=== PATIENT | female | born 1985 | race Two or more races ===

== ENCOUNTER 2025-06-26 09:42 | Emergency (ER) | payer MEDICAID, SELFPAY ==
[2025-06-26 09:42] VITALS: BMI 27.3
[2025-06-26 09:53] VITALS: BP 125/73; PULSE 96; RESP 18; TEMP 36.9; O2SAT 97; BMI 25.0
--- NOTE | 2025-06-26 10:07 | PD.EDRME ---
Rapid Medical Screening Exam E Arrival date/time: 06/26/25 09:42 This is a 40-year-old female that comes into the emergency room with complaints of abdominal pain abdominal distention and bilateral lower extremity swelling. Patient states she was sent by her primary doctor. Patient denies fever or chills. Patient denies any nausea vomiting diarrhea. Patient abdomen seems distended. Patient states has been distended for about a week. Patient denies . Patient reports drinking alcohol but states she does not drink every day. I have greeted and performed a focused initial assessment of this patient. Initial appropriate labs ordered at this time. A comprehensive ED assessment and evaluation of the patient and analysis of all test and completion of medical decision making process will be conducted by additional ED provider. Chief Complaint: Abdominal Pain Time Seen by Provider: 06/26/25 09:42 Vital signs: Vital Signs Temperature 98.4 F 06/26/25 09:53 Pulse Rate 96 06/26/25 09:53 Respiratory Rate 18 06/26/25 09:53 Blood Pressure 125/73 06/26/25 09:53 Pulse Oximetry (%) 97 06/26/25 09:53 Oxygen Delivery Method Room Air 06/26/25 09:53
[2025-06-26 10:43] LABS: Basophils # (Auto) 0.1 Thou/mm3 (0.0-0.2); Basophils % (Auto) 1 % (0-2.5); Eosinophils # (Auto) 0.1 Thou/mm3 (0.0-0.5); Eosinophils % (Auto) 1 % (0-10); Immature Granulocytes Auto 0.05 Thou/mm3 (0.00-0.00); Lymphocytes # (Auto) 1.4 Thou/mm3 (1.0-4.8); Lymphocytes % (Auto) 12 % (10-50); Mean Corpuscular HGB Conc 30.6 g/dl (31.0-37.0); Mean Corpuscular Hemoglobin 25.2 pg (25.0-35.0); Mean Corpuscular Volume 82 fL (80-100); Monocytes # (Auto) 1.2 Thou/mm3 (0.0-0.8); Monocytes % (Auto) 10 % (0-12); Neutrophils # (Auto) 8.6 Thou/mm3 (1.8-7.7); Neutrophils % (Auto) 76 % (37-80); Nucleated Red Blood Cell # 0.00 Thou/mm3 (0.00-0.00); Nucleated Red Blood Cell % 0 /100 WBC (0); Platelet Count 100 Thou/mm3 (140-440); RDW Standard Deviation 61.1 fL (36.4-46.3); Red Blood Count 2.26 Miln/mm3 (4.00-5.20); White Blood Count 11.4 Thou/mm3 (3.6-11.0)
[2025-06-26 11:06] LABS: Alanine Aminotransferase 8 U/L (10-49); Albumin, Serum 2.6 gm/dL (3.5-5.0); Albumin/Globulin Ratio 0.7 (1.2-2.2); Alkaline Phosphatase 224 U/L (46-116); Anion Gap 14 (7-16); Aspartate Amino Transferase 65 U/L (0-34); BUN/Creatinine Ratio 6 Ratio (12-20); Bilirubin,Total 4.7 mg/dL (0.3-1.2); Blood Urea Nitrogen 7 mg/dL (9-23); Calcium 7.6 mg/dL (8.3-10.6); Calcium (Corrected) 8.7 mg/dL (8.5-10.1); Carbon Dioxide 20.0 mMol/L (20.0-31.0); Chloride 92 mMol/L (98-107); Creatinine (Component) 1.2 mg/dL (0.6-1.3); Estimated Creatinine Clearance 50.3 mL/min (>60); Globulin 4.0 gm/dL (2.3-3.5); Glucose 88 mg/dL (74-106); Lipase 25 U/L (12-53); Osmolality,Calculated 250 (275-295); Potassium 3.8 mMol/L (3.4-5.1); Sodium 126 mMol/L (136-145); Total Protein 6.6 gm/dL (5.7-8.2); eGFR 59 See Note
[2025-06-26 11:19] LABS: Hematocrit 18.6 % (36.0-46.0); Hemoglobin 5.7 g/dL (12.0-16.0)
[2025-06-26 11:20] LABS: Path Review Blood Smear Sent to Pathologist
--- NOTE | 2025-06-26 14:46 | PC.NURSE ---
CALLED FOR PT FROM LOBBY/OUTSIDE, NO [email or web address]@ [phone]
--- NOTE | 2025-06-26 15:36 | PC.NURSE ---
NO ANSWER IN LOBBY OR OUTSID OF ED ENTRANCE, X 3 AT [phone] AN D@ [phone].
== END 2025-06-26 15:37 | disposition left against medical advice (07) ==
LOC: SERX 10:14
PROVIDERS: Nurse Practitioner Family; Emergency Provider Emergency Medicine; PCP Family Medicine
DX: R10.9 Unspecified abdominal pain (principal); R22.43 Localized swelling, mass and lump, lower limb, bilateral; R14.0 Abdominal distension (gaseous); Z53.29 Procedure and treatment not carried out because of patient's decision for other reasons
CPT/HCPCS: 36415; 36430; 80053; 81001; 81025; 83690; 85025; 86850; 86900; 86901; 99284

== ENCOUNTER 2025-06-30 14:36 | Inpatient (IN) | payer MEDICAID, SELFPAY ==
[2025-06-30 14:43] VITALS: BP 112/53; PULSE 91; RESP 17; TEMP 36.9; O2SAT 99; BMI 23.4
--- NOTE | 2025-06-30 14:53 | XR_ITS ---
EXAMINATION: PA chest single view TECHNIQUE: Upright PA chest single view Date and time: June 30, 2025, 1715 hours INDICATION: Shortness of breath and abdomen swelling today. FINDINGS: Reduced inspiratory effort Early pneumonia left base with small left pleural effusion No pulmonary edema The osseous structures are intact IMPRESSION: Early pneumonia left base with small left pleural effusion
--- NOTE | 2025-06-30 14:54 | EDRME_ITS ---
Rapid Medical Screening Exam E Arrival date/time: 06/30/25 14:36 Chief Complaint: Abdominal Pain Time Seen by Provider: 06/30/25 14:45 Vital signs: Vital Signs Temperature 98.5 F 06/30/25 14:43 Pulse Rate 91 06/30/25 14:43 Respiratory Rate 17 06/30/25 14:43 Blood Pressure 112/53 L 06/30/25 14:43 Pulse Oximetry (%) 99 06/30/25 14:43 Oxygen Delivery Method Room Air 06/30/25 14:43 [facility] Narrative: Abdominal swelling, BLE swelling and jaundice for the past week. Denies known history of cirrhosis
--- NOTE | 2025-06-30 14:54 | EKG_ITS ---
[facility] Test Date: 2025-06-30 Pat Name: JAMAR PEREZ Department: Room: - Gender: Female [employer]: : 1985 Requested By: Diony Scott Order Number: [id number] Reading MD: Diony Scott Measurements Intervals [place] Rate: 87 P: 28 ID: [id number] QRS: 7 QRSD: 90 T: -20 QT: 388 QTc: 468 Interpretive Statements SINUS RHYTHM POSSIBLE ANTERIOR MYOCARDIAL INFARCTION , OF INDETERMINATE AGE [30 ms Q WAVE IN V3/V4, OR R < 0.2 mV IN V4] No previous ECG available for comparison /[id number]/[email or web address]/[id number].pdf
[2025-06-30 15:25] LABS: Basophils # (Auto) 0.0 Thou/mm3 (0.0-0.2); Basophils % (Auto) 0 % (0-2.5); Eosinophils # (Auto) 0.1 Thou/mm3 (0.0-0.5); Eosinophils % (Auto) 1 % (0-10); Immature Granulocytes Auto 0.06 Thou/mm3 (0.00-0.00); Lymphocytes # (Auto) 0.7 Thou/mm3 (1.0-4.8); Lymphocytes % (Auto) 7 % (10-50); Mean Corpuscular HGB Conc 32.3 g/dl (31.0-37.0); Mean Corpuscular Hemoglobin 26.2 pg (25.0-35.0); Mean Corpuscular Volume 81 fL (80-100); Monocytes # (Auto) 1.0 Thou/mm3 (0.0-0.8); Monocytes % (Auto) 10 % (0-12); Neutrophils # (Auto) 8.1 Thou/mm3 (1.8-7.7); Neutrophils % (Auto) 81 % (37-80); Nucleated Red Blood Cell # 0.02 Thou/mm3 (0.00-0.00); Nucleated Red Blood Cell % 0 /100 WBC (0); Platelet Count 102 Thou/mm3 (140-440); RDW Standard Deviation 58.2 fL (36.4-46.3); Red Blood Count 1.95 Miln/mm3 (4.00-5.20); White Blood Count 10.0 Thou/mm3 (3.6-11.0)
[2025-06-30 15:30] LABS: Hematocrit 15.8 % (36.0-46.0); Hemoglobin 5.1 g/dL (12.0-16.0)
[2025-06-30 15:35] LABS: Ammonia 50 uMol/L (11-32); B-Type Natriuretic Peptide 189 pg/mL (0-100)
[2025-06-30 15:39] LABS: Alanine Aminotransferase 12 U/L (10-49); Albumin, Serum 2.7 gm/dL (3.5-5.0); Albumin/Globulin Ratio 0.7 (1.2-2.2); Alkaline Phosphatase 200 U/L (46-116); Anion Gap 14 (7-16); Aspartate Amino Transferase 86 U/L (0-34); BUN/Creatinine Ratio 13 Ratio (12-20); Bilirubin,Total 5.5 mg/dL (0.3-1.2); Blood Urea Nitrogen 10 mg/dL (9-23); Calcium 8.2 mg/dL (8.3-10.6); Calcium (Corrected) 9.2 mg/dL (8.5-10.1); Carbon Dioxide 18.5 mMol/L (20.0-31.0); Chloride 88 mMol/L (98-107); Creatinine (Component) 0.8 mg/dL (0.6-1.3); Estimated Creatinine Clearance 74.7 mL/min (>60); Globulin 4.0 gm/dL (2.3-3.5); Glucose 103 mg/dL (74-106); Lipase 60 U/L (12-53); Osmolality,Calculated 241 (275-295); Potassium 3.4 mMol/L (3.4-5.1); Sodium 120 mMol/L (136-145); Total Protein 6.7 gm/dL (5.7-8.2); Troponin I < 0.002 ng/mL (0.0-0.045); eGFR > 60 See Note
--- NOTE | 2025-06-30 15:51 | XR_ITS ---
Examination: Abdomen sonogram, Limited Date and time of exam: June 30, 2025, 1608 hours INDICATIONS: Abdominal distention beginning 4 days ago, elevated liver function test on laboratory examination today. Technique: Real-time severino scale transabdominal sonographic images of the upper abdomen obtained. Findings: Gallbladder sludge, no gallstones, normal gallbladder wall. Normal common bile duct 0.3 cm. 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
--- NOTE | 2025-06-30 16:35 | XR_ITS ---
Examination: CT abdomen with intravenous contrast CT pelvis with intravenous contrast 2-D coronal reconstructions 2-D sagittal reconstructions Date and time of exam: June 30, 2025, 1941 hours INDICATIONS: Onset generalized abdominal pain beginning 3 days ago. CTDI: vol (mGy) 6.66 DLP: (mGycm) 373 Technique: Multiple axial sections of the abdomen and pelvis have been obtained. 64 slice high-resolution scanner used. 3 mm axial sections have been obtained, post intravenous injection 60 cc Isovue 370 2-D sagittal, coronal reconstructions obtained. Low dose protocols were performed. One or more of the following dose reduction techniques were used; automated exposure control, adjustment of the mA and/or KV according to patient size, use of iterative reconstruction technique. Findings: Cirrhosis, no focal liver lesions Significant ascites Mild splenomegaly Contracted gallbladder No pancreatic or adrenal mass Anasarca No hydronephrosis Aorta normal size Partial visualization normal-appearing appendix No bowel obstruction No pelvic mass Mild thickening of the urinary bladder wall Mild osteopenia IMPRESSION: Cirrhosis Significant ascites Anasarca No bowel obstruction or appendicitis
[2025-06-30 16:40] LABS: Alcohol, Blood Medical < 3.0 mg/dL (0-10.0)
[2025-06-30 16:42] LABS: INR 1.5 (0.9-1.3); Partial Thromboplastin Time 30.2 Seconds (22.0-36.0); Prothrombin Time 15.6 Seconds (9.0-12.2)
--- NOTE | 2025-06-30 17:31 | PD.EDABDPN ---
ED Abdominal Pain RME/HPI General Chief Complaint: Abdominal Pain Stated complaint: KEYUR LEG SWELLING/ABD DISTENDED X4D/COUGH Time seen by provider: 06/30/25 14:45 Arrival date/time: 06/30/25 14:36 RME / HPI RME / HPI narrative: Abdominal swelling, BLE swelling and jaundice for the past week. Denies known history of cirrhosis DR. MCGRAW MAIN ED EVALUATION 40 year old female with no stated medical history presents to the ED for evaluation of abdominal pain and distention beginning 4 days ago. Pain described as aching in sensation located throughout, rating as moderate. Accompanied by yellowing of skin, and bilateral leg swelling. Patient additionally complains of a cough producing yellow phlegm also beginning 4 days ago. Denies any history of similar symptoms. Denies fevers, chills, chest pain, shortness of breath, n/v/d, or urinary symptoms. Denies any bleeding. Denies being on her menses. Patient admits to drinking alcohol once in a while and during those times drinks only 3 beers. Denies daily alcohol use. Related Data Previous Rx's ?Medication ?Instructions ?Recorded furosemide 20 mg tablet (Lasix) 20 mg PO QAM Cirrhosis 3 months 07/06/25 #90 tabs lactulose 10 gram/15 mL oral 20 g (30 mL) PO BID Cirrhosis 1 07/06/25 solution month #1,800 mL multivitamin with folic acid 400 1 tab PO QDAY 1 month #30 tabs 07/06/25 mcg tablet (Tab-A-Carol) spironolactone 50 mg tablet 50 mg PO QAM Cirrhosis 3 months 07/06/25 #90 tabs sucralfate 100 mg/mL oral 1 g (10 mL) PO QID Ulcers 3 months 07/06/25 suspension #3,600 mL thiamine mononitrate (vit B1) 100 100 mg PO QDAY Alcohol Use 07/06/25 mg tablet Disorder 2 weeks #14 tabs midodrine 5 mg tablet 5 mg PO TID PRN hypotension 2 07/07/25 months #180 tabs Allergies Allergy/AdvReac Type Severity Reaction Status Date / Time No Known Drug Allergies Allergy Verified 06/26/25 09:45 Review of Systems Review of Systems Systems Reviewed: All systems reviewed, normal except as documented Past Medical History Past Medical History NEUROLOGIC: Negative Neurological Disorders CARDIAC: Negative Cardiac Disorders GASTROINTESTINAL: Negative Gastrointestinal Disorders or Hepatitis GENITOURINARY: Negative Genitourinary Disorders or Renal Disease MUSCULOSKELETAL: Negative Musculoskeletal Disorders ENDOCRINE: Negative Endocrine Disorders HEMATOLOGIC: Negative Blood Disorders OTHER HISTORY: Negative Hospitalization Surgical History SURGICAL: Positive Section Social History SMOKING STATUS: Never smoker SUBSTANCE USE: does not use ED Exam Narrative Physical exam: GENERAL APPEARANCE: alert and oriented x 4, jaundice, pallor, mildly tachypneic HEENT: Normocephalic, atraumatic; pupils equal, round, reactive to light; EOMI; scleral icterus; mucous membranes pink, moist; oropharynx clear NECK: Supple LUNGS: CTABL; no wheezes, no rales, no rhonchi HEART: Regular rate, regular rhythm; normal S1, S2; no murmurs ABDOMEN: distended; normal BS; soft, no tenderness, no guarding, no rebound; no masses, no organomegaly, no hernia BACK: no CVA tenderness EXTREMITIES: atraumatic; no edema NEUROLOGIC: awake; alert and oriented x4; cranial nerves II-XII grossly intact; no focal sensory or motor deficits PSYCHIATRIC: appropriate mood and affect SKIN: warm, dry, jaundice and pale; no rashes Course Course Course Narrative: 1800p: Patient signed out to Dr. Waters pending CT and final disposition. Quality Measures none Orders Category Date Time Status Bedside COVID-19 Antigen Test NOW Care 06/30/25 18:07 Completed COVID-19 Screening Questionnaire NOW Care 06/30/25 20:[address] Screening NOW Care 06/30/25 16:35 Completed Decision to Admit X1 Care 06/30/25 20:58 Completed EKG (ED ONLY) *Do not use* NOW Care 06/30/25 14:54 Completed Endoscopy Consents .On arrival Care 06/30/25 21:53 Completed Miscellaneous Nursing Order NOW Care 06/30/25 21:53 Completed Saline [Insert IV] NOW Care 06/30/25 18:07 Completed Straight [In and Out Catheter] X1 Care 06/30/25 18:07 Completed Transfuse,blood/blood products NOW Care 06/30/25 15:35 Completed Consult to Gastroenterology Stat Cons 06/30/25 20:[address] abdomen pelvis w con Stat Exams 06/30/25 16:35 Completed CXR [XR chest 1V] Stat Exams 06/30/25 14:53 Completed EKG (ED Only) Stat Exams 06/30/25 14:54 Draft US abdomen limited Stat Exams 06/30/25 15:51 Completed Alcohol, Blood Medical Stat Lab 06/30/25 15:47 Completed Ammonia Stat Lab 06/30/25 15:07 Completed Amylase Stat Lab 06/30/25 18:31 Completed Antibody Identification Stat Lab 06/30/25 15:47 Completed BNP [B-Type Natriuretic Peptide] Stat Lab 06/30/25 15:07 Completed Bilirubin,Direct Stat Lab 06/30/25 18:31 Completed CBC Stat Lab 06/30/25 15:07 Completed CMP [Comprehensive Metabolic Panel] Stat Lab 06/30/25 15:07 Completed Drug Screen,Urine Stat Lab 06/30/25 17:15 Completed HCG Qualitative,Urine Stat Lab 06/30/25 17:15 Completed Hepatitis Acute Panel Stat Lab 06/30/25 15:07 Completed Influenza A & B Rapid Panel Stat Lab 07/01/25 23:00 Completed LDH (Lactate Dehydrogenase) Stat Lab 06/30/25 18:31 Completed Lipase Stat Lab 06/30/25 15:07 Completed Magnesium Stat Lab 06/30/25 18:31 Completed Misc Send Out* Stat Lab 06/30/25 18:31 Completed PT [Prothrombin Time with INR] Stat Lab 06/30/25 15:07 Completed PTT [Partial Thromboplastin Time] Stat Lab 06/30/25 15:07 Completed Red Blood Cells Stat Lab 06/30/25 15:47 Completed TSH [Thyroid Stimulating Hormone] Stat Lab 06/30/25 18:31 Completed Troponin I Stat Lab 06/30/25 15:07 Completed Type and Screen Stat Lab 06/30/25 15:47 Completed UA [Urinalysis] Stat Lab 06/30/25 17:15 Completed VBG [Venous Blood Gas] Stat Lab 06/30/25 18:31 Completed Furosemide Inj [Lasix Inj] Med 06/30/25 18:07 Discontinued 40 mg IVP X1 ONE Ondansetron Inj [Zofran Inj] Med 06/30/25 18:07 Discontinued 4 mg IVP X1 ONE POTASSIUM CHL 10% Liq 15 ML Med 06/30/25 18:04 Discontinued 40 meq PO X1 ONE cefTRIAXone/D5w 1gm IV premix [Rocephin/D5w 1gm IV Med 06/30/25 19:02 Discontinued premix] 1 gm in 50 ml IV X1 Vital Signs Vital signs: Vital Signs Temperature 98.5 F 06/30/25 14:43 Pulse Rate 91 06/30/25 14:43 Respiratory Rate 17 06/30/25 14:43 Blood Pressure 112/53 L 06/30/25 14:43 Pulse Oximetry (%) 99 06/30/25 14:43 Oxygen Delivery Method Room Air 06/30/25 14:43 Pulse ox is 99% on room air which is adequate. Abdominal Pain MDM MDM Narrative MDM Narrative:: Evelyn Lund am scribing for and in the presence of Dr. Mcgraw. Patient data External records reviewed:: [facility] previous records Clinical information provided by:: patient Social determinants that could affect healthcare access:: alcohol use Patient has the following chronic illnesses:: None reported How is presenting disease/condition affected by chronic disease/condition?: no chronic disease Evaluation data The following diagnostics were reviewed and interpreted by me:: lab results, radiology exam(s) and EKG tracing(s) (EKG @ 14:57p. NSR, rate 87, no STEMI. ) Lab and/or radiology exams considered but not ordered:: None Interpretation Summary: Ordering Physician: Diony Scott PA-C Date of Service: 06/30/25 Procedure(s): XR chest 1V Accession Number(s): [id number] cc: Valerio Powell MD; Nadeem Tellez MD; Diony Scott PA-C~ EXAMINATION: PA chest single view TECHNIQUE: Upright PA chest single view Date and time: June 30, 2025, 1715 hours INDICATION: Shortness of breath and abdomen swelling today. FINDINGS: Reduced inspiratory effort Early pneumonia left base with small left pleural effusion No pulmonary edema The osseous structures are intact IMPRESSION: Early pneumonia left base with small left pleural effusion Dictated By: Nadeem Tellez MD Signed By: <Electronically signed by Nadeem Tellez MD in OV> 06/30/25 165 Ordering Physician: Pily Mcgraw MD Date of Service: 06/30/25 Procedure(s): US abdomen limited Accession Number(s): [id number] cc: Valerio Powell MD; Nadeem Tellez MD; Pily Mcgraw MD~ Examination: Abdomen sonogram, Limited Date and time of exam: June 30, 2025, 1608 hours INDICATIONS: Abdominal distention beginning 4 days ago, elevated liver function test on laboratory examination today. Technique: Real-time severino scale transabdominal sonographic images of the upper abdomen obtained. Findings: Gallbladder sludge, no gallstones, normal gallbladder wall. Normal common bile duct 0.3 cm. 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 Dictated By: Nadeem Tellez MD Signed By: <Electronically signed by Nadeem Tellez MD in OV> 06/30/25 1727 Medications / Prescriptions Medications or Prescriptions considered but not ordered:: None Medication administrations:: Medication Administration History Discontinued Medications Acetaminophen (Acetaminophen 325 Mg Tablet) 650 mg PO Q8H PRN PRN Reason: Fever >100.3 or pain 1-3 Stop: 07/30/25 23:14 Last Admin: 07/06/25 20:41 Dose: 650 mg Documented By: Admin: 07/02/25 22:31 Dose: 650 mg Documented By: CMC Al Hydrox/Mg Hydrox/Simethicone (Mg Hyd/Al Hyd/Will (Maalox Reg) Susp 30 Ml Udc) 30 ml PO Q4HR CRISTOPHER Stop: 07/31/25 21:59 Last Admin: 07/07/25 10:48 Dose: 30 ml Documented By: [email or web address] Admin: 07/07/25 05:20 Dose: 30 ml Documented By: Admin: 07/07/25 01:53 Dose: 30 ml Documented By: Admin: 07/06/25 21:24 Dose: 30 ml Documented By: Admin: 07/06/25 18:14 Dose: Not Given Documented By: KA Non-Admin Reason: Patient Refused Admin: 10/14/25 13:48 Dose: 30 ml Documented By: Admin: 07/06/25 09:02 Dose: 30 ml Documented By: Admin: 07/06/25 05:31 Dose: 30 ml Documented By: Admin: 07/06/25 01:02 Dose: 30 ml Documented By: Admin: 07/05/25 22:02 Dose: 30 ml Documented By: Admin: 07/05/25 17:20 Dose: 30 ml Documented By: Admin: 07/05/25 14:31 Dose: 30 ml Documented By: Admin: 07/05/25 09:51 Dose: 30 ml Documented By: Admin: 07/05/25 05:29 Dose: 30 ml Documented By: Admin: 07/05/25 01:21 Dose: 30 ml Documented By: Admin: 07/04/25 21:11 Dose: 30 ml Documented By: Admin: 07/04/25 18:10 Dose: 30 ml Documented By: Admin: 07/04/25 14:00 Dose: Not Given Documented By: VL Non-Admin Reason: Patient Refused Admin: 07/04/25 10:50 Dose: 30 ml Documented By: Admin: 07/04/25 05:11 Dose: 30 ml Documented By: Admin: 07/04/25 01:20 Dose: 30 ml Documented By: Admin: 07/03/25 21:07 Dose: 30 ml Documented By: Admin: 07/03/25 17:29 Dose: 30 ml Documented By: SC Admin: 07/03/25 14:05 Dose: 30 ml Documented By: SC Admin: 07/03/25 12:30 Dose: 30 ml Documented By: SC Admin: 07/03/25 05:23 Dose: 30 ml Documented By: Admin: 07/03/25 01:22 Dose: 30 ml Documented By: Admin: 07/02/25 21:12 Dose: 30 ml Documented By: Admin: 07/02/25 17:38 Dose: 30 ml Documented By: Admin: 07/02/25 14:11 Dose: 30 ml Documented By: Admin: 07/02/25 09:53 Dose: 30 ml Documented By: Admin: 07/02/25 04:54 Dose: 30 ml Documented By: Admin: 07/02/25 03:00 Dose: 30 ml Documented By: Admin: 07/01/25 20:47 Dose: 30 ml Documented By: TREE Benzocaine (Benzocaine 20% (Hurricaine) Mondamin 1 Dose) 1 dose TOP X1 ONE Stop: 07/01/25 18:15 Benzocaine (Benzocaine 20% (Hurricaine) Mondamin 1 Dose) Confirm Administered Dose 1 dose TOP .STK-MED ONE Stop: 07/01/25 18:32 Bumetanide (Bumetanide Inj 0.25 Mg/Ml Vial 4 Ml) 1 mg IVP BID [facility] Stop: 08/02/25 20:59 Last Admin: 07/04/25 08:53 Dose: 1 mg Documented By: Admin: 07/03/25 21:08 Dose: 1 mg Documented By: CHRISTINE Bumetanide (Bumetanide Inj 0.25 Mg/Ml Vial 4 Ml) 1 mg IVP QDAY [facility] Stop: 08/04/25 08:59 Last Admin: 07/05/25 09:50 Dose: 1 mg Documented By: LIBERTAD Diphenhydramine HCl (Diphenhydramine Inj 50 Mg/Ml Vial) 25 mg IVP [id number] PRN PRN Reason: MODERATE SEDATION Stop: 07/01/25 20:08 Diphenhydramine HCl (Diphenhydramine Inj 50 Mg/Ml Vial) Confirm Administered Dose 50 mg .ROUTE .STK-MED ONE Stop: 07/01/25 18:33 Fentanyl Citrate (Fentanyl Cit Inj 50 Mcg/Ml Amp 2ml) 50 mcg IVP Q2M PRN PRN Reason: MODERATE SEDATION Stop: 07/01/25 20:08 Fentanyl Citrate (Fentanyl Cit Inj 50 Mcg/Ml Amp 2ml) Confirm Administered Dose 100 mcg .ROUTE .STK-MED ONE Stop: 07/01/25 18:32 Folic Acid (Folic Acid 1 Mg Tablet) 1 mg PO QDAY [facility] Stop: 08/05/25 08:59 Last Admin: 07/07/25 09:24 Dose: 1 mg Documented By: Admin: 07/06/25 08:23 Dose: 1 mg Documented By: PREMA Furosemide (Furosemide Inj 10 Mg/Ml 4ml Vial) 40 mg IVP X1 ONE Stop: 06/30/25 18:08 Last Admin: 06/30/25 19:06 Dose: 40 mg Documented By: TOMMY Furosemide (Furosemide 40 Mg Tablet) 40 mg PO QDAY CRISTOPHER Stop: 07/31/25 08:59 Furosemide (Furosemide Inj 10 Mg/Ml 4ml Vial) 40 mg IVP QDAY CRISTOPHER Stop: 07/31/25 08:59 Furosemide (Furosemide Inj 10 Mg/Ml 4ml Vial) 20 mg IVP QDAY CRISTOPHER Stop: 07/31/25 08:59 Last Admin: 07/03/25 08:42 Dose: 20 mg Documented By: SC Admin: 07/02/25 09:53 Dose: 20 mg Documented By: Admin: 07/01/25 09:59 Dose: 20 mg Documented By: LIBERTAD Furosemide (Furosemide Inj 10 Mg/Ml Vial 2 Ml) 20 mg IVP X1 ONE Stop: 07/01/25 13:57 Last Admin: 07/01/25 16:17 Dose: 20 mg Documented By: LIBERTAD Furosemide (Furosemide 20 Mg Tablet) 20 mg PO QAM CRISTOPHER Stop: 08/06/25 08:59 Last Admin: 07/07/25 09:24 Dose: 20 mg Documented By: LOU Heparin Sodium (Porcine) (Heparin Sod Inj 5000 Unit/Ml Vial) 5,000 unit SC Q8HR CRISTOPHER Stop: 07/14/25 22:14 Last Admin: 07/07/25 05:19 Dose: 5,000 unit Documented By: DUARTE Co-signed By: OK Admin: 07/06/25 21:24 Dose: 5,000 unit Documented By: DUARTE Co-signed By: OK Admin: 07/06/25 13:50 Dose: Not Given Documented By: PREMA Non-Admin Reason: Patient Refused Admin: 07/06/25 06:11 Dose: 5,000 unit Documented By: DUARTE Co-signed By: MANDO Admin: 07/05/25 21:59 Dose: Not Given Documented By: EMERALD Non-Admin Reason: low platelets hold per Admin: 07/05/25 14:31 Dose: 5,000 unit Documented By: LIBERTAD Co-signed By: SANTI Admin: 07/05/25 05:30 Dose: 5,000 unit Documented By: CHRISTINE Co-signed By: IDA Admin: 07/04/25 21:11 Dose: 5,000 unit Documented By: CHRISTINE Co-signed By: JACOB Admin: 07/04/25 14:09 Dose: 5,000 unit Documented By: VL Co-signed By: AC Admin: 07/04/25 05:12 Dose: 5,000 unit Documented By: CHRISTINE Co-signed By: WO Admin: 07/03/25 21:07 Dose: 5,000 unit Documented By: CMC Co-signed By: KISHA Admin: 07/03/25 14:06 Dose: 5,000 unit Documented By: SC Co-signed By: JT Admin: 07/03/25 05:24 Dose: 5,000 unit Documented By: CMC Co-signed By: IG Admin: 07/02/25 21:13 Dose: 5,000 unit Documented By: CMC Co-signed By: VR Admin: 07/02/25 14:11 Dose: 5,000 unit Documented By: MAMADOU Co-signed By: LIBERTAD Admin: 07/02/25 04:54 Dose: 5,000 unit Documented By: JACOB Co-signed By: KUSHAL Admin: 07/01/25 20:47 Dose: 5,000 unit Documented By: TREE Co-signed By: IDA Admin: 07/01/25 16:16 Dose: 5,000 unit Documented By: LIBERTAD Co-signed By: ALANA Admin: 07/01/25 06:10 Dose: 5,000 unit Documented By: TREE Co-signed By: IDA Admin: 06/30/25 22:33 Dose: 5,000 unit Documented By: MICHAEL Co-signed By: TOY Ceftriaxone Sodium/Dextrose (Rocephin/D5w 1gm Iv Premix) 1 gm in 50 mls @ 100 mls/hr IV X1 ONE Stop: 06/30/25 19:31 Last Infusion: 06/30/25 20:18 Dose: Infused Documented By: Admin: 06/30/25 19:31 Dose: 100 mls/hr Documented By: EE Ceftriaxone Sodium/Dextrose (Rocephin/D5w 1gm Iv Premix) 1 gm in 50 mls @ 100 mls/hr IV QDAY CRISTOPHER Stop: 07/08/25 08:59 Last Infusion: 07/05/25 19:25 Dose: Infused Documented By: Admin: 07/05/25 09:51 Dose: 100 mls/hr Documented By: Infusion: 07/04/25 09:40 Dose: Infused Documented By: Admin: 07/04/25 09:10 Dose: 100 mls/hr Documented By: Infusion: 07/03/25 09:20 Dose: Infused Documented By: Admin: 07/03/25 08:50 Dose: 100 mls/hr Documented By: SC Infusion: 07/02/25 10:23 Dose: Infused Documented By: Admin: 07/02/25 09:53 Dose: 100 mls/hr Documented By: Infusion: 07/01/25 10:29 Dose: Infused Documented By: Admin: 07/01/25 09:59 Dose: 100 mls/hr Documented By: ASHLYEB Octreotide Acetate 1,000 mcg/ (Sodium Chloride) 102 mls @ 5.1 mls/hr IV .Q20H CRISTOPHER; Protocol Stop: 07/05/25 18:24 Octreotide Acetate 1,000 mcg/ (Sodium Chloride) 102 mls @ 5.1 mls/hr IV .Q20H ONE; Protocol Stop: 07/01/25 18:25 Last Infusion: 07/01/25 20:23 Dose: 0 mcg/hr, 0 mls/hr Documented By: Admin: 07/01/25 00:32 Dose: 50 mcg/hr, 5.1 mls/hr Documented By: HV Albumin Human (Albuminex 25% Ivpb) 25 gm in 100 mls @ 100 mls/hr IV QDAY CRISTOPHER Stop: 07/31/25 08:11 Last Admin: 07/03/25 08:41 Dose: 100 mls/hr Documented By: SC Infusion: 07/02/25 10:53 Dose: Infused Documented By: Admin: 07/02/25 09:53 Dose: 100 mls/hr Documented By: Infusion: 07/01/25 10:58 Dose: Infused Documented By: Admin: 07/01/25 10:19 Dose: Not Given Documented By: LEDEB Non-Admin Reason: dup med, pt received daily dose Admin: 07/01/25 09:58 Dose: 100 mls/hr Documented By: LIBERTAD Octreotide Acetate 1,000 mcg/ (Sodium Chloride) 102 mls @ 5.1 mls/hr IV .Q20H CRISTOPHER; Protocol Stop: 07/06/25 19:31 Last Admin: 07/06/25 21:41 Dose: Not Given Documented By: DUARTE Non-Admin Reason: Cancelled by Provider Admin: 07/06/25 07:55 Dose: 50 mcg/hr, 5.1 mls/hr Documented By: Infusion: 07/06/25 07:55 Dose: Infused Documented By: Admin: 07/05/25 12:37 Dose: 50 mcg/hr, 5.1 mls/hr Documented By: Infusion: 07/05/25 08:07 Dose: Infused Documented By: Admin: 07/04/25 12:07 Dose: 50 mcg/hr, 5.1 mls/hr Documented By: Infusion: 07/04/25 10:05 Dose: Infused Documented By: Admin: 07/03/25 14:05 Dose: 50 mcg/hr, 5.1 mls/hr Documented By: SC Infusion: 07/03/25 10:27 Dose: Infused Documented By: SC Admin: 07/02/25 14:27 Dose: 50 mcg/hr, 5.1 mls/hr Documented By: Infusion: 07/02/25 14:27 Dose: Infused Documented By: Admin: 07/01/25 20:44 Dose: 50 mcg/hr, 5.1 mls/hr Documented By: HV Potassium Chloride (Kcl Ivpb) 10 meq in 100 mls @ 100 mls/hr IV Q1H CRISTOPHER Stop: 07/02/25 12:05 Last Admin: 07/02/25 18:18 Dose: Not Given Documented By: LIBERTAD Non-Admin Reason: retimed 4th bag Admin: 07/02/25 15:43 Dose: 50 mls/hr Documented By: Infusion: 07/02/25 14:59 Dose: Infused Documented By: Admin: 07/02/25 12:59 Dose: 50 mls/hr Documented By: Infusion: 07/02/25 11:53 Dose: Infused Documented By: Admin: 07/02/25 09:53 Dose: 50 mls/hr Documented By: TC Magnesium Sulfate (Magnesium Sulfate Ivpb) 4 gm in 50 mls @ 12.5 mls/hr IV X1 ONE Stop: 07/02/25 12:06 Last Infusion: 07/02/25 14:15 Dose: Infused Documented By: Admin: 07/02/25 10:15 Dose: 12.5 mls/hr Documented By: TC Potassium Chloride (Kcl Ivpb) 10 meq in 100 mls @ 100 mls/hr IV Q1H CRISTOPHER Stop: 07/02/25 19:14 Last Admin: 07/02/25 18:18 Dose: 50 mls/hr Documented By: LIBERTAD Albumin Human (Albuminex 25% Ivpb) 25 gm in 100 mls @ 100 mls/hr IV X1 ONE Stop: 07/03/25 10:59 Last Admin: 07/03/25 10:57 Dose: Not Given Documented By: SC Non-Admin Reason: per md montes pt already received this am Potassium Phosphate (Pot Phos 15 Mmol In Ns 250 Ml) 15 mmol in 250 mls @ 62.5 mls/hr IV Q4H CRISTOPHER Stop: 07/04/25 15:37 Last Admin: 07/04/25 14:13 Dose: 62.5 mls/hr Documented By: Infusion: 07/04/25 13:10 Dose: Infused Documented By: Admin: 07/04/25 09:10 Dose: 62.5 mls/hr Documented By: VL Potassium Phosphate (Pot Phos 15 Mmol In Ns 250 Ml) 15 mmol in 250 mls @ 62.5 mls/hr IV X1 ONE Stop: 07/04/25 19:37 Last Infusion: 07/05/25 19:26 Dose: Infused Documented By: Admin: 07/04/25 18:10 Dose: 62.5 mls/hr Documented By: VL Magnesium Sulfate (Magnesium Sulfate Ivpb) 4 gm in 50 mls @ 12.5 mls/hr IV X1 ONE Stop: 07/04/25 11:38 Last Admin: 07/04/25 10:47 Dose: 12.5 mls/hr Documented By: VL Magnesium Sulfate (Magnesium Sulfate Ivpb) 4 gm in 50 mls @ 12.5 mls/hr IV X1 ONE Stop: 07/05/25 11:50 Last Infusion: 07/05/25 19:25 Dose: Infused Documented By: Admin: 07/05/25 09:50 Dose: 12.5 mls/hr Documented By: ASHLYEB Albumin Human (Albuminex 25% Ivpb) 25 gm in 100 mls @ 100 mls/hr IV QDAY CRISTOPHER Stop: 08/05/25 08:21 Last Admin: 07/07/25 09:06 Dose: 100 mls/hr Documented By: Infusion: 07/06/25 10:05 Dose: Infused Documented By: Admin: 07/06/25 09:05 Dose: 100 mls/hr Documented By: Infusion: 07/06/25 09:05 Dose: Infused Documented By: Admin: 07/06/25 09:03 Dose: 100 mls/hr Documented By: PREMA Ibuprofen (Ibuprofen Tab 400 Mg Tablet) 400 mg PO Q6HR PRN PRN Reason: Fever > 100.3 Stop: 07/30/25 21:58 Ibuprofen (Ibuprofen Tab 600 Mg Tablet) 600 mg PO Q6H PRN PRN Reason: PAIN SCALE 1-3 (mild Stop: 07/30/25 21:58 Ketorolac Tromethamine (Ketorolac Inj 30 Mg/Ml Vial) 15 mg IVP Q6HR PRN PRN Reason: Pain 4-7 Stop: 07/05/25 23:14 Lactulose (Lactulose Syrup 20 Gm/30 Ml Udc) 20 gm PO TID CRISTOPHER; Protocol Stop: 07/30/25 22:14 Last Admin: 07/04/25 05:11 Dose: 20 gm Documented By: Admin: 07/03/25 21:07 Dose: 20 gm Documented By: Admin: 07/03/25 14:05 Dose: 20 gm Documented By: SC Admin: 07/03/25 05:24 Dose: Not Given Documented By: [facility] Non-Admin Reason: Patient Refused Admin: 07/02/25 21:12 Dose: 20 gm Documented By: Admin: 07/02/25 14:11 Dose: 20 gm Documented By: Admin: 07/02/25 04:54 Dose: 20 gm Documented By: Admin: 07/01/25 20:47 Dose: 20 gm Documented By: Admin: 07/01/25 16:16 Dose: 20 gm Documented By: LIBERTAD Comments: pt in [place] for para Admin: 07/01/25 06:10 Dose: 20 gm Documented By: Admin: 06/30/25 22:33 Dose: 20 gm Documented By: MICHAEL Lactulose (Lactulose Syrup 20 Gm/30 Ml Udc) 20 gm PO TID CRISTOPHER; Protocol Stop: 07/30/25 22:14 Last Admin: 07/05/25 05:29 Dose: 20 gm Documented By: Admin: 07/04/25 21:12 Dose: Not Given Documented By: CHRISTINE Non-Admin Reason: pt has had 4 bM today Admin: 07/04/25 14:09 Dose: 20 gm Documented By: RIAN Lactulose (Lactulose Syrup 20 Gm/30 Ml Udc) 20 gm PO BID CRISTOPHER; Protocol Stop: 08/04/25 08:59 Last Admin: 07/07/25 09:26 Dose: 20 gm Documented By: Admin: 07/06/25 20:40 Dose: 20 gm Documented By: Admin: 07/06/25 08:19 Dose: 20 gm Documented By: Admin: 07/05/25 20:01 Dose: Not Given Documented By: EMERALD Non-Admin Reason: Per Protocol Admin: 07/05/25 09:52 Dose: Not Given Documented By: LIBERTAD Non-Admin Reason: >3 BM Lidocaine HCl (Lidocaine Inj Pf 1% 30 Ml Vial) Confirm Administered Dose 30 ml .ROUTE .STK-MED ONE Stop: 07/01/25 14:02 Midazolam HCl (Midazolam Inj 1 Mg/Ml Vial 2 Ml) 2 mg IVP Q2M PRN PRN Reason: Moderate Sedation Stop: 07/01/25 20:08 Midazolam HCl (Midazolam Inj 1 Mg/Ml Vial 2 Ml) Confirm Administered Dose 4 mg .ROUTE .STK-MED ONE Stop: 07/01/25 18:32 Midodrine (Midodrine 5 Mg Tablet) 10 mg PO TID [facility] Stop: 08/05/25 08:29 Last Admin: 07/06/25 09:02 Dose: 10 mg Documented By: PREMA Midodrine (Midodrine 5 Mg Tablet) 10 mg PO TID [facility] Stop: 08/05/25 13:59 Last Admin: 07/07/25 05:23 Dose: 10 mg Documented By: Admin: 07/06/25 21:22 Dose: 10 mg Documented By: Admin: 07/06/25 13:50 Dose: Not Given Documented By: PREMA Non-Admin Reason: Per Protocol Multivitamins (Multivitamins Tablet) 1 tab PO QDAY [facility] Stop: 08/05/25 08:59 Last Admin: 07/07/25 09:24 Dose: 1 tab Documented By: Admin: 07/06/25 08:22 Dose: 1 tab Documented By: PREMA Ondansetron HCl (Ondansetron Inj 2 Mg/Ml Inj 2 Ml) 4 mg IVP X1 ONE; Protocol Stop: 06/30/25 18:08 Last Admin: 06/30/25 19:06 Dose: 4 mg Documented By: TOMMY Ondansetron HCl (Ondansetron Inj 2 Mg/Ml Inj 2 Ml) 4 mg IVP Q6H PRN; Protocol PRN Reason: NAUSEA OR VOMITING Stop: 07/30/25 21:58 Pantoprazole Sodium (Pantoprazole Inj 40 Mg Vial) 40 mg IVP BID CRISTOPHER Stop: 07/30/25 22:29 Last Admin: 07/01/25 09:59 Dose: 40 mg Documented By: Admin: 06/30/25 23:52 Dose: 40 mg Documented By: MICHAEL Pantoprazole Sodium (Pantoprazole 40 Mg Tablet) 40 mg PO BID CRISTOPHER Stop: 07/30/25 22:29 Pantoprazole Sodium (Pantoprazole 40 Mg Tablet) 40 mg PO BID CRISTOPHER; Protocol Stop: 07/31/25 20:59 Last Admin: 07/07/25 09:25 Dose: 40 mg Documented By: Admin: 07/06/25 20:00 Dose: 40 mg Documented By: Admin: 07/06/25 08:22 Dose: 40 mg Documented By: Admin: 07/05/25 20:01 Dose: 40 mg Documented By: Admin: 07/05/25 09:51 Dose: 40 mg Documented By: Admin: 07/04/25 21:11 Dose: 40 mg Documented By: Admin: 07/04/25 09:08 Dose: 40 mg Documented By: Admin: 07/03/25 21:08 Dose: 40 mg Documented By: Admin: 07/03/25 08:48 Dose: 40 mg Documented By: SC Admin: 07/02/25 21:12 Dose: 40 mg Documented By: Admin: 07/02/25 09:53 Dose: 40 mg Documented By: Admin: 07/01/25 20:45 Dose: 40 mg Documented By: TREE Potassium Chloride (Potassium Chloride 10% 20 Meq/15 Ml Udc) 40 meq PO X1 ONE Stop: 06/30/25 18:05 Last Admin: 06/30/25 19:07 Dose: 40 meq Documented By: TOMMY Potassium Chloride (Potassium Chloride 10% 20 Meq/15 Ml Udc) 40 meq PO X1 ONE Stop: 07/01/25 13:58 Last Admin: 07/01/25 16:16 Dose: 40 meq Documented By: LIBERTAD Comments: pt in [place] for para Potassium Chloride (Potassium Chloride 10% 20 Meq/15 Ml Udc) 40 meq PO X1 ONE Stop: 07/02/25 08:07 Last Admin: 07/02/25 11:27 Dose: 40 meq Documented By: MAMADOU Potassium Phos/Sodium Phos (Naph,[facility] Mbdb 1 Packet (1.5 Gm)) 1 packet PO X1 ONE Stop: 07/03/25 08:08 Last Admin: 07/03/25 08:48 Dose: 1 packet Documented By: EMY Potassium Phos/Sodium Phos (Naph,[facility] Mbdb 1 Packet (1.5 Gm)) 1 packet PO X1 ONE Stop: 07/06/25 08:20 Last Admin: 07/06/25 09:03 Dose: 1 packet Documented By: PREMA Promethazine HCl/Dextromethorphan (Promethazine/Dm Syrup 5 Ml Dose) 10 ml PO Q4HR PRN; Protocol PRN Reason: COUGH Stop: 08/03/25 05:29 Last Admin: 07/04/25 06:08 Dose: 10 ml Documented By: CHRISTINE Rifaximin (Rifaximin 550 Mg Tablet) 550 mg PO BID [facility] Stop: 07/07/25 22:14 Last Admin: 07/01/25 09:59 Dose: 550 mg Documented By: Admin: 07/01/25 00:32 Dose: 550 mg Documented By: TREE Rifaximin (Rifaximin 550 Mg Tablet) 550 mg PO BID [facility] Stop: 07/09/25 09:59 Last Admin: 07/04/25 21:11 Dose: 550 mg Documented By: Admin: 07/04/25 09:08 Dose: 550 mg Documented By: Admin: 07/03/25 21:07 Dose: 550 mg Documented By: Admin: 07/03/25 08:49 Dose: 550 mg Documented By: SC Admin: 07/02/25 21:12 Dose: 550 mg Documented By: Admin: 07/02/25 10:29 Dose: 550 mg Documented By: MAMADOU Spironolactone (Spironolactone 25 Mg Tablet) 100 mg PO DAILY CRISTOPHER Stop: 07/31/25 08:59 Last Admin: 07/06/25 08:22 Dose: Not Given Documented By: PREMA Non-Admin Reason: Held for BP per MD Admin: 07/05/25 09:51 Dose: 100 mg Documented By: Admin: 07/04/25 09:11 Dose: 100 mg Documented By: Admin: 07/03/25 08:49 Dose: 100 mg Documented By: Admin: 07/02/25 09:53 Dose: 100 mg Documented By: Admin: 07/01/25 09:59 Dose: 100 mg Documented By: LIBERTAD Spironolactone (Spironolactone 25 Mg Tablet) 50 mg PO DAILY CRISTOPHER Stop: 08/06/25 08:59 Last Admin: 07/07/25 09:26 Dose: 50 mg Documented By: [email or web address] Sucralfate (Sucralfate Susp 1 Gm/10 Ml Udc) 1 gm PO QID CRISTOPHER Stop: 07/31/25 20:59 Last Admin: 07/07/25 05:20 Dose: 1 gm Documented By: Admin: 07/06/25 20:00 Dose: 1 gm Documented By: Admin: 07/06/25 17:21 Dose: 1 gm Documented By: Admin: 07/06/25 12:07 Dose: 1 gm Documented By: Admin: 07/06/25 05:31 Dose: 1 gm Documented By: Admin: 07/05/25 20:01 Dose: 1 gm Documented By: Admin: 07/05/25 17:20 Dose: 1 gm Documented By: Admin: 07/05/25 12:09 Dose: 1 gm Documented By: Admin: 07/05/25 05:30 Dose: 1 gm Documented By: Admin: 07/04/25 21:11 Dose: 1 gm Documented By: Admin: 07/04/25 17:05 Dose: 1 gm Documented By: Admin: 07/04/25 12:11 Dose: 1 gm Documented By: Admin: 07/04/25 05:11 Dose: 1 gm Documented By: Admin: 07/03/25 21:07 Dose: 1 gm Documented By: Admin: 07/03/25 17:29 Dose: 1 gm Documented By: SC Admin: 07/03/25 12:30 Dose: 1 gm Documented By: SC Admin: 07/03/25 05:23 Dose: 1 gm Documented By: Admin: 07/02/25 21:12 Dose: 1 gm Documented By: Admin: 07/02/25 17:38 Dose: 1 gm Documented By: Admin: 07/02/25 12:58 Dose: 1 gm Documented By: Admin: 07/02/25 04:54 Dose: 1 gm Documented By: Admin: 07/01/25 20:45 Dose: 1 gm Documented By: TREE Thiamine HCl (Thiamine 100 Mg Tablet) 100 mg PO QDAY CRISTOPHER Stop: 08/05/25 08:59 Last Admin: 07/07/25 09:24 Dose: 100 mg Documented By: [email or web address] Admin: 07/06/25 08:22 Dose: 100 mg Documented By: PREMA None Consultations Consultation(s) initiated? (list below): No Diagnosis Differential diagnosis abdominal pain: abdominal pain and other (jaundice, cirrhosis) Most likely diagnosis given after review of the tests above:: Jaundice Admission Indicated Admission indicated?: not indicated Explain why admission is indicated or not indicated:: Signed out pending final disposition. Admission Request Was there a request for admission?: No Disposition Plan Disposition Plan: other (specify) (Patient signed out to Dr. Waters. ) Discharge Plan Plan Patient Disposition: Admit Acute Care w/in Hospital Patient condition on transfer: Stable Problem List Clinical Impression: Liver cirrhosis, Severe anemia
[2025-06-30 18:01] LABS: Collection Type, Urine Clean Catch
[2025-06-30 18:07] LABS: HCG Qualitative,Urine Negative
[2025-06-30 18:26] VITALS: BP 120/73; PULSE 80; RESP 17; TEMP 36.4; O2SAT 99
[2025-06-30 18:37] LABS: Bacteria,Urine Rare; Bilirubin,Urine Negative (Negative); Blood,Urine 3+ (Negative); Clarity,Urine Turbid (Clear/Hazy); Color,Urine Yellow (Lt Yel-Yel); Glucose, Urine Negative (Negative); Ketones,Urine Trace (Negative); Leukocyte Esterase,Urine Positive (Negative); Nitrite,Urine Negative (Negative); PH,Urine 6.0 (5.0-7.0); Protein,Urine Negative (Neg - Trace); RBC,Urine 70 /hpf (0-3); Specific Gravity,Urine 1.007 (1.001-1.035); Squamous Epithelial Cell,Urine < 1 /hpf (0-5); Urobilinogen,Urine Negative mg/dL (0.0-1.0); WBC,Urine 22 /hpf (0-5)
[2025-06-30 18:38] LABS: Base Excess, Venous -3 (-3-3); O2 Saturation, Venous 85 % (96-97); PCO2, Venous 26 mmHg (36-56); PO2, Venous 47 mmHg (15-58); pH, Venous 7.50 (7.33-7.66)
[2025-06-30 19:06] VITALS: BP 120/73; PULSE 83
[2025-06-30] MEDS: FUROSEMIDE INJ 10 MG/ML 4ML VIAL 40 MG IVP (19:06)
[2025-06-30] MEDS: ONDANSETRON INJ 2 MG/ML INJ 2 ML 4 MG IVP (19:06)
[2025-06-30] MEDS: POTASSIUM CHLORIDE 10% 20 MEQ/15 ML UDC 40 MEQ PO (19:07)
[2025-06-30 19:23] LABS: Amylase 55 U/L (30-118); Bilirubin,Direct 3.5 mg/dL (0.0-0.3); Magnesium 1.6 mg/dL (1.6-2.6); Thyroid Stimulating Hormone 1.73 uIU/mL (0.55-4.78)
[2025-06-30] MEDS: cefTRIAXone/D5w 1gm IV premix 1 GM/50 ML BAG IV (19:31)
[2025-06-30 19:34] LABS: Amphetamine/Methamp Scrn,U Negative (Negative); Barbiturate Screen,Urine Negative (Negative); Benzodiazepines Screen,Urine Negative (Negative); Benzoylecgonine Screen, Ur Negative (Negative); Fentanyl Screen,Urine Negative (Negative); Opiate Screen,Urine Negative (Negative); THC Screen,Urine Negative (Negative)
[2025-06-30 20:13] VITALS: BP 125/72; PULSE 80; RESP 20; TEMP 36.6; O2SAT 100
--- NOTE | 2025-06-30 20:16 | EDNOTE_ITS ---
Emergency Room Addendum <Sidra Powell - Last Filed: 06/30/25 22:03> Addendum Narrative: I took over the care from Dr. Mcgraw at 6 PM on 06/30/2025, see notes for complete H&P and ED course. I reviewed all diagnostic test results. My review of the CT abdomen pelvis report is: - Cirrhosis - Significant ascites - Anasarca At this point, diagnoses include: Liver cirrhosis Severe anemia Treatment here from me included: Lasix 40mg IV Zofran 4mg IV Oral KCL 40meq Rocephin 1g IV I discussed the case with our venetian blind machine operator, Dr. Goncalves, and our hospitalist. About the presentation and exam and diagnostics and treatments here. And need of further care in the hospital. Will accept the patient. Ramiro Waters MD <Ramiro Waters MD - Last Filed: 07/01/25 02:25> Addendum Narrative: I took over the care from Dr. Mcgraw at 6 PM on 06/30/2025, see notes for complete H&P and ED course. I reviewed all diagnostic test results. At this point, diagnoses include: Liver cirrhosis Severe anemia I discussed the case with our venetian blind machine operator, Dr. Goncalves, and our hospitalist. About the presentation and exam and diagnostics and treatments here. And need of further care in the hospital. Will accept the patient. Ramiro Waters MD
[2025-06-30 20:22] LABS: Hepatitis A Antibody IgM Non Reactive (Non React); Hepatitis B Core Antibody IgM Non Reactive (Non React); Hepatitis B Surface Antigen Non Reactive (Non React); Hepatitis C Antibody Non Reactive (Non React)
--- NOTE | 2025-06-30 21:52 | ESCONSULT_ITS ---
HPI Data of Consult Primary Care Provider: Valerio Powell MD Consult Narrative Reason for consult: H/H 5.1/15.8 History of present illness: 40 years old female presented the hospital with abdominal pain bloating discomfort as well as feeling weak she was found to have anasarca Ascites as well as a hemoglobin of 5.1 and hematocrit of 15.8 with a platelet count 202,000 pro time INR of 1.5 Total bilirubin 6.0 AST ALT 125 and 14 and alk phos of 189 CT scan of the abdomen pelvis with contrast showed total Cirrhosis ascites and anasarca Abdominal ultrasound shows sludge in the gallbladder cc:: cc: Review of Systems Review of Systems Systems Reviewed: All systems reviewed, normal except as documented Meds Home Medications and Allergies Allergies Allergy/AdvReac Type Severity Reaction Status Date / Time No Known Drug Allergies Allergy Verified 06/26/25 09:45 Exam Vital Signs Temp Pulse Resp BP Pulse Ox O2 Del Method 97.8 F 80 20 125/72 100 Room Air 06/30/25 20:13 06/30/25 20:13 06/30/25 20:13 06/30/25 20:13 06/30/25 20:13 06/30/25 20:13 Constitutional Comments: Chronically ill-appearing Routine HEENT Exam Comments: Icteric sclera Routine Abdominal Exam Comments: Distended with ascites Results Labs 07/01/25 10:47 07/01/25 16:30 Labs: Short CBC 06/30/25 Range/Units 15:07 WBC 10.0 (3.6-11.0) Thou/mm3 Hgb 5.1 L* (12.0-16.0) g/dL Hct 15.8 L* (36.0-46.0) % Plt Count 102 L (140-440) Thou/mm3 BMP 06/30/25 15:07 Sodium 120 L Potassium 3.4 Chloride 88 L Carbon Dioxide 18.5 L BUN 10 Creatinine 0.8 Glucose 103 Calcium 8.2 L Cardiac Enzymes 06/30/25 Range/Units 15:07 Troponin I < 0.002 (0.0-0.045) ng/mL Liver Function 06/30/25 06/30/25 Range/Units 15:07 18:31 Total Bilirubin 5.5 H (0.3-1.2) mg/dL Direct Bilirubin 3.5 H (0.0-0.3) mg/dL AST 86 H (0-34) U/L ALT 12 (10-49) U/L Alkaline Phosphatase 200 H (46-116) U/L Albumin 2.7 L (3.5-5.0) gm/dL Urine 06/30/25 Range/Units 17:15 Urine Color Yellow (Lt Yel-Yel) Urine Clarity Turbid A (Clear/Hazy) Urine pH 6.0 (5.0-7.0) Ur Specific [place] 1.007 (1.001-1.035) Urine Protein Negative (Neg - Trace) Urine Glucose (UA) Negative (Negative) ABG Interpretation ABG results: 06/30/25 18:31 VBG pH 7.50 VBG pCO2 26 L VBG pO2 47 VBG Base Excess -3 Assessment and Plan Additional Assessment & Plan Additional Plan: # End-stage liver disease in the setting of excessive alcohol abuse with advanced portal hypertension and intractable ascites anasarca and a GI bleed Plan Agree with the blood transfusion Would recommend IV Protonix and octreotide infusion Consent obtained for fiberoptic esophagogastroduodenoscopy with possible biopsy possible therapeutic intervention under intravenous moderate sedation Recommend therapeutic ultrasound-guided paracentesis and send the fluid for complete analysis Will follow the patient Advised complete abstinence from alcohol Thank you very much for the opportunity to participate in the care of this patient
--- NOTE | 2025-06-30 22:05 | ESHP_ITS ---
<Statement entered by Shaheen Briseno MD - 07/02/25 06:01> I have discussed and was present for the essential components of the history, physical examination, diagnosis, and treatment plan with the resident. I agree with the patient's care as documented by the resident and amended herein by me. Shaheen Briseno MD FACP. Documentation for date of: 06/30/25 HPI History of Present Illness History of present illness: Ms. Hand is a 40 y/o [place]ian-speaking female with no PMHx who presents with abdominal pain and distension x4 days. Associated with b/l LE swelling. Interview was limited due to patient's distress 2/2 abdominal pain. She reports drinking 3 beers per day for the past two weeks and noted that she was recently drunk for about 1 week after the of her baby one month ago. When asked how her baby , she stated that she fell but did not provide any further information. Denies nausea, vomiting, changes in bowel movements, pruritus. Denies similar episodes in the past. Patient did not comment when asked time/date of last alcoholic beverage. Patient uses Tylenol PRN when drinking. Of note, patient was previously seen in the ED 06/26 for similar sx (abdominal pain/distension). ED course: Afebrile, VSS. Labs significant for hgb 5.1, HCT 15.8, plt 102. Na 120, Cl 88, Ca 8.2, Albumin 2.7, AST 86, alk phos 200, ALT WNL, total bili 3.5. Ammonia 50. BNP 189. Lipase 60, amylase WNL. TSH WNL. UDs negative, EtOH <3. Hepatitis panel non-reactive. UA 3+ blood, +LE, RBC 70, WBC 22. CXR showed early PNA left base, small L pleural effusion. EKG NSR HR 87, QTc 468. Abd US showed gallbladder sludge, no cholelithiasis or cholecystitis. Primary hepatocellular disease vs cirrhosis. Moderate ascites. CT a/p w/ showed cirrhosis, ascites, anasarca. No bowel obstruction or appendicitis. PMHx: none reported Allergies: NKDA Home meds: none SgHx: C section x3 SHx: Denies smoking, recreational drug use. Reports 3 beers/day x 2 weeks. Did not comment on previous EtOH use hx FHx: none reported Review of Systems Constitutional Comments: 14 point ROS negative other than HPI Exam Vital Signs Temp Pulse Resp BP Pulse Ox O2 Del Method 97.8 F 80 20 125/72 100 Room Air 06/30/25 20:13 06/30/25 20:13 06/30/25 20:13 06/30/25 20:13 06/30/25 20:13 06/30/25 20:13 Narrative Exam General: Lying in bed in acute distress Eye: PERRL, EOMI, sleral icterus HENT: Normocephalic, atraumatic, normal hearing, moist oral mucosa Neck: Supple, non-tender, no JVD, no lymphadenopathy Lungs: Clear to auscultation bilaterally, non-labored respirations, symmetric chest rise, no use of accessory muscles Heart: Normal S1 and S2, no S3 or S4 appreciated. Normal rate and regular rhythm, no murmurs, rubs gallops. 2+ b/l LE edema Abdomen: Distended, diffusely TTP in all quadrants Musculoskeletal: Normal range of motion and strength Skin: Telangiectasia present on right collarbone, spider angiomata, jaundice, caput medusae Neurologic: Alert, awake and oriented x3. CN II-XII grossly intact. No focal neuro deficits. No asterixis Psychiatric: Cooperative, appropriate mood and affect Results: Labs 06/30/25 15:07 06/30/25 15:07 Labs: Short CBC 06/30/25 Range/Units 15:07 WBC 10.0 (3.6-11.0) Thou/mm3 Hgb 5.1 L* (12.0-16.0) g/dL Hct 15.8 L* (36.0-46.0) % Plt Count 102 L (140-440) Thou/mm3 BMP 06/30/25 15:07 Sodium 120 L Potassium 3.4 Chloride 88 L Carbon Dioxide 18.5 L BUN 10 Creatinine 0.8 Glucose 103 Calcium 8.2 L Cardiac Enzymes 06/30/25 Range/Units 15:07 Troponin I < 0.002 (0.0-0.045) ng/mL Liver Function 06/30/25 06/30/25 Range/Units 15:07 18:31 Total Bilirubin 5.5 H (0.3-1.2) mg/dL Direct Bilirubin 3.5 H (0.0-0.3) mg/dL AST 86 H (0-34) U/L ALT 12 (10-49) U/L Alkaline Phosphatase 200 H (46-116) U/L Albumin 2.7 L (3.5-5.0) gm/dL Urine 06/30/25 Range/Units 17:15 Urine Color Yellow (Lt Yel-Yel) Urine Clarity Turbid A (Clear/Hazy) Urine pH 6.0 (5.0-7.0) Ur Specific [place] 1.007 (1.001-1.035) Urine Protein Negative (Neg - Trace) Urine Glucose (UA) Negative (Negative) ABG Interpretation ABG results: 06/30/25 18:31 VBG pH 7.50 VBG pCO2 26 L VBG pO2 47 VBG Base Excess -3 Quality Measures Quality Measures none Medications Home Medications and Allergies Allergies Allergy/AdvReac Type Severity Reaction Status Date / Time No Known Drug Allergies Allergy Verified 06/26/25 09:45 Visit Medications Discontinued Medications Furosemide (Furosemide Inj 10 Mg/Ml 4ml Vial) 40 mg IVP X1 ONE Stop: 06/30/25 18:08 Last Admin: 06/30/25 19:06 Dose: 40 mg Ceftriaxone Sodium/Dextrose (Rocephin/D5w 1gm Iv Premix) 1 gm in 50 mls @ 100 mls/hr IV X1 ONE Stop: 06/30/25 19:31 Last Infusion: 06/30/25 20:18 Dose: Infused Ondansetron HCl (Ondansetron Inj 2 Mg/Ml Inj 2 Ml) 4 mg IVP X1 ONE; Protocol Stop: 06/30/25 18:08 Last Admin: 06/30/25 19:06 Dose: 4 mg Potassium Chloride (Potassium Chloride 10% 20 Meq/15 Ml Udc) 40 meq PO X1 ONE Stop: 06/30/25 18:05 Last Admin: 06/30/25 19:07 Dose: 40 meq Assessment & Plan Plan Ms. Hand is a 40 y/o [place]ian-speaking female with no PMHx who presents with abdominal pain, LE edema b/l and distension x4 days. Admitted for acutely decompensated ESLD, c/f GI bleed. #Acutely decompensated End-stage liver disease #Thrombocytopenia #Hyperbilirubinemia #Moderate ascites #Anasarca #c/f GI bleed Initial presentation: Diffuse abdominal pain, abd distension x4 days, spider angiomata, telangiectasia, jaundice, scleral icterus, caput medusae, b/l LE edema 2+, ascites. AOx3, no asterixis. Chronic EtOH and Tylenol use Ammonia: 50 Albumin: 2.7 Hepatitis panel: non-reactive Kidney function: eGFR >60 Elevated AST, alk phos. ALT WNL Synthetic liver dysfunction present (PT 15.6, INR 1.5) Abd US: Primary hepatocellular disease vs cirrhosis. CT a/p w/: cirrhosis, ascites, anasarca Meds given in ED: Lasix 40 mg IV, Zofran 4 mg IV, KCl 40 mEq IV, Ceftriaxone 1g IV. Ordered 2U pRBC, pending transfusion MELD-Na: 26 --> 19.6% est 3 month mortality Child-[place]: 11 --> class C, life expectancy 1-3 years DDX cause: GI bleed, EtOH, supratherapeutic dosing of Tylenol Plan: - Lactulose 20 mg PO TID - Lasix 40 mg IV daily - Spironolactone 100 mg PO daily - Rifaximin 550 mg PO BID - Ceftriaxone 1 g IV daily for SBP prophylaxis - Pantoprazole 40 mg IV BID for GI bleed - Octreotide 50 mcg load + 50 mcg/hr gtt IV for suspected GI bleed given hgb 5.1 - Consulted GI for suspected GI bleed, appreciate recs. Plan for EGD 07/01. NPO - CTM for s/sx GI bleed, daily CBC - Pending lipid panel, A1C - Large volume paracentesis w/ analysis (cell count, culture, albumin, total protein, LDH) --> give albulmin 6-8 g/L removed - Daily weights - Transfuse pRBC if hgb <7 - Transfuse plt if plt <10 to prevent spontaneous hemorrhage - Limit Acetaminophen use <=2-3 g/day for mild 1-3 pain (650 mg PO q8h). Toradol 15 mg IV q6h PRN pain 4-7. Can do dilaudid 0.5 mg q6h if pain 8-10. Avoid NSAIDs 2/2 risk of hepatorenal syndrome. #Normocytic normochromic anemia i/s/o acute decompensated ESLD, c/f GI bleed Pt denies melena, hematochezia, hematemesis Hgb 5.1, HCT 15.8 ED ordered 2U pRBC Plan: - Pending pRBC transfusion, post-transfusion H&H - CTM for s/sx GI bleed, daily CBC #Small left pleural effusion i/s/o ESLD Seen on CXR 06/30 spO2 appropriate on RA, no respiratory distress Plan: - Diuretics management as above #Gallbladder sludge Seen on abd US No cholelithiasis, no cholecystitis Plan: - CTM for worsening abd pain #Hyponatremia i/s/o ESLD Na 120 Plan: - Diuretics management as above #EtOH use disorder Drinks 3 beers per day, EtOH use exacerbated by recent of her baby Plan: - Will need social insurance administrator referral - Counseled patient on EtOH cessation Checklist Dispo: Admit to tele, pending EGD 07/01 Diet: Clears Bowel Reg: lactulose 20 g PO TID VTE ppx: heparin subQ (plt 102) GI ppx: Pantoprazole 40 mg IV Pain mgmt: Limit Acetaminophen use <=2-3 g/day for mild 1-3 pain (650 mg PO q8h). Toradol 15 mg IV q6h PRN pain 4-7. Can do dilaudid 0.5 mg q6h if pain 8- 10. Code status: Full Plan discussed with Dr. Mojica and Dr. Suzanna Esquivel MD PGY1
[2025-06-30] MEDS: HEPARIN SOD INJ 5000 UNIT/ML VIAL SC (22:33)
[2025-06-30] MEDS: LACTULOSE SYRUP 20 GM/30 ML UDC PO (22:33)
[2025-06-30 22:37] VITALS: BP 108/64; PULSE 80; RESP 19; TEMP 36.5; O2SAT 100
[2025-06-30 23:55] LABS: LDH (Lactate Dehydrogenase) 178 U/L (120-246)
[2025-07-01] VITALS (28 sets, daily range): BP systolic 99–146; BP diastolic 56–82; PULSE 56–82; RESP 12–23; TEMP 35.9–37; O2SAT 91–100; BMI 23.2
[2025-07-01] MEDS: OCTREOTIDE ACET INJ 1,000 MCG in SODIUM CHLORIDE 0.9% 100 ML 5.1 MCG IV ×2 (00:32→20:44)
[2025-07-01] MEDS: LACTULOSE SYRUP 20 GM/30 ML UDC PO ×3 (06:10→20:47)
[2025-07-01] MEDS: HEPARIN SOD INJ 5000 UNIT/ML VIAL SC ×3 (06:10→20:47)
[2025-07-01 09:13] LABS: OBS Performed By VERAH; OBS QC OK? Yes; Occult Blood, Stool Positive (Negative)
[2025-07-01] MEDS: ALBUMIN HUMAN-KJDA 25% IVPB 25 GM/100 ML BTL IV (09:58)
[2025-07-01] MEDS: SPIRONOLACTONE 25 MG TABLET 100 MG PO (09:59)
[2025-07-01] MEDS: cefTRIAXone/D5w 1gm IV premix 1 GM/50 ML BAG IV (09:59)
[2025-07-01] MEDS: FUROSEMIDE INJ 10 MG/ML 4ML VIAL 20 MG IVP (09:59)
[2025-07-01 10:20] LABS: Misc Send Out* See Sep Rpt
[2025-07-01 11:14] LABS: Basophils # (Auto) 0.0 Thou/mm3 (0.0-0.2); Basophils % (Auto) 0 % (0-2.5); Eosinophils # (Auto) 0.1 Thou/mm3 (0.0-0.5); Eosinophils % (Auto) 1 % (0-10); Hematocrit 27.6 % (36.0-46.0); Hemoglobin 9.2 g/dL (12.0-16.0); Immature Granulocytes Auto 0.05 Thou/mm3 (0.00-0.00); Lymphocytes # (Auto) 0.7 Thou/mm3 (1.0-4.8); Lymphocytes % (Auto) 8 % (10-50); Mean Corpuscular HGB Conc 33.3 g/dl (31.0-37.0); Mean Corpuscular Hemoglobin 27.7 pg (25.0-35.0); Mean Corpuscular Volume 83 fL (80-100); Monocytes # (Auto) 1.0 Thou/mm3 (0.0-0.8); Monocytes % (Auto) 11 % (0-12); Neutrophils # (Auto) 6.8 Thou/mm3 (1.8-7.7); Neutrophils % (Auto) 79 % (37-80); Nucleated Red Blood Cell # 0.00 Thou/mm3 (0.00-0.00); Nucleated Red Blood Cell % 0 /100 WBC (0); Platelet Count 88 Thou/mm3 (140-440); RDW Standard Deviation 51.9 fL (36.4-46.3); Red Blood Count 3.32 Miln/mm3 (4.00-5.20); White Blood Count 8.6 Thou/mm3 (3.6-11.0)
--- NOTE | 2025-07-01 12:00 | XR_ITS ---
Examination: Ultrasound-guided paracentesis Abdominal sonogram limited Date and time of exam: July 01, 2025, 1419 hours INDICATIONS: Cirrhosis, increasing ascites abdominal distention this week Informed consent provided. A timeout was completed verifying correct patient, procedure, site, positioning, and special adequate movement if applicable. Technique: Multiple sonographic images of the abdomen have been obtained. Appropriate area for paracentesis was marked. Local anesthesia is obtained with 1% lidocaine. Yueh catheter is successfully introduced. Findings: Abdominal sonographic images demonstrate sufficient ascitic fluid for paracentesis. After placing the Yueh catheter, 3600 cc of fluid were successfully removed. During and after completion of the procedure the patient appear in satisfactory and stable condition with no complications observed. Estimated blood loss 0 cc Impression: Abdominal ascites Successful ultrasound-guided paracentesis as described above
--- NOTE | 2025-07-01 12:20 | PC.SS ---
Patient Pattie Casrto is a 40 year old female admitted for Acutely Decompensated ESLD. SS met with patient at bedside to discuss discharge plan. Patient reports she lives with her daughter, Beartiz Castro who she reports is her surrogate decision maker [phone] Patient reports she is independent with ADL's and does not utilize any source of DME to assist with ambulation. Choice of pharmacy is [facility]. PCP is Valerio Powell. At time of discharge patient will return back home, Family will provide transportation. Discharge plan: Home Next of kin: DaughterBeatriz
[2025-07-01 12:50] LABS: Sodium 130 mMol/L (136-145)
--- NOTE | 2025-07-01 13:31 | ESPR_ITS ---
<Statement entered by Phil Plascencia MD - 07/04/25 12:14> I reviewed above note and agree with findings and plans. I have also personally examined the patient with medicine team and went over assessment and plan with medical team including internet specialist and resident physician. <Statement entered by Adrián Bond MD - 07/02/25 15:52> I saw and examined patient personally and supervised PGY 1 resident, Dr. Murry with formulating a management plan. I agree with the documentation with the exceptions as listed below. Patient scheduled for EGD and paracentesis today. Currently on octreotide infusion, pantoprazole 40 mg IV twice daily and scheduled on albumin 25 g IV daily. Plan of care discussed with Attending Dr. Temo Bond MD PGY 2 Disclaimer: This note was dictated by speech recognition. Minor errors in electronic publications specialist may be present due to voice recognition software. Documentation for date of: 07/01/25 Subjective Subjective Interval history: Today paracentesis removed 3.6 L. Tele showed sinus rhythm. Patient examined bedside, labs reviewed. AOx2 thought the date was May 2023. States she was initially in abdominal pain but it has resolved because of the medicine we gave her. cured her. She denies all other symptoms. Is unclear about narrative about recent passing of child, states it feels that way. Exam Vital Signs Temp Pulse Resp BP Pulse Ox O2 Del Method 97.4 F 70 19 130/80 94 L Room Air 07/01/25 12:00 07/01/25 12:00 07/01/25 12:00 07/01/25 12:00 07/01/25 12:00 07/01/25 08:00 Narrative Exam General: Lying in bed comfortable NAD Eye: PERRL, EOMI, sleral icterus HENT: Normocephalic, atraumatic, normal hearing, moist oral mucosa Neck: Supple, non-tender, no JVD, no lymphadenopathy Lungs: Clear to auscultation bilaterally, non-labored respirations, symmetric chest rise, no use of accessory muscles Heart: Normal S1 and S2, no S3 or S4 appreciated. Normal rate and regular rhythm, no murmurs, rubs gallops. 2+ b/l LE edema Abdomen: Distended, diffusely TTP in all quadrants Musculoskeletal: Normal range of motion and strength Skin: Telangiectasia present on right collarbone, spider angiomata, caput medusae Neurologic: Alert, awake and oriented x3. CN II-XII grossly intact. No focal neuro deficits. No asterixis Psychiatric: Cooperative, appropriate mood and affect Objective Labs 07/01/25 10:47 07/01/25 16:30 Labs: Laboratory Results - last 24 hr 06/30/25 06/30/25 06/30/25 15:07 15:47 17:15 WBC 10.0 RBC 1.95 L* Hgb 5.1 L* Hct 15.8 L* MCV 81 MCH 26.2 MCHC 32.3 RDW Std Deviation 58.2 H Plt Count 102 L Neut % (Auto) 81 H Lymph % (Auto) 7 L [place] % (Auto) 10 Eos % (Auto) 1 Baso % (Auto) 0 Neut # (Auto) 8.1 H Lymph # (Auto) 0.7 L [place] # (Auto) 1.0 H Eos # (Auto) 0.1 Baso # (Auto) 0.0 Immature Gran # (Auto) 0.06 H Absolute Nucleated RBC 0.02 H Immature Gran % 1 H Nucleated RBC % 0 PT 15.6 H INR 1.5 H APTT 30.2 VBG pH VBG pCO2 VBG pO2 VBG O2 Sat (Rohan) VBG Base Excess Sodium 120 L Potassium 3.4 Chloride 88 L Carbon Dioxide 18.5 L Anion Gap 14 BUN 10 Creatinine 0.8 Estim Creat Clear Calc 74.7 eGFR > 60 BUN/Creatinine Ratio [address] Glu mg/dL Cancelled Hemoglobin A1c Cancelled Calculated Osmolality 241 L Calcium 8.2 L Corrected Calcium 9.2 Magnesium Total Bilirubin 5.5 H Direct Bilirubin AST 86 H ALT 12 Alkaline Phosphatase 200 H Ammonia 50 H Lactate Dehydrogenase Troponin I < 0.002 B-Natriuretic Peptide 189 H Total Protein 6.7 Albumin 2.7 L Globulin 4.0 H Albumin/Globulin Ratio 0.7 L Amylase Lipase 60 H TSH Ur Collection Type Clean Catch Urine Color Yellow Urine Clarity Turbid A Urine pH 6.0 Ur Specific Hayes 1.007 Urine Protein Negative Urine Glucose (UA) Negative Urine Ketones Trace Urine Blood 3+ A Urine Nitrite Negative Urine Bilirubin Negative Urine Urobilinogen (Auto) Negative Ur Leukocyte Esterase Positive Urine RBC 70 H Urine WBC 22 H Ur Squamous Epith Cells < 1 Urine Bacteria Rare Urine HCG, Qual Negative Stool Occult Blood Urine Opiates Screen Negative Urine Fentanyl Screen Negative Ur Barbiturates Screen Negative U Amphetamin/Meth Scrn Negative U Benzodiazepines Scrn Negative U Cocaine Metab Screen Negative U Marijuana (THC) Screen Negative Ethyl Alcohol < 3.0 Hepatitis A IgM Ab Non Reactive Hep Bs Antigen Non Reactive Hep B Core IgM Ab Non Reactive Hepatitis C Antibody Non Reactive Blood Type O Positive Antibody Screen POSITIVE Antibody Identification Anti-S Crossmatch See Detail Blood Bank Wristband ID Yes 06/30/25 07/01/25 07/01/25 18:31 06:49 10:47 WBC 8.6 RBC Hgb Hct MCV MCH MCHC RDW Std Deviation Plt Count Neut % (Auto) Lymph % (Auto) [place] % (Auto) Eos % (Auto) Baso % (Auto) Neut # (Auto) Lymph # (Auto) [place] # (Auto) Eos # (Auto) Baso # (Auto) Immature Gran # (Auto) Absolute Nucleated RBC Immature Gran % Nucleated RBC % PT INR APTT VBG pH 7.50 VBG pCO2 26 L VBG pO2 47 VBG O2 Sat (Rohan) 85 L VBG Base Excess -3 Sodium Potassium Chloride Carbon Dioxide Anion Gap BUN Creatinine Estim Creat Clear Calc eGFR BUN/Creatinine Ratio Glucose Estimated Ave Glu mg/dL Hemoglobin A1c Calculated Osmolality Calcium Corrected Calcium Magnesium 1.6 Total Bilirubin Direct Bilirubin 3.5 H AST ALT Alkaline Phosphatase Ammonia Lactate Dehydrogenase 178 Troponin I B-Natriuretic Peptide Total Protein Albumin Globulin Albumin/Globulin Ratio Amylase 55 Lipase TSH 1.73 Ur Collection Type Urine Color Urine Clarity Urine pH Ur Specific [place] Urine Protein Urine Glucose (UA) Urine Ketones Urine Blood Urine Nitrite Urine Bilirubin Urine Urobilinogen (Auto) Ur Leukocyte Esterase Urine RBC Urine WBC Ur Squamous Epith Cells Urine Bacteria Urine HCG, Qual Stool Occult Blood Positive A Urine Opiates Screen Urine Fentanyl Screen Ur Barbiturates Screen U Amphetamin/Meth Scrn U Benzodiazepines Scrn U Cocaine Metab Screen U Marijuana (THC) Screen Ethyl Alcohol Hepatitis A IgM Ab Hep Bs Antigen Hep B Core IgM Ab Hepatitis C Antibody Blood Type Antibody Screen Antibody Identification Crossmatch Blood Bank Wristband ID 07/01/25 07/01/25 07/01/25 10:47 10:47 10:47 WBC Cancelled RBC 3.32 L Cancelled Hgb 9.2 L D Cancelled Hct 27.6 L D MCV MCH MCHC RDW Std Deviation Plt Count Neut % (Auto) Lymph % (Auto) [place] % (Auto) Eos % (Auto) Baso % (Auto) Neut # (Auto) Lymph # (Auto) [place] # (Auto) Eos # (Auto) Baso # (Auto) Immature Gran # (Auto) Absolute Nucleated RBC Immature Gran % Nucleated RBC % PT INR APTT VBG pH VBG pCO2 VBG pO2 VBG O2 Sat (Rohan) VBG Base Excess Sodium Potassium Chloride Carbon Dioxide Anion Gap BUN Creatinine Estim Creat Clear Calc eGFR BUN/Creatinine Ratio Glucose Estimated Ave Glu mg/dL Hemoglobin A1c Calculated Osmolality Calcium Corrected Calcium Magnesium Total Bilirubin Direct Bilirubin AST ALT Alkaline Phosphatase Ammonia Lactate Dehydrogenase Troponin I B-Natriuretic Peptide Total Protein Albumin Globulin Albumin/Globulin Ratio Amylase Lipase TSH Ur Collection Type Urine Color Urine Clarity Urine pH Ur Specific [place] Urine Protein Urine Glucose (UA) Urine Ketones Urine Blood Urine Nitrite Urine Bilirubin Urine Urobilinogen (Auto) Ur Leukocyte Esterase Urine RBC Urine WBC Ur Squamous Epith Cells Urine Bacteria Urine HCG, Qual Stool Occult Blood Urine Opiates Screen Urine Fentanyl Screen Ur Barbiturates Screen U Amphetamin/Meth Scrn U Benzodiazepines Scrn U Cocaine Metab Screen U Marijuana (THC) Screen Ethyl Alcohol Hepatitis A IgM Ab Hep Bs Antigen Hep B Core IgM Ab Hepatitis C Antibody Blood Type Antibody Screen Antibody Identification Crossmatch Blood Bank Wristband ID 07/01/25 07/01/25 07/01/25 10:47 10:47 10:47 WBC RBC Hgb Hct Cancelled MCV 83 Cancelled MCH 27.7 Cancelled MCHC 33.3 RDW Std Deviation Plt Count Neut % (Auto) Lymph % (Auto) [place] % (Auto) Eos % (Auto) Baso % (Auto) Neut # (Auto) Lymph # (Auto) [place] # (Auto) Eos # (Auto) Baso # (Auto) Immature Gran # (Auto) Absolute Nucleated RBC Immature Gran % Nucleated RBC % PT INR APTT VBG pH VBG pCO2 VBG pO2 VBG O2 Sat (Rohan) VBG Base Excess Sodium Potassium Chloride Carbon Dioxide Anion Gap BUN Creatinine Estim Creat Clear Calc eGFR BUN/Creatinine Ratio Glucose Estimated Ave Glu mg/dL Hemoglobin A1c Calculated Osmolality Calcium Corrected Calcium Magnesium Total Bilirubin Direct Bilirubin AST ALT Alkaline Phosphatase Ammonia Lactate Dehydrogenase Troponin I B-Natriuretic Peptide Total Protein Albumin Globulin Albumin/Globulin Ratio Amylase Lipase TSH Ur Collection Type Urine Color Urine Clarity Urine pH Ur Specific [place] Urine Protein Urine Glucose (UA) Urine Ketones Urine Blood Urine Nitrite Urine Bilirubin Urine Urobilinogen (Auto) Ur Leukocyte Esterase Urine RBC Urine WBC Ur Squamous Epith Cells Urine Bacteria Urine HCG, Qual Stool Occult Blood Urine Opiates Screen Urine Fentanyl Screen Ur Barbiturates Screen U Amphetamin/Meth Scrn U Benzodiazepines Scrn U Cocaine Metab Screen U Marijuana (THC) Screen Ethyl Alcohol Hepatitis A IgM Ab Hep Bs Antigen Hep B Core IgM Ab Hepatitis C Antibody Blood Type Antibody Screen Antibody Identification Crossmatch Blood Bank Wristband ID 07/01/25 07/01/25 07/01/25 10:47 10:47 10:47 WBC RBC Hgb Hct MCV MCH MCHC Cancelled RDW Std Deviation 51.9 H Cancelled Plt Count 88 L Cancelled Neut % (Auto) 79 Lymph % (Auto) [place] % (Auto) Eos % (Auto) Baso % (Auto) Neut # (Auto) Lymph # (Auto) [place] # (Auto) Eos # (Auto) Baso # (Auto) Immature Gran # (Auto) Absolute Nucleated RBC Immature Gran % Nucleated RBC % PT INR APTT VBG pH VBG pCO2 VBG pO2 VBG O2 Sat (Rohan) VBG Base Excess Sodium Potassium Chloride Carbon Dioxide Anion Gap BUN Creatinine Estim Creat Clear Calc eGFR BUN/Creatinine Ratio Glucose Estimated Ave Glu mg/dL Hemoglobin A1c Calculated Osmolality Calcium Corrected Calcium Magnesium Total Bilirubin Direct Bilirubin AST ALT Alkaline Phosphatase Ammonia Lactate Dehydrogenase Troponin I B-Natriuretic Peptide Total Protein Albumin Globulin Albumin/Globulin Ratio Amylase Lipase TSH Ur Collection Type Urine Color Urine Clarity Urine pH Ur Specific [place] Urine Protein Urine Glucose (UA) Urine Ketones Urine Blood Urine Nitrite Urine Bilirubin Urine Urobilinogen (Auto) Ur Leukocyte Esterase Urine RBC Urine WBC Ur Squamous Epith Cells Urine Bacteria Urine HCG, Qual Stool Occult Blood Urine Opiates Screen Urine Fentanyl Screen Ur Barbiturates Screen U Amphetamin/Meth Scrn U Benzodiazepines Scrn U Cocaine Metab Screen U Marijuana (THC) Screen Ethyl Alcohol Hepatitis A IgM Ab Hep Bs Antigen Hep B Core IgM Ab Hepatitis C Antibody Blood Type Antibody Screen Antibody Identification Crossmatch Blood Bank Wristband ID 07/01/25 07/01/25 07/01/25 10:47 10:47 10:47 WBC RBC Hgb Hct MCV MCH MCHC RDW Std Deviation Plt Count Neut % (Auto) Cancelled Lymph % (Auto) 8 L Cancelled [place] % (Auto) 11 Cancelled Eos % (Auto) 1 Baso % (Auto) Neut # (Auto) Lymph # (Auto) [place] # (Auto) Eos # (Auto) Baso # (Auto) Immature Gran # (Auto) Absolute Nucleated RBC Immature Gran % Nucleated RBC % PT INR APTT VBG pH VBG pCO2 VBG pO2 VBG O2 Sat (Rohan) VBG Base Excess Sodium Potassium Chloride Carbon Dioxide Anion Gap BUN Creatinine Estim Creat Clear Calc eGFR BUN/Creatinine Ratio Glucose Estimated Ave Glu mg/dL Hemoglobin A1c Calculated Osmolality Calcium Corrected Calcium Magnesium Total Bilirubin Direct Bilirubin AST ALT Alkaline Phosphatase Ammonia Lactate Dehydrogenase Troponin I B-Natriuretic Peptide Total Protein Albumin Globulin Albumin/Globulin Ratio Amylase Lipase TSH Ur Collection Type Urine Color Urine Clarity Urine pH Ur Specific [place] Urine Protein Urine Glucose (UA) Urine Ketones Urine Blood Urine Nitrite Urine Bilirubin Urine Urobilinogen (Auto) Ur Leukocyte Esterase Urine RBC Urine WBC Ur Squamous Epith Cells Urine Bacteria Urine HCG, Qual Stool Occult Blood Urine Opiates Screen Urine Fentanyl Screen Ur Barbiturates Screen U Amphetamin/Meth Scrn U Benzodiazepines Scrn U Cocaine Metab Screen U Marijuana (THC) Screen Ethyl Alcohol Hepatitis A IgM Ab Hep Bs Antigen Hep B Core IgM Ab Hepatitis C Antibody Blood Type Antibody Screen Antibody Identification Crossmatch Blood Bank Wristband ID 07/01/25 07/01/25 07/01/25 10:47 10:47 10:47 WBC RBC Hgb Hct MCV MCH MCHC RDW Std Deviation Plt Count Neut % (Auto) Lymph % (Auto) [place] % (Auto) Eos % (Auto) Cancelled Baso % (Auto) 0 Cancelled Neut # (Auto) 6.8 Cancelled Lymph # (Auto) 0.7 L [place] # (Auto) Eos # (Auto) Baso # (Auto) Immature Gran # (Auto) Absolute Nucleated RBC Immature Gran % Nucleated RBC % PT INR APTT VBG pH VBG pCO2 VBG pO2 VBG O2 Sat (Rohan) VBG Base Excess Sodium Potassium Chloride Carbon Dioxide Anion Gap BUN Creatinine Estim Creat Clear Calc eGFR BUN/Creatinine Ratio Glucose Estimated Ave Glu mg/dL Hemoglobin A1c Calculated Osmolality Calcium Corrected Calcium Magnesium Total Bilirubin Direct Bilirubin AST ALT Alkaline Phosphatase Ammonia Lactate Dehydrogenase Troponin I B-Natriuretic Peptide Total Protein Albumin Globulin Albumin/Globulin Ratio Amylase Lipase TSH Ur Collection Type Urine Color Urine Clarity Urine pH Ur Specific [place] Urine Protein Urine Glucose (UA) Urine Ketones Urine Blood Urine Nitrite Urine Bilirubin Urine Urobilinogen (Auto) Ur Leukocyte Esterase Urine RBC Urine WBC Ur Squamous Epith Cells Urine Bacteria Urine HCG, Qual Stool Occult Blood Urine Opiates Screen Urine Fentanyl Screen Ur Barbiturates Screen U Amphetamin/Meth Scrn U Benzodiazepines Scrn U Cocaine Metab Screen U Marijuana (THC) Screen Ethyl Alcohol Hepatitis A IgM Ab Hep Bs Antigen Hep B Core IgM Ab Hepatitis C Antibody Blood Type Antibody Screen Antibody Identification Crossmatch Blood Bank Wristband ID 07/01/25 07/01/25 07/01/25 10:47 10:47 10:47 WBC RBC Hgb Hct MCV MCH MCHC RDW Std Deviation Plt Count Neut % (Auto) Lymph % (Auto) [place] % (Auto) Eos % (Auto) Baso % (Auto) Neut # (Auto) Lymph # (Auto) Cancelled [place] # (Auto) 1.0 H Cancelled Eos # (Auto) 0.1 Cancelled Baso # (Auto) 0.0 Immature Gran # (Auto) Absolute Nucleated RBC Immature Gran % Nucleated RBC % PT INR APTT VBG pH VBG pCO2 VBG pO2 VBG O2 Sat (Rohan) VBG Base Excess Sodium Potassium Chloride Carbon Dioxide Anion Gap BUN Creatinine Estim Creat Clear Calc eGFR BUN/Creatinine Ratio Glucose Estimated Ave Glu mg/dL Hemoglobin A1c Calculated Osmolality Calcium Corrected Calcium Magnesium Total Bilirubin Direct Bilirubin AST ALT Alkaline Phosphatase Ammonia Lactate Dehydrogenase Troponin I B-Natriuretic Peptide Total Protein Albumin Globulin Albumin/Globulin Ratio Amylase Lipase TSH Ur Collection Type Urine Color Urine Clarity Urine pH Ur Specific [place] Urine Protein Urine Glucose (UA) Urine Ketones Urine Blood Urine Nitrite Urine Bilirubin Urine Urobilinogen (Auto) Ur Leukocyte Esterase Urine RBC Urine WBC Ur Squamous Epith Cells Urine Bacteria Urine HCG, Qual Stool Occult Blood Urine Opiates Screen Urine Fentanyl Screen Ur Barbiturates Screen U Amphetamin/Meth Scrn U Benzodiazepines Scrn U Cocaine Metab Screen U Marijuana (THC) Screen Ethyl Alcohol Hepatitis A IgM Ab Hep Bs Antigen Hep B Core IgM Ab Hepatitis C Antibody Blood Type Antibody Screen Antibody Identification Crossmatch Blood Bank Wristband ID 07/01/25 07/01/25 07/01/25 10:47 10:47 10:47 WBC RBC Hgb Hct MCV MCH MCHC RDW Std Deviation Plt Count Neut % (Auto) Lymph % (Auto) [place] % (Auto) Eos % (Auto) Baso % (Auto) Neut # (Auto) Lymph # (Auto) [place] # (Auto) Eos # (Auto) Baso # (Auto) Cancelled Immature Gran # (Auto) 0.05 H Cancelled Absolute Nucleated RBC 0.00 Cancelled Immature Gran % 1 H Nucleated RBC % PT INR APTT VBG pH VBG pCO2 VBG pO2 VBG O2 Sat (Rohan) VBG Base Excess Sodium Potassium Chloride Carbon Dioxide Anion Gap BUN Creatinine Estim Creat Clear Calc eGFR BUN/Creatinine Ratio Glucose Estimated Ave Glu mg/dL Hemoglobin A1c Calculated Osmolality Calcium Corrected Calcium Magnesium Total Bilirubin Direct Bilirubin AST ALT Alkaline Phosphatase Ammonia Lactate Dehydrogenase Troponin I B-Natriuretic Peptide Total Protein Albumin Globulin Albumin/Globulin Ratio Amylase Lipase TSH Ur Collection Type Urine Color Urine Clarity Urine pH Ur Specific [place] Urine Protein Urine Glucose (UA) Urine Ketones Urine Blood Urine Nitrite Urine Bilirubin Urine Urobilinogen (Auto) Ur Leukocyte Esterase Urine RBC Urine WBC Ur Squamous Epith Cells Urine Bacteria Urine HCG, Qual Stool Occult Blood Urine Opiates Screen Urine Fentanyl Screen Ur Barbiturates Screen U Amphetamin/Meth Scrn U Benzodiazepines Scrn U Cocaine Metab Screen U Marijuana (THC) Screen Ethyl Alcohol Hepatitis A IgM Ab Hep Bs Antigen Hep B Core IgM Ab Hepatitis C Antibody Blood Type Antibody Screen Antibody Identification Crossmatch Blood Bank Wristband ID 07/01/25 07/01/25 07/01/25 10:47 10:47 12:20 WBC RBC Hgb Hct MCV MCH MCHC RDW Std Deviation Plt Count Neut % (Auto) Lymph % (Auto) [place] % (Auto) Eos % (Auto) Baso % (Auto) Neut # (Auto) Lymph # (Auto) [place] # (Auto) Eos # (Auto) Baso # (Auto) Immature Gran # (Auto) Absolute Nucleated RBC Immature Gran % Cancelled Nucleated RBC % 0 Cancelled PT INR APTT VBG pH VBG pCO2 VBG pO2 VBG O2 Sat (Rohan) VBG Base Excess Sodium 130 L D Potassium Chloride Carbon Dioxide Anion Gap BUN Creatinine Estim Creat Clear Calc eGFR BUN/Creatinine Ratio Glucose Estimated Ave Glu mg/dL Hemoglobin A1c Calculated Osmolality Calcium Corrected Calcium Magnesium Total Bilirubin Direct Bilirubin AST ALT Alkaline Phosphatase Ammonia Lactate Dehydrogenase Troponin I B-Natriuretic Peptide Total Protein Albumin Globulin Albumin/Globulin Ratio Amylase Lipase TSH Ur Collection Type Urine Color Urine Clarity Urine pH Ur Specific [place] Urine Protein Urine Glucose (UA) Urine Ketones Urine Blood Urine Nitrite Urine Bilirubin Urine Urobilinogen (Auto) Ur Leukocyte Esterase Urine RBC Urine WBC Ur Squamous Epith Cells Urine Bacteria Urine HCG, Qual Stool Occult Blood Urine Opiates Screen Urine Fentanyl Screen Ur Barbiturates Screen U Amphetamin/Meth Scrn U Benzodiazepines Scrn U Cocaine Metab Screen U Marijuana (THC) Screen Ethyl Alcohol Hepatitis A IgM Ab Hep Bs Antigen Hep B Core IgM Ab Hepatitis C Antibody Blood Type Antibody Screen Antibody Identification Crossmatch Blood Bank Wristband ID ABG Interpretation ABG results: 06/30/25 18:31 VBG pH 7.50 VBG pCO2 26 L VBG pO2 47 VBG Base Excess -3 Quality Measures Quality Measures none Assessment & Plan Assessment Current Active Medications: Generic Name Dose Route Start Last Admin Trade Name Freq PRN Reason Stop Dose Admin Acetaminophen 650 mg 06/30/25 23:15 Acetaminophen 325 Mg Tablet PO 07/30/25 23:14 Q8H PRN Fever >100.3 or pain 1-3 Furosemide 20 mg 07/01/25 09:00 07/01/25 09:59 Furosemide Inj 10 Mg/Ml 4ml Vial IVP 07/31/25 08:59 20 mg QDAY CRISTOPHER Administration Heparin Sodium (Porcine) 5,000 unit 06/30/25 22:15 07/01/25 06:10 Heparin Sod Inj 5000 Unit/Ml Vial SC 07/14/25 22:14 5,000 unit Q8HR CRISTOPHER Administration Ceftriaxone Sodium/Dextrose 1 gm in 50 mls @ 100 mls/hr 07/01/25 09:00 07/01/25 09:59 Rocephin/D5w 1gm Iv Premix IV 07/08/25 08:59 100 mls/hr QDAY CRISTOPHER Administration Octreotide Acetate 1,000 mcg/ 102 mls @ 5.1 mls/hr 06/30/25 22:26 07/01/25 00:32 Sodium Chloride IV 07/01/25 18:25 50 mcg/hr .Q20H ONE 5.1 mls/hr Protocol Administration 50 MCG/HR Albumin Human 25 gm in 100 mls @ 100 mls/hr 07/01/25 08:12 07/01/25 10:19 Albuminex 25% Ivpb IV 07/31/25 08:11 Not Given QDAY CRISTOPHER Lactulose 20 gm 06/30/25 22:15 07/01/25 06:10 Lactulose Syrup 20 Gm/30 Ml Udc PO 07/30/25 22:14 20 gm TID CRISTOPHER Administration Protocol Ondansetron HCl 4 mg 06/30/25 21:59 Ondansetron Inj 2 Mg/Ml Inj 2 Ml IVP 07/30/25 21:58 Q6H PRN NAUSEA OR VOMITING Protocol Pantoprazole Sodium 40 mg 07/01/25 21:00 Pantoprazole 40 Mg Tablet PO 07/31/25 20:59 BID CRISTOPHER Protocol Rifaximin 550 mg 06/30/25 22:15 07/01/25 09:59 Rifaximin 550 Mg Tablet PO 07/07/25 22:14 550 mg BID CRISTOPHER Administration Spironolactone 100 mg 07/01/25 09:00 07/01/25 09:59 Spironolactone 25 Mg Tablet PO 07/31/25 08:59 100 mg DAILY CRISTOPHER Administration Plan Ms. Hand is a 40 y/o Romansh-speaking female with no PMHx who presents with abdominal pain, LE edema b/l and distension x4 days. Admitted for acutely decompensated ESLD, c/f GI bleed. Plan for EGD tonight. #Acute anemia 2/2 #Upper GI bleed Hemoglobin of 5.1 on admission 9.2 after 2 units of RBCs transfused. FOBT+. - Ceftriaxone 1 g IV daily for SBP prophylaxis - Pantoprazole 40 mg IV BID for GI bleed - Octreotide 50 mcg load + 50 mcg/hr gtt IV for suspected GI bleed given hgb 5.1 - Consulted GI for suspected GI bleed, appreciate recs. Plan for EGD 07/01. NPO - CTM for s/sx GI bleed, daily CBC #Acutely decompensated End-stage liver disease #Thrombocytopenia #Hyperbilirubinemia #Moderate ascites #Anasarca Initial presentation: Diffuse abdominal pain, abd distension x4 days, spider angiomata, telangiectasia, jaundice, scleral icterus, caput medusae, b/l LE edema 2+, ascites. AOx3, no asterixis. Chronic EtOH and Tylenol use. Ammonia: 50. Albumin: 2.7. Hepatitis panel: non-reactive. Kidney function: eGFR >60. Elevated AST, alk phos. ALT WNL. Synthetic liver dysfunction present (PT 15.6, INR 1.5). Abd US: Primary hepatocellular disease vs cirrhosis. CT a/p w/: cirrhosis, ascites, anasarca. Meds given in ED: Lasix 40 mg IV, Zofran 4 mg IV, KCl 40 mEq IV, Ceftriaxone 1g IV. Ordered 2U pRBC, pending transfusion. MELD-Na: 26 --> 19.6% est 3 month mortality. Child-[place]: 11 --> class C, life expectancy 1-3 years. S/p paracentesis 3.6L of fluid removed. DDX cause: GI bleed, EtOH, supratherapeutic dosing of Tylenol Plan: - Lactulose 20 mg PO TID - Lasix 40 mg IV daily - Spironolactone 100 mg PO daily - Rifaximin 550 mg PO BID - Pending lipid panel, A1C - Large volume paracentesis w/ analysis (cell count, culture, albumin, total protein, LDH) --> give albulmin 6-8 g/L removed - Paracentesis fluid analysis: - Daily weights - Transfuse pRBC if hgb <7 - Transfuse plt if plt <10 to prevent spontaneous hemorrhage - Limit Acetaminophen use <=2-3 g/day for mild 1-3 pain (650 mg PO q8h). Toradol 15 mg IV q6h PRN pain 4-7. Can do dilaudid 0.5 mg q6h if pain 8-10. Avoid NSAIDs 2/2 risk of hepatorenal syndrome. #Hypercholesterolemia #Hypertriglyceridemia T, cholesterol: 245 LDL: 196. Statin not used due to liver issues. Plan: -Consider fibrate #Normocytic normochromic anemia i/s/o acute decompensated ESLD, c/f GI bleed Pt denies melena, hematochezia, hematemesis Hgb 5.1, HCT 15.8 ED ordered 2U pRBC Plan: - Pending pRBC transfusion, post-transfusion H&H - CTM for s/sx GI bleed, daily CBC #Small left pleural effusion i/s/o ESLD Seen on CXR 06/30 spO2 appropriate on RA, no respiratory distress Plan: - Diuretics management as above #Gallbladder sludge Seen on abd US No cholelithiasis, no cholecystitis Plan: - CTM for worsening abd pain #Hyponatremia i/s/o ESLD Na 120 Plan: - Diuretics management as above #EtOH use disorder Drinks 3 beers [place]ster Light (normal sized cans) per day, EtOH use exacerbated by recent of her baby Plan: - Will need nephrology social worker referral - Counseled patient on EtOH cessation Checklist Dispo: Admit to tele, pending EGD 07/01 Diet: Clears Bowel Reg: lactulose 20 g PO TID VTE ppx: heparin subQ (plt 102) GI ppx: Pantoprazole 40 mg IV Pain mgmt: Limit Acetaminophen use <=2-3 g/day for mild 1-3 pain (650 mg PO q8h). Toradol 15 mg IV q6h PRN pain 4-7. Can do dilaudid 0.5 mg q6h if pain 8- 10. Code status: Full Plan discussed with Dr. Bond and Dr. Temo Murry MD PGY1
[2025-07-01 13:41] LABS: Alanine Aminotransferase 14 U/L (10-49); Albumin, Serum 2.8 gm/dL (3.5-5.0); Albumin/Globulin Ratio 0.7 (1.2-2.2); Alkaline Phosphatase 189 U/L (46-116); Anion Gap 14 (7-16); Aspartate Amino Transferase 125 U/L (0-34); BUN/Creatinine Ratio 10 Ratio (12-20); Bilirubin,Total 6.0 mg/dL (0.3-1.2); Blood Urea Nitrogen 8 mg/dL (9-23); Calcium 7.9 mg/dL (8.3-10.6); Calcium (Corrected) 8.9 mg/dL (8.5-10.1); Carbon Dioxide 22.4 mMol/L (20.0-31.0); Cardiac Risk Estimate 24.5 RATIO (3.7-5.6); Chloride 91 mMol/L (98-107); Cholesterol 245 mg/dL (132-200); Creatinine (Component) 0.8 mg/dL (0.6-1.3); Estimated Creatinine Clearance 74.7 mL/min (>60); Globulin 3.8 gm/dL (2.3-3.5); Glucose 199 mg/dL (74-106); HDL Cholesterol 10 mg/dL (40-60); LDL Cholesterol,Calculated 196 mg/dL (0-130); Magnesium 1.7 mg/dL (1.6-2.6); Osmolality,Calculated 259 (275-295); Phosphorous 3.1 mg/dL (2.4-5.1); Potassium 3.0 mMol/L (3.4-5.1); Sodium 127 mMol/L (136-145); Total Protein 6.6 gm/dL (5.7-8.2); Triglycerides 195 mg/dL (30-150); eGFR > 60 See Note
--- NOTE | 2025-07-01 14:16 | PC.PT ---
PT eval only. Patient is I with transfers and ambulation without AD.
[2025-07-01] MEDS: POTASSIUM CHLORIDE 10% 20 MEQ/15 ML UDC 40 MEQ PO (16:16)
[2025-07-01] MEDS: FUROSEMIDE INJ 10 MG/ML VIAL 2 ML 20 MG IVP (16:17)
[2025-07-01 16:54] LABS: Sodium 130 mMol/L (136-145)
--- NOTE | 2025-07-01 19:37 | SUR.PHASEI ---
pt received from OR in recovery bay 1. pt asleep but responds to voice, breathing unlabored on room air. v/s stable. report received from Rachel Martinez.
--- NOTE | 2025-07-01 20:12 | SUR.PHASEI ---
pt asleep but responds to voice, breathing unlabored on nc 1l. v/s stable. report called to Bev ZAMORA. pt will be transferred to room at this time.
[2025-07-01] MEDS: PANTOPRAZOLE 40 MG TABLET PO (20:45)
[2025-07-01] MEDS: SUCRALFATE SUSP 1 GM/10 ML UDC PO (20:45)
[2025-07-01] MEDS: MG HYD/AL HYD/SIME (Maalox Reg) SUSP 30 ML UDC PO (20:47)
--- NOTE | 2025-07-01 22:58 | PC.NURSE ---
Notified Dr Landry regarding patient acute disorientation to reality, multiple attempts to get out of bed despite fall risk precautions, Patient is orientated to name and , however thinks that she needs to go to another floor. VS are WNL, BS 140, MD aware of situation, AVASURE Monitoring is started for this patient, care is continued.
[2025-07-01 23:56] LABS: Influenza A Ag Negative; Influenza B Ag Negative
[2025-07-02] VITALS (8 sets, daily range): BP systolic 101–123; BP diastolic 55–77; PULSE 53–100; RESP 15–18; TEMP 36.1–36.6; O2SAT 95–100; BMI 23.2
[2025-07-02] MEDS: MG HYD/AL HYD/SIME (Maalox Reg) SUSP 30 ML UDC PO ×6 (03:00→21:12)
[2025-07-02] MEDS: LACTULOSE SYRUP 20 GM/30 ML UDC PO ×3 (04:54→21:12)
[2025-07-02] MEDS: HEPARIN SOD INJ 5000 UNIT/ML VIAL SC ×3 (04:54→21:13)
[2025-07-02] MEDS: SUCRALFATE SUSP 1 GM/10 ML UDC PO ×4 (04:54→21:12)
[2025-07-02 06:31] LABS: Basophils # (Auto) 0.1 Thou/mm3 (0.0-0.2); Basophils % (Auto) 1 % (0-2.5); Eosinophils # (Auto) 0.3 Thou/mm3 (0.0-0.5); Eosinophils % (Auto) 3 % (0-10); Hematocrit 28.3 % (36.0-46.0); Hemoglobin 9.5 g/dL (12.0-16.0); Immature Granulocytes Auto 0.04 Thou/mm3 (0.00-0.00); Lymphocytes # (Auto) 1.4 Thou/mm3 (1.0-4.8); Lymphocytes % (Auto) 15 % (10-50); Mean Corpuscular HGB Conc 33.6 g/dl (31.0-37.0); Mean Corpuscular Hemoglobin 27.9 pg (25.0-35.0); Mean Corpuscular Volume 83 fL (80-100); Monocytes # (Auto) 1.4 Thou/mm3 (0.0-0.8); Monocytes % (Auto) 15 % (0-12); Neutrophils # (Auto) 6.1 Thou/mm3 (1.8-7.7); Neutrophils % (Auto) 66 % (37-80); Nucleated Red Blood Cell # 0.00 Thou/mm3 (0.00-0.00); Nucleated Red Blood Cell % 0 /100 WBC (0); Platelet Count 105 Thou/mm3 (140-440); RDW Standard Deviation 51.0 fL (36.4-46.3); Red Blood Count 3.41 Miln/mm3 (4.00-5.20); White Blood Count 9.2 Thou/mm3 (3.6-11.0)
[2025-07-02 06:49] LABS: Alanine Aminotransferase 16 U/L (10-49); Albumin, Serum 2.6 gm/dL (3.5-5.0); Albumin/Globulin Ratio 0.7 (1.2-2.2); Alkaline Phosphatase 153 U/L (46-116); Anion Gap 9 (7-16); Aspartate Amino Transferase 128 U/L (0-34); BUN/Creatinine Ratio 8 Ratio (12-20); Bilirubin,Total 6.1 mg/dL (0.3-1.2); Blood Urea Nitrogen 6 mg/dL (9-23); Calcium 8.4 mg/dL (8.3-10.6); Calcium (Corrected) 9.5 mg/dL (8.5-10.1); Carbon Dioxide 27.6 mMol/L (20.0-31.0); Chloride 97 mMol/L (98-107); Creatinine (Component) 0.8 mg/dL (0.6-1.3); Estimated Creatinine Clearance 74.7 mL/min (>60); Globulin 3.7 gm/dL (2.3-3.5); Glucose 106 mg/dL (74-106); Glucose Estimated Average 80 mg/dL (80-131); Hemoglobin A1C 4.4 % Hgb (4.8-6.0); Magnesium 1.4 mg/dL (1.6-2.6); Osmolality,Calculated 265 (275-295); Phosphorous 2.6 mg/dL (2.4-5.1); Sodium 134 mMol/L (136-145); Total Protein 6.3 gm/dL (5.7-8.2); eGFR > 60 See Note
[2025-07-02 06:53] LABS: Potassium 2.7 mMol/L (3.4-5.1)
[2025-07-02 07:07] LABS: Chloride,Urine Random 48.7 mMol/L (55.0-125.0); Creatinine,Random Urine 50 mg/dL (30-125); Potassium,Urine Random 18 mMol/L (12-62); Sodium,Urine Random 30.0 mMol/L (20.0-110.0)
--- NOTE | 2025-07-02 08:22 | ESPR_ITS ---
<Statement entered by Phil Plascencia MD - 07/16/25 17:16> I reviewed above note and agree with findings and plans. I have also personally examined the patient with medicine team and went over assessment and plan with medical team including production intern and resident physician. <Statement entered by Adrián Bond MD - 07/03/25 07:14> I saw and examined patient personally and supervised PGY 1 resident, Dr. Adair with formulating a management plan. I agree with the documentation with the exceptions as listed below. Patient underwent EGD on 07/01 with revealed grade 1 esophageal varices, not large enough for banding and extensive gastric ulcer antrum. Patient was started on Carafate by gastroenterology. Will continue on octreotide infusion to complete a total of 5 days. This a.m. patient appeared confused alert and oriented to person and place. She had 3 bowel movements in past 24 hours, will continue same dose of lactulose 20 mg p.o. 3 times daily and start rifaximin 550 mg p.o. twice daily. Plan of care discussed with Attending Dr. Temo Bond MD PGY 2 Disclaimer: This note was dictated by speech recognition. Minor errors in buy boat operator may be present due to voice recognition software. Documentation for date of: 07/02/25 Subjective Subjective Interval history: NAEON labs reviewed notable for Hbg 9.5 up from 9.2, K 2.7 given 80 mEq of potassium split 40mEq oral liquid and 40 mEq IV KCl, T Bili 6.1 up from 6.0, AST 128, ALT 16, and ALP 153. EGD shows Grade I esophageal varices and nonbleeding cratered gastric ulcer (Class III). I was not able to interview on bedside this morning due to hospital staff changing linens. During IM Team Rounds, patient appeared socially withdrawn, says few words, and daughter at bedside. Alcohol cessation was extensively talked with patient. Exam Vital Signs Temp Pulse Resp BP Pulse Ox O2 Del Method O2 Flow Rate 97.4 F 71 18 119/66 100 Room Air 1 07/02/25 04:00 07/02/25 04:00 07/02/25 04:00 07/02/25 04:00 07/02/25 04:00 07/02/25 04:00 07/01/25 20:10 Narrative Exam General: Lying in bed comfortable NAD Eye: PERRL, EOMI, sleral icterus HENT: Normocephalic, atraumatic, normal hearing, moist oral mucosa Neck: Supple, non-tender, no JVD, no lymphadenopathy Lungs: Clear to auscultation bilaterally, non-labored respirations, symmetric chest rise, no use of accessory muscles Heart: Normal S1 and S2, no S3 or S4 appreciated. Normal rate and regular rhythm, no murmurs, rubs gallops. 2+ b/l LE edema Abdomen: Distended, diffusely TTP in all quadrants Musculoskeletal: Normal range of motion and strength Skin: Telangiectasia present on right collarbone, spider angiomata, caput medusae Neurologic: Alert, awake and oriented x3. CN II-XII grossly intact. No focal neuro deficits. No asterixis Psychiatric: Cooperative mood is ok , affect seems restricted Objective Labs 07/02/25 05:24 07/02/25 13:49 Labs: Laboratory Results - last 24 hr 06/30/25 07/01/25 07/01/25 15:47 06:49 10:47 WBC 8.6 RBC Hgb Hct MCV MCH MCHC RDW Std Deviation Plt Count Neut % (Auto) Lymph % (Auto) George % (Auto) Eos % (Auto) Baso % (Auto) Neut # (Auto) Lymph # (Auto) George # (Auto) Eos # (Auto) Baso # (Auto) Immature Gran # (Auto) Absolute Nucleated RBC Immature Gran % Nucleated RBC % Sodium Potassium Chloride Carbon Dioxide Anion Gap BUN Creatinine Estim Creat Clear Calc eGFR BUN/Creatinine Ratio Glucose Estimated Ave Glu mg/dL Hemoglobin A1c Calculated Osmolality Calcium Corrected Calcium Phosphorus Magnesium Total Bilirubin AST ALT Alkaline Phosphatase Total Protein Albumin Globulin Albumin/Globulin Ratio Triglycerides Cholesterol LDL Cholesterol, Calc HDL Cholesterol Cholesterol/HDL Ratio Ur Random Creatinine Ur Random Sodium Ur Random Potassium Ur Random Chloride Stool Occult Blood Positive A Influenza A (Rapid) Influenza B (Rapid) Crossmatch See Detail 07/01/25 07/01/25 07/01/25 10:47 10:47 10:47 WBC Cancelled RBC 3.32 L Cancelled Hgb 9.2 L D Cancelled Hct 27.6 L D MCV MCH MCHC RDW Std Deviation Plt Count Neut % (Auto) Lymph % (Auto) George % (Auto) Eos % (Auto) Baso % (Auto) Neut # (Auto) Lymph # (Auto) George # (Auto) Eos # (Auto) Baso # (Auto) Immature Gran # (Auto) Absolute Nucleated RBC Immature Gran % Nucleated RBC % Sodium Potassium Chloride Carbon Dioxide Anion Gap BUN Creatinine Estim Creat Clear Calc eGFR BUN/Creatinine Ratio Glucose Estimated Ave Glu mg/dL Hemoglobin A1c Calculated Osmolality Calcium Corrected Calcium Phosphorus Magnesium Total Bilirubin AST ALT Alkaline Phosphatase Total Protein Albumin Globulin Albumin/Globulin Ratio Triglycerides Cholesterol LDL Cholesterol, Calc HDL Cholesterol Cholesterol/HDL Ratio Ur Random Creatinine Ur Random Sodium Ur Random Potassium Ur Random Chloride Stool Occult Blood Influenza A (Rapid) Influenza B (Rapid) Crossmatch 07/01/25 07/01/25 07/01/25 10:47 10:47 10:47 WBC RBC Hgb Hct Cancelled MCV 83 Cancelled MCH 27.7 Cancelled MCHC 33.3 RDW Std Deviation Plt Count Neut % (Auto) Lymph % (Auto) George % (Auto) Eos % (Auto) Baso % (Auto) Neut # (Auto) Lymph # (Auto) George # (Auto) Eos # (Auto) Baso # (Auto) Immature Gran # (Auto) Absolute Nucleated RBC Immature Gran % Nucleated RBC % Sodium Potassium Chloride Carbon Dioxide Anion Gap BUN Creatinine Estim Creat Clear Calc eGFR BUN/Creatinine Ratio Glucose Estimated Ave Glu mg/dL Hemoglobin A1c Calculated Osmolality Calcium Corrected Calcium Phosphorus Magnesium Total Bilirubin AST ALT Alkaline Phosphatase Total Protein Albumin Globulin Albumin/Globulin Ratio Triglycerides Cholesterol LDL Cholesterol, Calc HDL Cholesterol Cholesterol/HDL Ratio Ur Random Creatinine Ur Random Sodium Ur Random Potassium Ur Random Chloride Stool Occult Blood Influenza A (Rapid) Influenza B (Rapid) Crossmatch 07/01/25 07/01/25 07/01/25 10:47 10:47 10:47 WBC RBC Hgb Hct MCV MCH MCHC Cancelled RDW Std Deviation 51.9 H Cancelled Plt Count 88 L Cancelled Neut % (Auto) 79 Lymph % (Auto) George % (Auto) Eos % (Auto) Baso % (Auto) Neut # (Auto) Lymph # (Auto) George # (Auto) Eos # (Auto) Baso # (Auto) Immature Gran # (Auto) Absolute Nucleated RBC Immature Gran % Nucleated RBC % Sodium Potassium Chloride Carbon Dioxide Anion Gap BUN Creatinine Estim Creat Clear Calc eGFR BUN/Creatinine Ratio Glucose Estimated Ave Glu mg/dL Hemoglobin A1c Calculated Osmolality Calcium Corrected Calcium Phosphorus Magnesium Total Bilirubin AST ALT Alkaline Phosphatase Total Protein Albumin Globulin Albumin/Globulin Ratio Triglycerides Cholesterol LDL Cholesterol, Calc HDL Cholesterol Cholesterol/HDL Ratio Ur Random Creatinine Ur Random Sodium Ur Random Potassium Ur Random Chloride Stool Occult Blood Influenza A (Rapid) Influenza B (Rapid) Crossmatch 07/01/25 07/01/25 07/01/25 10:47 10:47 10:47 WBC RBC Hgb Hct MCV MCH MCHC RDW Std Deviation Plt Count Neut % (Auto) Cancelled Lymph % (Auto) 8 L Cancelled George % (Auto) 11 Cancelled Eos % (Auto) 1 Baso % (Auto) Neut # (Auto) Lymph # (Auto) George # (Auto) Eos # (Auto) Baso # (Auto) Immature Gran # (Auto) Absolute Nucleated RBC Immature Gran % Nucleated RBC % Sodium Potassium Chloride Carbon Dioxide Anion Gap BUN Creatinine Estim Creat Clear Calc eGFR BUN/Creatinine Ratio Glucose Estimated Ave Glu mg/dL Hemoglobin A1c Calculated Osmolality Calcium Corrected Calcium Phosphorus Magnesium Total Bilirubin AST ALT Alkaline Phosphatase Total Protein Albumin Globulin Albumin/Globulin Ratio Triglycerides Cholesterol LDL Cholesterol, Calc HDL Cholesterol Cholesterol/HDL Ratio Ur Random Creatinine Ur Random Sodium Ur Random Potassium Ur Random Chloride Stool Occult Blood Influenza A (Rapid) Influenza B (Rapid) Crossmatch 07/01/25 07/01/25 07/01/25 10:47 10:47 10:47 WBC RBC Hgb Hct MCV MCH MCHC RDW Std Deviation Plt Count Neut % (Auto) Lymph % (Auto) George % (Auto) Eos % (Auto) Cancelled Baso % (Auto) 0 Cancelled Neut # (Auto) 6.8 Cancelled Lymph # (Auto) 0.7 L George # (Auto) Eos # (Auto) Baso # (Auto) Immature Gran # (Auto) Absolute Nucleated RBC Immature Gran % Nucleated RBC % Sodium Potassium Chloride Carbon Dioxide Anion Gap BUN Creatinine Estim Creat Clear Calc eGFR BUN/Creatinine Ratio Glucose Estimated Ave Glu mg/dL Hemoglobin A1c Calculated Osmolality Calcium Corrected Calcium Phosphorus Magnesium Total Bilirubin AST ALT Alkaline Phosphatase Total Protein Albumin Globulin Albumin/Globulin Ratio Triglycerides Cholesterol LDL Cholesterol, Calc HDL Cholesterol Cholesterol/HDL Ratio Ur Random Creatinine Ur Random Sodium Ur Random Potassium Ur Random Chloride Stool Occult Blood Influenza A (Rapid) Influenza B (Rapid) Crossmatch 07/01/25 07/01/25 07/01/25 10:47 10:47 10:47 WBC RBC Hgb Hct MCV MCH MCHC RDW Std Deviation Plt Count Neut % (Auto) Lymph % (Auto) George % (Auto) Eos % (Auto) Baso % (Auto) Neut # (Auto) Lymph # (Auto) Cancelled George # (Auto) 1.0 H Cancelled Eos # (Auto) 0.1 Cancelled Baso # (Auto) 0.0 Immature Gran # (Auto) Absolute Nucleated RBC Immature Gran % Nucleated RBC % Sodium Potassium Chloride Carbon Dioxide Anion Gap BUN Creatinine Estim Creat Clear Calc eGFR BUN/Creatinine Ratio Glucose Estimated Ave Glu mg/dL Hemoglobin A1c Calculated Osmolality Calcium Corrected Calcium Phosphorus Magnesium Total Bilirubin AST ALT Alkaline Phosphatase Total Protein Albumin Globulin Albumin/Globulin Ratio Triglycerides Cholesterol LDL Cholesterol, Calc HDL Cholesterol Cholesterol/HDL Ratio Ur Random Creatinine Ur Random Sodium Ur Random Potassium Ur Random Chloride Stool Occult Blood Influenza A (Rapid) Influenza B (Rapid) Crossmatch 07/01/25 07/01/25 07/01/25 10:47 10:47 10:47 WBC RBC Hgb Hct MCV MCH MCHC RDW Std Deviation Plt Count Neut % (Auto) Lymph % (Auto) George % (Auto) Eos % (Auto) Baso % (Auto) Neut # (Auto) Lymph # (Auto) George # (Auto) Eos # (Auto) Baso # (Auto) Cancelled Immature Gran # (Auto) 0.05 H Cancelled Absolute Nucleated RBC 0.00 Cancelled Immature Gran % 1 H Nucleated RBC % Sodium Potassium Chloride Carbon Dioxide Anion Gap BUN Creatinine Estim Creat Clear Calc eGFR BUN/Creatinine Ratio Glucose Estimated Ave Glu mg/dL Hemoglobin A1c Calculated Osmolality Calcium Corrected Calcium Phosphorus Magnesium Total Bilirubin AST ALT Alkaline Phosphatase Total Protein Albumin Globulin Albumin/Globulin Ratio Triglycerides Cholesterol LDL Cholesterol, Calc HDL Cholesterol Cholesterol/HDL Ratio Ur Random Creatinine Ur Random Sodium Ur Random Potassium Ur Random Chloride Stool Occult Blood Influenza A (Rapid) Influenza B (Rapid) Crossmatch 07/01/25 07/01/25 07/01/25 10:47 10:47 12:20 WBC RBC Hgb Hct MCV MCH MCHC RDW Std Deviation Plt Count Neut % (Auto) Lymph % (Auto) George % (Auto) Eos % (Auto) Baso % (Auto) Neut # (Auto) Lymph # (Auto) George # (Auto) Eos # (Auto) Baso # (Auto) Immature Gran # (Auto) Absolute Nucleated RBC Immature Gran % Cancelled Nucleated RBC % 0 Cancelled Sodium 127 L 130 L Potassium 3.0 L Chloride 91 L Carbon Dioxide 22.4 Anion Gap 14 BUN 8 L Creatinine 0.8 Estim Creat Clear Calc 74.7 eGFR > 60 BUN/Creatinine Ratio 10 L Glucose [address] Glu mg/dL Hemoglobin A1c Calculated Osmolality 259 L Calcium 7.9 L Corrected Calcium 8.9 Phosphorus 3.1 Magnesium 1.7 Total Bilirubin 6.0 H D AST 125 H ALT 14 Alkaline Phosphatase 189 H Total Protein 6.6 Albumin 2.8 L Globulin 3.8 H Albumin/Globulin Ratio 0.7 L Triglycerides 195 H Cholesterol 245 H LDL Cholesterol, Calc 196 H HDL Cholesterol 10 L Cholesterol/HDL Ratio 24.5 H Ur Random Creatinine Ur Random Sodium Ur Random Potassium Ur Random Chloride Stool Occult Blood Influenza A (Rapid) Influenza B (Rapid) Crossmatch 07/01/25 07/01/25 07/02/25 16:30 23:00 03:30 WBC RBC Hgb Hct MCV MCH MCHC RDW Std Deviation Plt Count Neut % (Auto) Lymph % (Auto) George % (Auto) Eos % (Auto) Baso % (Auto) Neut # (Auto) Lymph # (Auto) George # (Auto) Eos # (Auto) Baso # (Auto) Immature Gran # (Auto) Absolute Nucleated RBC Immature Gran % Nucleated RBC % Sodium 130 L Potassium Chloride Carbon Dioxide Anion Gap BUN Creatinine Estim Creat Clear Calc eGFR BUN/Creatinine Ratio Glucose Estimated Ave Glu mg/dL Hemoglobin A1c Calculated Osmolality Calcium Corrected Calcium Phosphorus Magnesium Total Bilirubin AST ALT Alkaline Phosphatase Total Protein Albumin Globulin Albumin/Globulin Ratio Triglycerides Cholesterol LDL Cholesterol, Calc HDL Cholesterol Cholesterol/HDL Ratio Ur Random Creatinine 50 Ur Random Sodium 30.0 Ur Random Potassium 18 Ur Random Chloride 48.7 L Stool Occult Blood Influenza A (Rapid) Negative Influenza B (Rapid) Negative Crossmatch 07/02/25 05:24 WBC 9.2 RBC 3.41 L Hgb 9.5 L Hct 28.3 L MCV 83 MCH 27.9 MCHC 33.6 RDW Std Deviation 51.0 H Plt Count 105 L Neut % (Auto) 66 Lymph % (Auto) 15 George % (Auto) 15 H Eos % (Auto) 3 Baso % (Auto) 1 Neut # (Auto) 6.1 Lymph # (Auto) 1.4 George # (Auto) 1.4 H Eos # (Auto) 0.3 Baso # (Auto) 0.1 Immature Gran # (Auto) 0.04 H Absolute Nucleated RBC 0.00 Immature Gran % 0 Nucleated RBC % 0 Sodium 134 L Potassium 2.7 L* Chloride 97 L Carbon Dioxide 27.6 Anion Gap 9 BUN 6 L Creatinine 0.8 Estim Creat Clear Calc 74.7 eGFR > 60 BUN/Creatinine Ratio 8 L Glucose [address] Glu mg/dL 80 Hemoglobin A1c 4.4 L Calculated Osmolality 265 L Calcium 8.4 Corrected Calcium 9.5 Phosphorus 2.6 Magnesium 1.4 L Total Bilirubin 6.1 H AST 128 H ALT 16 Alkaline Phosphatase 153 H D Total Protein 6.3 Albumin 2.6 L Globulin 3.7 H Albumin/Globulin Ratio 0.7 L Triglycerides Cholesterol LDL Cholesterol, Calc HDL Cholesterol Cholesterol/HDL Ratio Ur Random Creatinine Ur Random Sodium Ur Random Potassium Ur Random Chloride Stool Occult Blood Influenza A (Rapid) Influenza B (Rapid) Crossmatch ABG Interpretation ABG results: 06/30/25 18:31 VBG pH 7.50 VBG pCO2 26 L VBG pO2 47 VBG Base Excess -3 Quality Measures Quality Measures none Assessment & Plan Assessment Current Active Medications: Generic Name Dose Route Start Last Admin Trade Name Freq PRN Reason Stop Dose Admin Acetaminophen 650 mg 06/30/25 23:15 Acetaminophen 325 Mg Tablet PO 07/30/25 23:14 Q8H PRN Fever >100.3 or pain 1-3 Al Hydrox/Mg Hydrox/Simethicone 30 ml 07/01/25 22:00 07/02/25 04:54 Mg Hyd/Al Hyd/Will (Maalox Reg) Susp 30 Ml Udc PO 07/31/25 21:59 30 ml Q4HR CRISTOPHER Administration Furosemide 20 mg 07/01/25 09:00 07/01/25 09:59 Furosemide Inj 10 Mg/Ml 4ml Vial IVP 07/31/25 08:59 20 mg QDAY CRISTOPHER Administration Heparin Sodium (Porcine) 5,000 unit 06/30/25 22:15 07/02/25 04:54 Heparin Sod Inj 5000 Unit/Ml Vial SC 07/14/25 22:14 5,000 unit Q8HR CRISTOPHER Administration Ceftriaxone Sodium/Dextrose 1 gm in 50 mls @ 100 mls/hr 07/01/25 09:00 07/01/25 10:29 Rocephin/D5w 1gm Iv Premix IV 07/08/25 08:59 Infused QDAY CRISTOPHER Infusion Albumin Human 25 gm in 100 mls @ 100 mls/hr 07/01/25 08:12 07/01/25 10:58 Albuminex 25% Ivpb IV 07/31/25 08:11 Infused QDAY CRISTOPHER Infusion Octreotide Acetate 1,000 mcg/ 102 mls @ 5.1 mls/hr 07/01/25 19:31 07/01/25 20:44 Sodium Chloride IV 07/06/25 19:31 50 mcg/hr .Q20H CRISTOPHER 5.1 mls/hr Protocol Administration 50 MCG/HR Potassium Chloride 10 meq in 100 mls @ 100 mls/hr 07/02/25 08:06 Kcl Ivpb IV 07/02/25 12:05 Q1H CRISTOPHER Magnesium Sulfate 4 gm in 50 mls @ 12.5 mls/hr 07/02/25 08:07 Magnesium Sulfate Ivpb IV 07/02/25 12:06 X1 ONE Lactulose 20 gm 06/30/25 22:15 07/02/25 04:54 Lactulose Syrup 20 Gm/30 Ml Udc PO 07/30/25 22:14 20 gm TID CRISTOPHER Administration Protocol Ondansetron HCl 4 mg 06/30/25 21:59 Ondansetron Inj 2 Mg/Ml Inj 2 Ml IVP 07/30/25 21:58 Q6H PRN NAUSEA OR VOMITING Protocol Pantoprazole Sodium 40 mg 07/01/25 21:00 07/01/25 20:45 Pantoprazole 40 Mg Tablet PO 07/31/25 20:59 40 mg BID CRISTOPHER Administration Protocol Spironolactone 100 mg 07/01/25 09:00 07/01/25 09:59 Spironolactone 25 Mg Tablet PO 07/31/25 08:59 100 mg DAILY CRISTOPHER Administration Sucralfate 1 gm 07/01/25 21:00 07/02/25 04:54 Sucralfate Susp 1 Gm/10 Ml Udc PO 07/31/25 20:59 1 gm QID CRISTOPHER Administration Plan Ms. Hand is a 40 y/o Mohawk-speaking female with no PMHx who presents with abdominal pain, LE edema b/l and distension x4 days. Admitted for acutely decompensated ESLD, c/f GI bleed. #Acute anemia 2/2 #Upper GI bleed #Esophageal varices Grade I #Gastric ulcer, nonbleeding Ricardo Class III Hemoglobin of 5.1 on admission 9.2 after 2 units of RBCs transfused. FOBT+. EGD shows Grade I esophageal varices and nonbleeding cratered gastric ulcer (Class III). - Ceftriaxone 1 g IV daily for SBP prophylaxis - Pantoprazole 40 mg IV BID for GI bleed - Octreotide 50 mcg load + 50 mcg/hr gtt IV for suspected GI bleed given Hgb 5.1 - GI consulted completed EGD 07/01 - CTM for s/sx GI bleed, daily CBC #Acutely decompensated End-stage liver disease #Thrombocytopenia #Hyperbilirubinemia #Moderate ascites #Anasarca Initial presentation: Diffuse abdominal pain, abd distension x4 days, spider angiomata, telangiectasia, jaundice, scleral icterus, caput medusae, b/l LE edema 2+, ascites. AOx3, no asterixis. Chronic EtOH and Tylenol use. Ammonia: 50. Albumin: 2.7. Hepatitis panel: non-reactive. Kidney function: eGFR >60. Elevated AST, alk phos. ALT WNL. Synthetic liver dysfunction present (PT 15.6, INR 1.5). Abd US: Primary hepatocellular disease vs cirrhosis. CT a/p w/: cirrhosis, ascites, anasarca. Meds given in ED: Lasix 40 mg IV, Zofran 4 mg IV, KCl 40 mEq IV, Ceftriaxone 1g IV. Ordered 2U pRBC, pending transfusion. MELD-Na: 26 --> 19.6% est 3 month mortality. Child-Marshall: 11 --> class C, life expectancy 1-3 years. S/p paracentesis 3.6L of fluid removed. DDX cause: GI bleed, EtOH, supratherapeutic dosing of Tylenol Plan: - Lactulose 20 mg PO TID - Lasix 40 mg IV daily - Spironolactone 100 mg PO daily - Rifaximin 550 mg PO BID - Hbg A1c: 4.4; pending lipid panel - Large volume paracentesis yielded 3.6 L - Paracentesis fluid analysis: not viable for analysis - Daily weights - Transfuse pRBC if hgb <7 - Transfuse plt if plt <10 to prevent spontaneous hemorrhage - Limit Acetaminophen use <=2-3 g/day for mild 1-3 pain (650 mg PO q8h). Toradol 15 mg IV q6h PRN pain 4-7. Can do dilaudid 0.5 mg q6h if pain 8-10. Avoid NSAIDs 2/2 risk of hepatorenal syndrome. #Hypercholesterolemia #Hypertriglyceridemia T, cholesterol: 245 LDL: 196. Statin not used due to liver issues. Plan: -Consider fibrate #Normocytic normochromic anemia i/s/o acute decompensated ESLD, c/f GI bleed Pt denies melena, hematochezia, hematemesis In ED, pRBC transfusion, post-transfusion H&H Current: Hgb 9.5, HCT 28.3 Plan: - CTM for s/sx GI bleed, daily CBC #Small left pleural effusion i/s/o ESLD Seen on CXR 06/30 spO2 appropriate on RA, no respiratory distress Plan: - Diuretics management as above #Gallbladder sludge Seen on abd US No cholelithiasis, no cholecystitis Plan: - CTM for worsening abd pain #Hyponatremia, improved i/s/o ESLD Na 120 --> 134 Plan: - Diuretics management as above #EtOH use disorder Drinks 3 beers [place] Light (normal sized cans) per day, EtOH use exacerbated by recent of her baby Plan: - Will need social services director referral - Counseled patient on EtOH cessation extensively Checklist Dispo: Tele, pending discharge Diet: Clears Bowel Reg: lactulose 20 g PO TID VTE ppx: heparin subQ (plt 102) GI ppx: Pantoprazole 40 mg IV Pain mgmt: Limit Acetaminophen use <=2-3 g/day for mild 1-3 pain (650 mg PO q8h). Toradol 15 mg IV q6h PRN pain 4-7. Can do dilaudid 0.5 mg q6h if pain 8- 10. Code status: Full Case was discussed with Attending Dr. Plascencia, and Senior Resident Dr. Ronda Adair, DO PGY-1
[2025-07-02] MEDS: SPIRONOLACTONE 25 MG TABLET 100 MG PO (09:53)
[2025-07-02] MEDS: PANTOPRAZOLE 40 MG TABLET PO ×2 (09:53→21:12)
[2025-07-02] MEDS: FUROSEMIDE INJ 10 MG/ML 4ML VIAL 20 MG IVP (09:53)
[2025-07-02] MEDS: cefTRIAXone/D5w 1gm IV premix 1 GM/50 ML BAG IV (09:53)
[2025-07-02] MEDS: ALBUMIN HUMAN-KJDA 25% IVPB 25 GM/100 ML BTL IV (09:53)
[2025-07-02] MEDS: POTASSIUM CHL 10 mEq IVPB 10 MEQ/100 ML BAG 50 MEQ IV ×4 (09:53→18:18)
[2025-07-02] MEDS: Magnesium Sulfate 4 GM Ivpb 4 GM/50 ML BAG IV (10:15)
--- NOTE | 2025-07-02 10:44 | PC.SS ---
Update; Electrolytes being monitored. Patient will discharge back home when medically cleared.
[2025-07-02] MEDS: POTASSIUM CHLORIDE 10% 20 MEQ/15 ML UDC 40 MEQ PO (11:27)
[2025-07-02] MEDS: OCTREOTIDE ACET INJ 1,000 MCG in SODIUM CHLORIDE 0.9% 100 ML 5.1 MCG IV (14:27)
[2025-07-02 14:34] LABS: Albumin, Serum 3.1 gm/dL (3.5-5.0); Anion Gap 12 (7-16); BUN/Creatinine Ratio 8 Ratio (12-20); Blood Urea Nitrogen 6 mg/dL (9-23); Calcium 8.5 mg/dL (8.3-10.6); Calcium (Corrected) 9.2 mg/dL (8.5-10.1); Carbon Dioxide 24.4 mMol/L (20.0-31.0); Chloride 99 mMol/L (98-107); Creatinine (Component) 0.8 mg/dL (0.6-1.3); Estimated Creatinine Clearance 74.7 mL/min (>60); Glucose 130 mg/dL (74-106); Osmolality,Calculated 269 (275-295); Phosphorous 2.1 mg/dL (2.4-5.1); Potassium 3.5 mMol/L (3.4-5.1); Sodium 135 mMol/L (136-145); eGFR > 60 See Note
--- NOTE | 2025-07-02 18:12 | ESPR_ITS ---
Documentation for date of: 07/02/25 Subjective Subjective Interval history: Hemoglobin hematocrit 9.5 and 28.3 Upper endoscopy showed large gastric ulcer in the region of the antrum and pylorus circumferential No biopsies were taken for fear of bleeding Exam Vital Signs Temp Pulse Resp BP Pulse Ox O2 Del Method O2 Flow Rate 97.8 F 57 L 17 118/77 100 Room Air 1 07/02/25 11:54 07/02/25 16:00 07/02/25 11:54 07/02/25 11:54 07/02/25 11:54 07/02/25 11:54 07/01/25 20:10 Constitutional Comments: Alert oriented Routine Respiratory Exam Comments: Normal to auscultation Routine Abdominal Exam Comments: Soft positive ascites positive bowel sounds Objective Labs 07/02/25 05:24 07/02/25 13:49 Labs: Laboratory Results - last 24 hr 07/01/25 07/02/25 07/02/25 23:00 03:30 05:24 WBC 9.2 RBC 3.41 L Hgb 9.5 L Hct 28.3 L MCV 83 MCH 27.9 MCHC 33.6 RDW Std Deviation 51.0 H Plt Count 105 L Neut % (Auto) 66 Lymph % (Auto) 15 Stephenson % (Auto) 15 H Eos % (Auto) 3 Baso % (Auto) 1 Neut # (Auto) 6.1 Lymph # (Auto) 1.4 Stephenson # (Auto) 1.4 H Eos # (Auto) 0.3 Baso # (Auto) 0.1 Immature Gran # (Auto) 0.04 H Absolute Nucleated RBC 0.00 Immature Gran % 0 Nucleated RBC % 0 Sodium 134 L Potassium 2.7 L* Chloride 97 L Carbon Dioxide 27.6 Anion Gap 9 BUN 6 L Creatinine 0.8 Estim Creat Clear Calc 74.7 eGFR > 60 BUN/Creatinine Ratio 8 L Glucose [address] Glu mg/dL 80 Hemoglobin A1c 4.4 L Calculated Osmolality 265 L Calcium 8.4 Corrected Calcium 9.5 Phosphorus 2.6 Magnesium 1.4 L Total Bilirubin 6.1 H AST 128 H ALT 16 Alkaline Phosphatase 153 H D Total Protein 6.3 Albumin 2.6 L Globulin 3.7 H Albumin/Globulin Ratio 0.7 L Ur Random Creatinine 50 Ur Random Sodium 30.0 Ur Random Potassium 18 Ur Random Chloride 48.7 L Influenza A (Rapid) Negative Influenza B (Rapid) Negative 07/02/25 13:49 WBC RBC Hgb Hct MCV MCH MCHC RDW Std Deviation Plt Count Neut % (Auto) Lymph % (Auto) Stephenson % (Auto) Eos % (Auto) Baso % (Auto) Neut # (Auto) Lymph # (Auto) Stephenson # (Auto) Eos # (Auto) Baso # (Auto) Immature Gran # (Auto) Absolute Nucleated RBC Immature Gran % Nucleated RBC % Sodium 135 L Potassium 3.5 D Chloride 99 Carbon Dioxide 24.4 Anion Gap 12 BUN 6 L Creatinine 0.8 Estim Creat Clear Calc 74.7 eGFR > 60 BUN/Creatinine Ratio 8 L Glucose [address] Glu mg/dL Hemoglobin A1c Calculated Osmolality 269 L Calcium 8.5 Corrected Calcium 9.2 Phosphorus 2.1 L Magnesium Total Bilirubin AST ALT Alkaline Phosphatase Total Protein Albumin 3.1 L D Globulin Albumin/Globulin Ratio Ur Random Creatinine Ur Random Sodium Ur Random Potassium Ur Random Chloride Influenza A (Rapid) Influenza B (Rapid) Impressions Impression: Large gastric ulcer in the region of antrum and pylorus Diffuse gastritis with mucosal oozing of blood 1+ esophageal varices Plan Peptic ulcer disease diet Continue Protonix Follow CBC Continue Carafate/sucralfate suspension and Maalox ABG Interpretation ABG results: 06/30/25 18:31 VBG pH 7.50 VBG pCO2 26 L VBG pO2 47 VBG Base Excess -3 Assessment & Plan A&P Narrative # End-stage liver disease in the setting of excessive alcohol abuse with advanced portal hypertension and intractable ascites anasarca and a GI bleed Plan Agree with the blood transfusion Would recommend IV Protonix and octreotide infusion Consent obtained for fiberoptic esophagogastroduodenoscopy with possible biopsy possible therapeutic intervention under intravenous moderate sedation Recommend therapeutic ultrasound-guided paracentesis and send the fluid for complete analysis Will follow the patient Advised complete abstinence from alcohol Thank you very much for the opportunity to participate in the care of this patient Time Spent With Patient Time: Total time spent is greater than 50% in coordination of care (as documented) at patient's floor/unit and/or counseling patient:
[2025-07-02] MEDS: ACETAMINOPHEN 325 MG TABLET 650 MG PO (22:31)
[2025-07-03] VITALS (9 sets, daily range): BP systolic 98–135; BP diastolic 62–89; PULSE 60–95; RESP 13–18; TEMP 36.1–36.6; O2SAT 95–96; BMI 21.5
[2025-07-03] MEDS: MG HYD/AL HYD/SIME (Maalox Reg) SUSP 30 ML UDC PO ×6 (01:22→21:07)
[2025-07-03] MEDS: SUCRALFATE SUSP 1 GM/10 ML UDC PO ×4 (05:23→21:07)
[2025-07-03] MEDS: HEPARIN SOD INJ 5000 UNIT/ML VIAL SC ×3 (05:24→21:07)
[2025-07-03 06:02] LABS: Basophils # (Auto) 0.1 Thou/mm3 (0.0-0.2); Basophils % (Auto) 1 % (0-2.5); Eosinophils # (Auto) 0.3 Thou/mm3 (0.0-0.5); Eosinophils % (Auto) 3 % (0-10); Hematocrit 26.6 % (36.0-46.0); Immature Granulocytes Auto 0.05 Thou/mm3 (0.00-0.00); Lymphocytes # (Auto) 1.9 Thou/mm3 (1.0-4.8); Lymphocytes % (Auto) 19 % (10-50); Mean Corpuscular HGB Conc 33.1 g/dl (31.0-37.0); Mean Corpuscular Hemoglobin 27.8 pg (25.0-35.0); Mean Corpuscular Volume 84 fL (80-100); Monocytes # (Auto) 1.5 Thou/mm3 (0.0-0.8); Monocytes % (Auto) 15 % (0-12); Neutrophils # (Auto) 6.2 Thou/mm3 (1.8-7.7); Neutrophils % (Auto) 62 % (37-80); Nucleated Red Blood Cell # 0.00 Thou/mm3 (0.00-0.00); Nucleated Red Blood Cell % 0 /100 WBC (0); Platelet Count 98 Thou/mm3 (140-440); RDW Standard Deviation 51.8 fL (36.4-46.3); Red Blood Count 3.16 Miln/mm3 (4.00-5.20); White Blood Count 9.9 Thou/mm3 (3.6-11.0)
[2025-07-03 06:13] LABS: Hemoglobin 8.8 g/dL (12.0-16.0)
[2025-07-03 06:26] LABS: Alanine Aminotransferase 16 U/L (10-49); Albumin, Serum 2.4 gm/dL (3.5-5.0); Albumin/Globulin Ratio 0.8 (1.2-2.2); Alkaline Phosphatase 135 U/L (46-116); Anion Gap 8 (7-16); Aspartate Amino Transferase 105 U/L (0-34); BUN/Creatinine Ratio 6 Ratio (12-20); Bilirubin,Total 5.1 mg/dL (0.3-1.2); Blood Urea Nitrogen < 5 mg/dL (9-23); Calcium 8.1 mg/dL (8.3-10.6); Calcium (Corrected) 9.4 mg/dL (8.5-10.1); Carbon Dioxide 27.8 mMol/L (20.0-31.0); Chloride 103 mMol/L (98-107); Creatinine (Component) 0.8 mg/dL (0.6-1.3); Estimated Creatinine Clearance 74.7 mL/min (>60); Globulin 2.9 gm/dL (2.3-3.5); Glucose 113 mg/dL (74-106); Magnesium 1.9 mg/dL (1.6-2.6); Osmolality,Calculated 275 (275-295); Phosphorous 1.7 mg/dL (2.4-5.1); Potassium 4.0 mMol/L (3.4-5.1); Sodium 139 mMol/L (136-145); Total Protein 5.3 gm/dL (5.7-8.2); eGFR > 60 See Note
[2025-07-03] MEDS: ALBUMIN HUMAN-KJDA 25% IVPB 25 GM/100 ML BTL IV (08:41)
[2025-07-03] MEDS: FUROSEMIDE INJ 10 MG/ML 4ML VIAL 20 MG IVP (08:42)
[2025-07-03] MEDS: NAPH,KPH MBDB 1 PACKET (1.5 GM) PO (08:48)
[2025-07-03] MEDS: PANTOPRAZOLE 40 MG TABLET PO ×2 (08:48→21:08)
[2025-07-03] MEDS: SPIRONOLACTONE 25 MG TABLET 100 MG PO (08:49)
[2025-07-03] MEDS: cefTRIAXone/D5w 1gm IV premix 1 GM/50 ML BAG IV (08:50)
--- NOTE | 2025-07-03 11:39 | PC.NURSE ---
mcgee discontinued per
--- NOTE | 2025-07-03 12:52 | ESPR_ITS ---
<Statement entered by Phil Plascencia MD - 07/16/25 17:17> I reviewed above note and agree with findings and plans. I have also personally examined the patient with medicine team and went over assessment and plan with medical team including creative intern and resident physician. Documentation for date of: 07/03/25 No overnight events. Patient examined at bedside. Discontinue Stock catheter. Continue octerotride drip, initially started overnight on 07/01/2025-07/06/2025. - The patient's plan was discussed with attending Dr. Temo Carmona MD PGY2 Internal Medicine Subjective Subjective Interval history: Patient examined bedside, labs reviewed. Will remain until 07/06 for octreotide. Tele showed sinus rhythm overnight. Today patient is AOx4, no complaints. Reports no new symptoms or complaints. Exam Vital Signs Temp Pulse Resp BP Pulse Ox O2 Del Method O2 Flow Rate 97.8 F 80 16 103/72 96 Room Air 1 07/03/25 08:00 07/03/25 08:49 07/03/25 08:00 07/03/25 08:49 07/03/25 08:00 07/03/25 08:00 07/01/25 20:10 Narrative Exam General: Lying in bed comfortable NAD Eye: PERRL, EOMI, sleral icterus HENT: Normocephalic, atraumatic, normal hearing, moist oral mucosa Neck: Supple, non-tender, no JVD, no lymphadenopathy Lungs: Clear to auscultation bilaterally, non-labored respirations, symmetric chest rise, no use of accessory muscles Heart: Normal S1 and S2, no S3 or S4 appreciated. Normal rate and regular rhythm, no murmurs, rubs gallops. Trace pedal edema Abdomen: NBS, NTTP, soft, distended Musculoskeletal: Normal range of motion and strength Skin: Telangiectasia present on right collarbone, spider angiomata, caput medusae Neurologic: Alert, awake and oriented x3. CN II-XII grossly intact. No focal neuro deficits. No asterixis Psychiatric: Cooperative mood is ok , affect seems restricted Objective Labs 07/04/25 04:50 07/04/25 04:50 Labs: Laboratory Results - last 24 hr 07/02/25 07/03/25 13:49 04:48 WBC 9.9 RBC 3.16 L Hgb 8.8 L Hct 26.6 L MCV 84 MCH 27.8 MCHC 33.1 RDW Std Deviation 51.8 H Plt Count 98 L Neut % (Auto) 62 Lymph % (Auto) 19 [place] % (Auto) 15 H Eos % (Auto) 3 Baso % (Auto) 1 Neut # (Auto) 6.2 Lymph # (Auto) 1.9 [place] # (Auto) 1.5 H Eos # (Auto) 0.3 Baso # (Auto) 0.1 Immature Gran # (Auto) 0.05 H Absolute Nucleated RBC 0.00 Immature Gran % 1 H Nucleated RBC % 0 Sodium 135 L 139 Potassium 3.5 D 4.0 D Chloride 99 103 Carbon Dioxide 24.4 27.8 Anion Gap 12 8 BUN 6 L < 5 L Creatinine 0.8 0.8 Estim Creat Clear Calc 74.7 74.7 eGFR > 60 > 60 BUN/Creatinine Ratio 8 L 6 L Glucose 130 H 113 H Calculated Osmolality 269 L 275 Calcium 8.5 8.1 L Corrected Calcium 9.2 9.4 Phosphorus 2.1 L 1.7 L Magnesium 1.9 Total Bilirubin 5.1 H D AST 105 H ALT 16 Alkaline Phosphatase 135 H Total Protein 5.3 L Albumin 3.1 L D 2.4 L D Globulin 2.9 Albumin/Globulin Ratio 0.8 L ABG Interpretation ABG results: 06/30/25 18:31 VBG pH 7.50 VBG pCO2 26 L VBG pO2 47 VBG Base Excess -3 Quality Measures Quality Measures none Assessment & Plan Assessment Current Active Medications: Generic Name Dose Route Start Last Admin Trade Name Freq PRN Reason Stop Dose Admin Acetaminophen 650 mg 06/30/25 23:15 07/02/25 22:31 Acetaminophen 325 Mg Tablet PO 07/30/25 23:14 650 mg Q8H PRN Administration Fever >100.3 or pain 1-3 Al Hydrox/Mg Hydrox/Simethicone 30 ml 07/01/25 22:00 07/03/25 12:30 Mg Hyd/Al Hyd/Will (Maalox Reg) Susp 30 Ml Udc PO 07/31/25 21:59 30 ml Q4HR CRISTOPHER Administration Furosemide 20 mg 07/01/25 09:00 07/03/25 08:42 Furosemide Inj 10 Mg/Ml 4ml Vial IVP 07/31/25 08:59 20 mg QDAY CRISTOPHER Administration Heparin Sodium (Porcine) 5,000 unit 06/30/25 22:15 07/03/25 05:24 Heparin Sod Inj 5000 Unit/Ml Vial SC 07/14/25 22:14 5,000 unit Q8HR CRISTOPHER Administration Ceftriaxone Sodium/Dextrose 1 gm in 50 mls @ 100 mls/hr 07/01/25 09:00 07/03/25 08:50 Rocephin/D5w 1gm Iv Premix IV 07/08/25 08:59 100 mls/hr QDAY CRISTOPHER Administration Octreotide Acetate 1,000 mcg/ 102 mls @ 5.1 mls/hr 07/01/25 19:31 07/02/25 14:27 Sodium Chloride IV 07/06/25 19:31 50 mcg/hr .Q20H CRISTOPHER 5.1 mls/hr Protocol Administration 50 MCG/HR Lactulose 20 gm 06/30/25 22:15 07/03/25 05:24 Lactulose Syrup 20 Gm/30 Ml Udc PO 07/30/25 22:14 Not Given TID CRISTOPHER Protocol Ondansetron HCl 4 mg 06/30/25 21:59 Ondansetron Inj 2 Mg/Ml Inj 2 Ml IVP 07/30/25 21:58 Q6H PRN NAUSEA OR VOMITING Protocol Pantoprazole Sodium 40 mg 07/01/25 21:00 07/03/25 08:48 Pantoprazole 40 Mg Tablet PO 07/31/25 20:59 40 mg BID CRISTOPHER Administration Protocol Rifaximin 550 mg 07/02/25 10:00 07/03/25 08:49 Rifaximin 550 Mg Tablet PO 07/09/25 09:59 550 mg BID CRISTOPHER Administration Spironolactone 100 mg 07/01/25 09:00 07/03/25 08:49 Spironolactone 25 Mg Tablet PO 07/31/25 08:59 100 mg DAILY CRISTOPHER Administration Sucralfate 1 gm 07/01/25 21:00 07/03/25 12:30 Sucralfate Susp 1 Gm/10 Ml Udc PO 07/31/25 20:59 1 gm QID CRISTOPHER Administration Plan Ms. Hand is a 40 y/o Japanese-speaking female with no PMHx who presents with abdominal pain, LE edema b/l and distension x4 days. Admitted for acutely decompensated ESLD, c/f GI bleed. Continue octreotide until 07/06. #Acute anemia 2/2 #Upper GI bleed #Esophageal varices Grade I #Gastric ulcer, nonbleeding Ricardo Class III Hemoglobin of 5.1 on admission 9.2 after 2 units of RBCs transfused. FOBT+. EGD shows Grade I esophageal varices and nonbleeding cratered gastric ulcer (Class III). - Ceftriaxone 1 g IV daily for SBP prophylaxis - Pantoprazole 40 mg IV BID for GI bleed - Octreotide 50 mcg load + 50 mcg/hr gtt IV for suspected GI bleed given Hgb 5.1 - GI consulted completed EGD 07/01 - CTM for s/sx GI bleed, daily CBC #Acutely decompensated End-stage liver disease #Thrombocytopenia #Hyperbilirubinemia #Moderate ascites #Anasarca Initial presentation: Diffuse abdominal pain, abd distension x4 days, spider angiomata, telangiectasia, jaundice, scleral icterus, caput medusae, b/l LE edema 2+, ascites. AOx3, no asterixis. Chronic EtOH and Tylenol use. Ammonia: 50. Albumin: 2.7. Hepatitis panel: non-reactive. Kidney function: eGFR >60. Elevated AST, alk phos. ALT WNL. Synthetic liver dysfunction present (PT 15.6, INR 1.5). Abd US: Primary hepatocellular disease vs cirrhosis. CT a/p w/: cirrhosis, ascites, anasarca. Meds given in ED: Lasix 40 mg IV, Zofran 4 mg IV, KCl 40 mEq IV, Ceftriaxone 1g IV. Ordered 2U pRBC, pending transfusion. MELD-Na: 26 --> 19.6% est 3 month mortality. Child-Marshall: 11 --> class C, life expectancy 1-3 years. S/p paracentesis 3.6L of fluid removed. DDX cause: GI bleed, EtOH, supratherapeutic dosing of Tylenol Plan: - Lactulose 20 mg PO TID - Lasix 40 mg IV daily - Spironolactone 100 mg PO daily - Rifaximin 550 mg PO BID - Hbg A1c: 4.4 - Large volume paracentesis yielded 3.6 L - Paracentesis fluid analysis: not viable for analysis - Daily weights - Transfuse pRBC if hgb <7 - Transfuse plt if plt <10 to prevent spontaneous hemorrhage - Limit Acetaminophen use <=2-3 g/day for mild 1-3 pain (650 mg PO q8h). Toradol 15 mg IV q6h PRN pain 4-7. Can do dilaudid 0.5 mg q6h if pain 8-10. Avoid NSAIDs 2/2 risk of hepatorenal syndrome. #Hypercholesterolemia #Hypertriglyceridemia T, cholesterol: 245 LDL: 196. Statin not used due to liver issues. Plan: -Consider fibrate outpatient #Normocytic normochromic anemia i/s/o acute decompensated ESLD, c/f GI bleed Pt denies melena, hematochezia, hematemesis In ED, pRBC transfusion, post-transfusion H&H Current: Hgb 9.5, HCT 28.3 Plan: - CTM for s/sx GI bleed, daily CBC #Small left pleural effusion i/s/o ESLD Seen on CXR 06/30 spO2 appropriate on RA, no respiratory distress Plan: - Diuretics management as above #Gallbladder sludge Seen on abd US No cholelithiasis, no cholecystitis Plan: - CTM for worsening abd pain #Hyponatremia, improved i/s/o ESLD Na 120 --> 134 Plan: - Diuretics management as above #EtOH use disorder Drinks 3 beers [place] Light (normal sized cans) per day, EtOH use exacerbated by recent of her baby Plan: - Will need social work case manager referral - Counseled patient on EtOH cessation extensively Checklist Dispo: Tele, pending discharge Diet: Clears Bowel Reg: lactulose 20 g PO TID VTE ppx: heparin subQ (plt 102) GI ppx: Pantoprazole 40 mg IV Pain mgmt: Limit Acetaminophen use <=2-3 g/day for mild 1-3 pain (650 mg PO q8h). Toradol 15 mg IV q6h PRN pain 4-7. Can do dilaudid 0.5 mg q6h if pain 8- 10. Code status: Full Case was discussed with Attending Dr. Plascencia, and Senior Resident Dr. Mathew Murry MD PGY-1
[2025-07-03] MEDS: LACTULOSE SYRUP 20 GM/30 ML UDC PO ×2 (14:05→21:07)
[2025-07-03] MEDS: OCTREOTIDE ACET INJ 1,000 MCG in SODIUM CHLORIDE 0.9% 100 ML 5.1 MCG IV (14:05)
--- NOTE | 2025-07-03 16:58 | PD.IMPROG ---
Documentation for date of: 07/03/25 Subjective Subjective Interval history: Patient evaluated hemoglobin hematocrit 8.8 and 26.6 platelet count 98,000 Total bilirubin 5.5 Patient underwent large-volume paracentesis 3600 cc fluid was obtained Only diuretic patient is on his spironolactone 100 mg Will add Bumex 1 mg IV push every 12 2 g sodium diet 1 L p.o. fluid restriction in 24 hours Exam Vital Signs Temp Pulse Resp BP Pulse Ox O2 Del Method O2 Flow Rate 97.7 F 95 18 126/82 96 Room Air 1 07/03/25 16:00 07/03/25 16:00 07/03/25 16:00 07/03/25 16:00 07/03/25 16:00 07/03/25 16:00 07/01/25 20:10 Objective Labs 07/03/25 04:48 07/03/25 04:48 Labs: Laboratory Results - last 24 hr 07/03/25 04:48 WBC 9.9 RBC 3.16 L Hgb 8.8 L Hct 26.6 L MCV 84 MCH 27.8 MCHC 33.1 RDW Std Deviation 51.8 H Plt Count 98 L Neut % (Auto) 62 Lymph % (Auto) 19 [place] % (Auto) 15 H Eos % (Auto) 3 Baso % (Auto) 1 Neut # (Auto) 6.2 Lymph # (Auto) 1.9 [place] # (Auto) 1.5 H Eos # (Auto) 0.3 Baso # (Auto) 0.1 Immature Gran # (Auto) 0.05 H Absolute Nucleated RBC 0.00 Immature Gran % 1 H Nucleated RBC % 0 Sodium 139 Potassium 4.0 D Chloride 103 Carbon Dioxide 27.8 Anion Gap 8 BUN < 5 L Creatinine 0.8 Estim Creat Clear Calc 74.7 eGFR > 60 BUN/Creatinine Ratio 6 L Glucose 113 H Calculated Osmolality 275 Calcium 8.1 L Corrected Calcium 9.4 Phosphorus 1.7 L Magnesium 1.9 Total Bilirubin 5.1 H D AST 105 H ALT 16 Alkaline Phosphatase 135 H Total Protein 5.3 L Albumin 2.4 L D Globulin 2.9 Albumin/Globulin Ratio 0.8 L Impressions Impression: Decompensated chronic liver disease with advanced portal hypertension intractable ascites requiring ultrasound-guided paracentesis Add Bumex 1 mg IV push Q12 2 g sodium diet 1 L p.o. fluid striction 24 hours ABG Interpretation ABG results: 06/30/25 18:31 VBG pH 7.50 VBG pCO2 26 L VBG pO2 47 VBG Base Excess -3 Assessment & Plan A&P Narrative # End-stage liver disease in the setting of excessive alcohol abuse with advanced portal hypertension and intractable ascites anasarca and a GI bleed Plan Agree with the blood transfusion Would recommend IV Protonix and octreotide infusion Consent obtained for fiberoptic esophagogastroduodenoscopy with possible biopsy possible therapeutic intervention under intravenous moderate sedation Recommend therapeutic ultrasound-guided paracentesis and send the fluid for complete analysis Will follow the patient Advised complete abstinence from alcohol Thank you very much for the opportunity to participate in the care of this patient Time Spent With Patient Time: Total time spent is greater than 50% in coordination of care (as documented) at patient's floor/unit and/or counseling patient:
[2025-07-03] MEDS: BUMETANIDE INJ 0.25 MG/ML VIAL 4 ML 1 MG IVP (21:08)
[2025-07-04] VITALS (8 sets, daily range): BP systolic 113–138; BP diastolic 65–84; PULSE 59–79; RESP 12–20; TEMP 36.1–36.3; O2SAT 93–97
[2025-07-04] MEDS: MG HYD/AL HYD/SIME (Maalox Reg) SUSP 30 ML UDC PO ×5 (01:20→21:11)
[2025-07-04] MEDS: LACTULOSE SYRUP 20 GM/30 ML UDC PO ×2 (05:11→14:09)
[2025-07-04] MEDS: SUCRALFATE SUSP 1 GM/10 ML UDC PO ×4 (05:11→21:11)
[2025-07-04] MEDS: HEPARIN SOD INJ 5000 UNIT/ML VIAL SC ×3 (05:12→21:11)
[2025-07-04] MEDS: PROMETHAZINE/DM SYRUP 5 ML DOSE 10 ML PO (06:08)
[2025-07-04 06:40] LABS: Basophils # (Auto) 0.1 Thou/mm3 (0.0-0.2); Basophils % (Auto) 1 % (0-2.5); Eosinophils # (Auto) 0.4 Thou/mm3 (0.0-0.5); Eosinophils % (Auto) 4 % (0-10); Hematocrit 26.6 % (36.0-46.0); Immature Granulocytes Auto 0.05 Thou/mm3 (0.00-0.00); Lymphocytes # (Auto) 1.9 Thou/mm3 (1.0-4.8); Lymphocytes % (Auto) 20 % (10-50); Mean Corpuscular HGB Conc 32.3 g/dl (31.0-37.0); Mean Corpuscular Hemoglobin 27.8 pg (25.0-35.0); Mean Corpuscular Volume 86 fL (80-100); Monocytes # (Auto) 1.5 Thou/mm3 (0.0-0.8); Monocytes % (Auto) 16 % (0-12); Neutrophils # (Auto) 5.5 Thou/mm3 (1.8-7.7); Neutrophils % (Auto) 59 % (37-80); Nucleated Red Blood Cell # 0.02 Thou/mm3 (0.00-0.00); Nucleated Red Blood Cell % 0 /100 WBC (0); Platelet Count 108 Thou/mm3 (140-440); RDW Standard Deviation 55.4 fL (36.4-46.3); Red Blood Count 3.09 Miln/mm3 (4.00-5.20); White Blood Count 9.3 Thou/mm3 (3.6-11.0)
[2025-07-04 06:49] LABS: Alanine Aminotransferase 16 U/L (10-49); Albumin, Serum 2.7 gm/dL (3.5-5.0); Albumin/Globulin Ratio 0.9 (1.2-2.2); Alkaline Phosphatase 128 U/L (46-116); Anion Gap 9 (7-16); Aspartate Amino Transferase 85 U/L (0-34); BUN/Creatinine Ratio 7 Ratio (12-20); Bilirubin,Total 5.5 mg/dL (0.3-1.2); Blood Urea Nitrogen < 5 mg/dL (9-23); Calcium 8.1 mg/dL (8.3-10.6); Calcium (Corrected) 9.1 mg/dL (8.5-10.1); Carbon Dioxide 31.5 mMol/L (20.0-31.0); Chloride 101 mMol/L (98-107); Creatinine (Component) 0.7 mg/dL (0.6-1.3); Estimated Creatinine Clearance 81.4 mL/min (>60); Globulin 3.1 gm/dL (2.3-3.5); Glucose 109 mg/dL (74-106); Magnesium 1.4 mg/dL (1.6-2.6); Osmolality,Calculated 279 (275-295); Phosphorous 1.5 mg/dL (2.4-5.1); Potassium 3.5 mMol/L (3.4-5.1); Sodium 141 mMol/L (136-145); Total Protein 5.8 gm/dL (5.7-8.2); eGFR > 60 See Note
[2025-07-04 06:50] LABS: Hemoglobin 8.6 g/dL (12.0-16.0)
--- NOTE | 2025-07-04 07:42 | ESPR_ITS ---
<Statement entered by Phil Plascencia MD - 07/16/25 17:17> I reviewed above note and agree with findings and plans. I have also personally examined the patient with medicine team and went over assessment and plan with medical team including buyer intern and resident physician. <Statement entered by Adrián Bond MD - 07/05/25 05:49> I saw and examined patient personally and supervised PGY 1 resident, Dr. Murry with formulating a management plan. I agree with the documentation with the exceptions as listed below. Continues to be on octreotide infusion until 07/06. Once patient condition remains stable anticipate discharge in next 48 hours. Plan of care discussed with Attending Dr. Temo Bond MD PGY 2 Disclaimer: This note was dictated by speech recognition. Minor errors in mail distributor may be present due to voice recognition software. Documentation for date of: 07/04/25 Subjective Subjective Interval history: Patient examined bedside, labs reviewed. GI saw her yesterday provided recs: Bumex 1g IV Q12H, 2g Na diet, 1L PO fluid restriction 24 hours. The patient reports feeling much better today without any symptoms. She will be recieving octreotide until 07/06. Exam Vital Signs Temp Pulse Resp BP Pulse Ox O2 Del Method O2 Flow Rate 97.3 F 67 18 131/69 H 97 Room Air 1 07/04/25 04:00 07/04/25 04:00 07/04/25 04:00 07/04/25 04:00 07/04/25 04:00 07/04/25 04:00 07/01/25 20:10 Narrative Exam General: Lying in bed comfortable NAD Eye: PERRL, EOMI, sleral icterus HENT: Normocephalic, atraumatic, normal hearing, moist oral mucosa Neck: Supple, non-tender, no JVD, no lymphadenopathy Lungs: Clear to auscultation bilaterally, non-labored respirations, symmetric chest rise, no use of accessory muscles Heart: Normal S1 and S2, no S3 or S4 appreciated. Normal rate and regular rhythm, no murmurs, rubs gallops. Trace pedal edema Abdomen: NBS, NTTP, soft, distended Musculoskeletal: Normal range of motion and strength Skin: Telangiectasia present on right collarbone, spider angiomata, caput medusae Neurologic: Alert, awake and oriented x3. CN II-XII grossly intact. No focal neuro deficits. No asterixis Psychiatric: Cooperative mood is ok , affect seems restricted Objective Labs 07/04/25 04:50 07/04/25 04:50 Labs: Laboratory Results - last 24 hr 07/04/25 04:50 WBC 9.3 RBC 3.09 L Hgb 8.6 L Hct 26.6 L MCV 86 MCH 27.8 MCHC 32.3 RDW Std Deviation 55.4 H Plt Count 108 L Neut % (Auto) 59 Lymph % (Auto) 20 [place] % (Auto) 16 H Eos % (Auto) 4 Baso % (Auto) 1 Neut # (Auto) 5.5 Lymph # (Auto) 1.9 [place] # (Auto) 1.5 H Eos # (Auto) 0.4 Baso # (Auto) 0.1 Immature Gran # (Auto) 0.05 H Absolute Nucleated RBC 0.02 H Immature Gran % 1 H Nucleated RBC % 0 Sodium 141 Potassium 3.5 D Chloride 101 Carbon Dioxide 31.5 H Anion Gap 9 BUN < 5 L Creatinine 0.7 Estim Creat Clear Calc 81.4 eGFR > 60 BUN/Creatinine Ratio 7 L Glucose 109 H Calculated Osmolality 279 Calcium 8.1 L Corrected Calcium 9.1 Phosphorus 1.5 L Magnesium 1.4 L Total Bilirubin 5.5 H AST 85 H ALT 16 Alkaline Phosphatase 128 H Total Protein 5.8 Albumin 2.7 L Globulin 3.1 Albumin/Globulin Ratio 0.9 L ABG Interpretation ABG results: 06/30/25 18:31 VBG pH 7.50 VBG pCO2 26 L VBG pO2 47 VBG Base Excess -3 Quality Measures Quality Measures none Assessment & Plan Assessment Current Active Medications: Generic Name Dose Route Start Last Admin Trade Name Freq PRN Reason Stop Dose Admin Acetaminophen 650 mg 06/30/25 23:15 07/02/25 22:31 Acetaminophen 325 Mg Tablet PO 07/30/25 23:14 650 mg Q8H PRN Administration Fever >100.3 or pain 1-3 Al Hydrox/Mg Hydrox/Simethicone 30 ml 07/01/25 22:00 07/04/25 05:11 Mg Hyd/Al Hyd/Will (Maalox Reg) Susp 30 Ml Udc PO 07/31/25 21:59 30 ml Q4HR CRISTOPHER Administration Bumetanide 1 mg 07/03/25 21:00 07/03/25 21:08 Bumetanide Inj 0.25 Mg/Ml Vial 4 Ml IVP 08/02/25 20:59 1 mg BID CRISTOPHER Administration Heparin Sodium (Porcine) 5,000 unit 06/30/25 22:15 07/04/25 05:12 Heparin Sod Inj 5000 Unit/Ml Vial SC 07/14/25 22:14 5,000 unit Q8HR CRISTOPHER Administration Ceftriaxone Sodium/Dextrose 1 gm in 50 mls @ 100 mls/hr 07/01/25 09:00 07/03/25 08:50 Rocephin/D5w 1gm Iv Premix IV 07/08/25 08:59 100 mls/hr QDAY CRISTOPHER Administration Octreotide Acetate 1,000 mcg/ 102 mls @ 5.1 mls/hr 07/01/25 19:31 07/03/25 14:05 Sodium Chloride IV 07/06/25 19:31 50 mcg/hr .Q20H CRISTOPHER 5.1 mls/hr Protocol Administration 50 MCG/HR Potassium Phosphate 15 mmol in 250 mls @ 62.5 mls/hr 07/04/25 07:38 Pot Phos 15 Mmol In Ns 250 Ml IV 07/04/25 15:37 Q4H CRISTOPHER Potassium Phosphate 15 mmol in 250 mls @ 62.5 mls/hr 07/04/25 15:38 Pot Phos 15 Mmol In Ns 250 Ml IV 07/04/25 19:37 X1 ONE Magnesium Sulfate 4 gm in 50 mls @ 12.5 mls/hr 07/04/25 07:39 Magnesium Sulfate Ivpb IV 07/04/25 11:38 X1 ONE Lactulose 20 gm 06/30/25 22:15 07/04/25 05:11 Lactulose Syrup 20 Gm/30 Ml Udc PO 07/30/25 22:14 20 gm TID CRISTOPHER Administration Protocol Ondansetron HCl 4 mg 06/30/25 21:59 Ondansetron Inj 2 Mg/Ml Inj 2 Ml IVP 07/30/25 21:58 Q6H PRN NAUSEA OR VOMITING Protocol Pantoprazole Sodium 40 mg 07/01/25 21:00 07/03/25 21:08 Pantoprazole 40 Mg Tablet PO 07/31/25 20:59 40 mg BID CRISTOPHER Administration Protocol Promethazine HCl/Dextromethorphan 10 ml 10/12/25 05:30 07/04/25 06:08 Promethazine/Dm Syrup 5 Ml Dose PO 08/03/25 05:29 10 ml Q4HR PRN Administration COUGH Protocol Rifaximin 550 mg 07/02/25 10:00 07/03/25 21:07 Rifaximin 550 Mg Tablet PO 07/09/25 09:59 550 mg BID CRISTOPHER Administration Spironolactone 100 mg 07/01/25 09:00 07/03/25 08:49 Spironolactone 25 Mg Tablet PO 07/31/25 08:59 100 mg DAILY CRISTOPHER Administration Sucralfate 1 gm 07/01/25 21:00 07/04/25 05:11 Sucralfate Susp 1 Gm/10 Ml Udc PO 07/31/25 20:59 1 gm QID CRISTOPHER Administration Plan Ms. Hand is a 40 y/o [place]inamese-speaking female with no PMHx who presents with abdominal pain, LE edema b/l and distension x4 days. Admitted for acutely decompensated ESLD, c/f GI bleed. Continue octreotide until 07/06. #Acute anemia 2/2 #Upper GI bleed #Esophageal varices Grade I #Gastric ulcer, nonbleeding Ricardo Class III Hemoglobin of 5.1 on admission 9.2 after 2 units of RBCs transfused. FOBT+. EGD shows Grade I esophageal varices and nonbleeding cratered gastric ulcer (Class III). - Ceftriaxone 1 g IV daily for SBP prophylaxis - Pantoprazole 40 mg IV BID for GI bleed - Octreotide 50 mcg load + 50 mcg/hr gtt IV for suspected GI bleed given Hgb 5.1 - GI consulted completed EGD 07/01 - CTM for s/sx GI bleed, daily CBC #Acutely decompensated End-stage liver disease #Thrombocytopenia #Hyperbilirubinemia #Moderate ascites #Anasarca Initial presentation: Diffuse abdominal pain, abd distension x4 days, spider angiomata, telangiectasia, jaundice, scleral icterus, caput medusae, b/l LE edema 2+, ascites. AOx3, no asterixis. Chronic EtOH and Tylenol use. Ammonia: 50. Albumin: 2.7. Hepatitis panel: non-reactive. Kidney function: eGFR >60. Elevated AST, alk phos. ALT WNL. Synthetic liver dysfunction present (PT 15.6, INR 1.5). Abd US: Primary hepatocellular disease vs cirrhosis. CT a/p w/: cirrhosis, ascites, anasarca. Meds given in ED: Lasix 40 mg IV, Zofran 4 mg IV, KCl 40 mEq IV, Ceftriaxone 1g IV. Ordered 2U pRBC, pending transfusion. MELD-Na: 26 --> 19.6% est 3 month mortality. Child-Marshall: 11 --> class C, life expectancy 1-3 years. S/p paracentesis 3.6L of fluid removed. DDX cause: GI bleed, EtOH, supratherapeutic dosing of Tylenol Plan: - Lactulose 20 mg PO TID (Hold dose for >3BM in day) - Lasix 40 mg IV daily - Spironolactone 100 mg PO daily - Rifaximin 550 mg PO BID - Bumex 1g IV QD - 2g Sodium diet - Hbg A1c: 4.4 - Large volume paracentesis yielded 3.6 L - Paracentesis fluid analysis: not viable for analysis - Daily weights - Transfuse pRBC if hgb <7 - Transfuse plt if plt <10 to prevent spontaneous hemorrhage - Limit Acetaminophen use <=2-3 g/day for mild 1-3 pain (650 mg PO q8h). Toradol 15 mg IV q6h PRN pain 4-7. Can do dilaudid 0.5 mg q6h if pain 8-10. Avoid NSAIDs 2/2 risk of hepatorenal syndrome. #Hypercholesterolemia #Hypertriglyceridemia T, cholesterol: 245 LDL: 196. Statin not used due to liver issues. Plan: -Consider fibrate outpatient #Normocytic normochromic anemia i/s/o acute decompensated ESLD, c/f GI bleed Pt denies melena, hematochezia, hematemesis In ED, pRBC transfusion, post-transfusion H&H Current: Hgb 9.5, HCT 28.3 Plan: - CTM for s/sx GI bleed, daily CBC #Small left pleural effusion i/s/o ESLD Seen on CXR 06/30 spO2 appropriate on RA, no respiratory distress Plan: - Diuretics management as above #Gallbladder sludge Seen on abd US No cholelithiasis, no cholecystitis Plan: - CTM for worsening abd pain #Hyponatremia, improved i/s/o ESLD Na 120 --> 134 Plan: - Diuretics management as above #EtOH use disorder Drinks 3 beers [place] Light (normal sized cans) per day, EtOH use exacerbated by recent of her baby Plan: - Will need social media marketing manager referral - Counseled patient on EtOH cessation extensively Checklist Dispo: Tele, pending discharge Diet: Clears Bowel Reg: lactulose 20 g PO TID VTE ppx: heparin subQ (plt 102) GI ppx: Pantoprazole 40 mg IV Pain mgmt: Limit Acetaminophen use <=2-3 g/day for mild 1-3 pain (650 mg PO q8h). Toradol 15 mg IV q6h PRN pain 4-7. Can do dilaudid 0.5 mg q6h if pain 8- 10. Code status: Full Case was discussed with Attending Dr. Plascencia, and Senior Resident Dr. Mathew Murry MD PGY-1
[2025-07-04] MEDS: BUMETANIDE INJ 0.25 MG/ML VIAL 4 ML 1 MG IVP (08:53)
[2025-07-04] MEDS: PANTOPRAZOLE 40 MG TABLET PO ×2 (09:08→21:11)
[2025-07-04] MEDS: POT PHOS 15 mMol in NS 250 ML 15 MMOL/250 ML BAG 62.5 MMOL IV ×3 (09:10→18:10)
[2025-07-04] MEDS: cefTRIAXone/D5w 1gm IV premix 1 GM/50 ML BAG IV (09:10)
[2025-07-04] MEDS: SPIRONOLACTONE 25 MG TABLET 100 MG PO (09:11)
[2025-07-04] MEDS: Magnesium Sulfate 4 GM Ivpb 4 GM/50 ML BAG IV (10:47)
[2025-07-04] MEDS: OCTREOTIDE ACET INJ 1,000 MCG in SODIUM CHLORIDE 0.9% 100 ML 5.1 MCG IV (12:07)
--- NOTE | 2025-07-04 17:02 | ESPR_ITS ---
Documentation for date of: 07/04/25 Subjective Subjective Interval history: Patient evaluated Feeling better since the start of IV Bumex Exam Vital Signs Temp Pulse Resp BP Pulse Ox O2 Del Method O2 Flow Rate 97 F 79 18 122/80 94 L Room Air 1 07/04/25 12:00 07/04/25 12:00 07/04/25 12:00 07/04/25 12:00 07/04/25 12:00 07/04/25 12:00 07/01/25 20:10 Objective Labs 07/04/25 04:50 07/04/25 04:50 Labs: Laboratory Results - last 24 hr 07/04/25 04:50 WBC 9.3 RBC 3.09 L Hgb 8.6 L Hct 26.6 L MCV 86 MCH 27.8 MCHC 32.3 RDW Std Deviation 55.4 H Plt Count 108 L Neut % (Auto) 59 Lymph % (Auto) 20 [place] % (Auto) 16 H Eos % (Auto) 4 Baso % (Auto) 1 Neut # (Auto) 5.5 Lymph # (Auto) 1.9 [place] # (Auto) 1.5 H Eos # (Auto) 0.4 Baso # (Auto) 0.1 Immature Gran # (Auto) 0.05 H Absolute Nucleated RBC 0.02 H Immature Gran % 1 H Nucleated RBC % 0 Sodium 141 Potassium 3.5 D Chloride 101 Carbon Dioxide 31.5 H Anion Gap 9 BUN < 5 L Creatinine 0.7 Estim Creat Clear Calc 81.4 eGFR > 60 BUN/Creatinine Ratio 7 L Glucose 109 H Calculated Osmolality 279 Calcium 8.1 L Corrected Calcium 9.1 Phosphorus 1.5 L Magnesium 1.4 L Total Bilirubin 5.5 H AST 85 H ALT 16 Alkaline Phosphatase 128 H Total Protein 5.8 Albumin 2.7 L Globulin 3.1 Albumin/Globulin Ratio 0.9 L Impressions Impression: Decompensated chronic liver disease secondary to alcohol Intractable ascites requiring large-volume paracentesis Continue current management Follow renal function closely ABG Interpretation ABG results: 06/30/25 18:31 VBG pH 7.50 VBG pCO2 26 L VBG pO2 47 VBG Base Excess -3 Assessment & Plan A&P Narrative # End-stage liver disease in the setting of excessive alcohol abuse with advanced portal hypertension and intractable ascites anasarca and a GI bleed Plan Agree with the blood transfusion Would recommend IV Protonix and octreotide infusion Consent obtained for fiberoptic esophagogastroduodenoscopy with possible biopsy possible therapeutic intervention under intravenous moderate sedation Recommend therapeutic ultrasound-guided paracentesis and send the fluid for complete analysis Will follow the patient Advised complete abstinence from alcohol Thank you very much for the opportunity to participate in the care of this patient Time Spent With Patient Time: Total time spent is greater than 50% in coordination of care (as documented) at patient's floor/unit and/or counseling patient:
[2025-07-05] VITALS (8 sets, daily range): BP systolic 101–122; BP diastolic 54–74; PULSE 63–81; RESP 14–20; TEMP 36.1–36.7; O2SAT 94–97
[2025-07-05] MEDS: MG HYD/AL HYD/SIME (Maalox Reg) SUSP 30 ML UDC PO ×6 (01:21→22:02)
[2025-07-05] MEDS: LACTULOSE SYRUP 20 GM/30 ML UDC PO (05:29)
[2025-07-05] MEDS: SUCRALFATE SUSP 1 GM/10 ML UDC PO ×4 (05:30→20:01)
[2025-07-05] MEDS: HEPARIN SOD INJ 5000 UNIT/ML VIAL SC ×2 (05:30→14:31)
[2025-07-05 07:00] LABS: Basophils # (Auto) 0.1 Thou/mm3 (0.0-0.2); Basophils % (Auto) 1 % (0-2.5); Eosinophils # (Auto) 0.3 Thou/mm3 (0.0-0.5); Eosinophils % (Auto) 3 % (0-10); Hematocrit 26.1 % (36.0-46.0); Immature Granulocytes Auto 0.05 Thou/mm3 (0.00-0.00); Lymphocytes # (Auto) 2.0 Thou/mm3 (1.0-4.8); Lymphocytes % (Auto) 20 % (10-50); Mean Corpuscular HGB Conc 32.2 g/dl (31.0-37.0); Mean Corpuscular Hemoglobin 28.2 pg (25.0-35.0); Mean Corpuscular Volume 88 fL (80-100); Monocytes # (Auto) 1.5 Thou/mm3 (0.0-0.8); Monocytes % (Auto) 15 % (0-12); Neutrophils # (Auto) 5.9 Thou/mm3 (1.8-7.7); Neutrophils % (Auto) 60 % (37-80); Nucleated Red Blood Cell # 0.00 Thou/mm3 (0.00-0.00); Nucleated Red Blood Cell % 0 /100 WBC (0); RDW Standard Deviation 58.2 fL (36.4-46.3); Red Blood Count 2.98 Miln/mm3 (4.00-5.20); White Blood Count 9.9 Thou/mm3 (3.6-11.0)
[2025-07-05 07:04] LABS: Hemoglobin 8.4 g/dL (12.0-16.0); Platelet Count 75 Thou/mm3 (140-440)
[2025-07-05 07:22] LABS: Alanine Aminotransferase 20 U/L (10-49); Albumin, Serum 2.8 gm/dL (3.5-5.0); Albumin/Globulin Ratio 0.8 (1.2-2.2); Alkaline Phosphatase 133 U/L (46-116); Anion Gap 10 (7-16); Aspartate Amino Transferase 81 U/L (0-34); BUN/Creatinine Ratio 8 Ratio (12-20); Bilirubin,Total 4.9 mg/dL (0.3-1.2); Blood Urea Nitrogen 5 mg/dL (9-23); Calcium 8.4 mg/dL (8.3-10.6); Calcium (Corrected) 9.4 mg/dL (8.5-10.1); Carbon Dioxide 30.0 mMol/L (20.0-31.0); Chloride 102 mMol/L (98-107); Creatinine (Component) 0.6 mg/dL (0.6-1.3); Estimated Creatinine Clearance 95.0 mL/min (>60); Globulin 3.5 gm/dL (2.3-3.5); Glucose 126 mg/dL (74-106); Magnesium 1.7 mg/dL (1.6-2.6); Osmolality,Calculated 282 (275-295); Phosphorous 3.2 mg/dL (2.4-5.1); Potassium 4.2 mMol/L (3.4-5.1); Sodium 142 mMol/L (136-145); Total Protein 6.3 gm/dL (5.7-8.2); eGFR > 60 See Note
[2025-07-05 08:14] LABS: Slide Review Platelets confirmed
[2025-07-05] MEDS: Magnesium Sulfate 4 GM Ivpb 4 GM/50 ML BAG IV (09:50)
[2025-07-05] MEDS: BUMETANIDE INJ 0.25 MG/ML VIAL 4 ML 1 MG IVP (09:50)
[2025-07-05] MEDS: SPIRONOLACTONE 25 MG TABLET 100 MG PO (09:51)
[2025-07-05] MEDS: PANTOPRAZOLE 40 MG TABLET PO ×2 (09:51→20:01)
[2025-07-05] MEDS: cefTRIAXone/D5w 1gm IV premix 1 GM/50 ML BAG IV (09:51)
--- NOTE | 2025-07-05 11:54 | ESPR_ITS ---
<Statement entered by Adrián Bond MD - 07/06/25 08:39> I saw and examined patient personally and supervised PGY 1 resident, Dr. Murry with formulating a management plan. I agree with the documentation with the exceptions as listed below. Patient will continue on octreotide infusion until 07/06. Today she developed contraction alkalosis on the Lasix dose was held. Once no acute changes in her condition, anticipate discharge within next 24 to 48 hours. Plan of care discussed with Attending Dr. Darryl Bond MD PGY 2 Disclaimer: This note was dictated by speech recognition. Minor errors in clinical pharmacologist may be present due to voice recognition software. Documentation for date of: 07/05/25 Subjective Subjective Interval history: Patient examined bedside, labs reviewed. The patient reports feeling much better today without any symptoms. She will be recieving octreotide until 07/06. Exam Vital Signs Temp Pulse Resp BP Pulse Ox O2 Del Method O2 Flow Rate 97.7 F 70 17 111/67 94 L Room Air 1 07/05/25 08:00 07/05/25 09:51 07/05/25 08:00 07/05/25 09:51 07/05/25 08:00 07/05/25 08:00 07/01/25 20:10 Narrative Exam General: Lying in bed comfortable NAD Eye: PERRL, EOMI, sleral icterus HENT: Normocephalic, atraumatic, normal hearing, moist oral mucosa Neck: Supple, non-tender, no JVD, no lymphadenopathy Lungs: Clear to auscultation bilaterally, non-labored respirations, symmetric chest rise, no use of accessory muscles Heart: Normal S1 and S2, no S3 or S4 appreciated. Normal rate and regular rhythm, no murmurs, rubs gallops. Trace pedal edema Abdomen: NBS, NTTP, soft, distended Musculoskeletal: Normal range of motion and strength Skin: Telangiectasia present on right collarbone, spider angiomata, caput medusae Neurologic: Alert, awake and oriented x3. CN II-XII grossly intact. No focal neuro deficits. No asterixis Psychiatric: Cooperative mood is ok , affect seems restricted Objective Labs 07/06/25 04:44 07/06/25 04:44 Labs: Laboratory Results - last 24 hr 06/30/25 07/05/25 18:31 06:25 WBC 9.9 RBC 2.98 L Hgb 8.4 L Hct 26.1 L MCV 88 MCH 28.2 MCHC 32.2 RDW Std Deviation 58.2 H Plt Count 75 L D Neut % (Auto) 60 Lymph % (Auto) 20 [place] % (Auto) 15 H Eos % (Auto) 3 Baso % (Auto) 1 Neut # (Auto) 5.9 Lymph # (Auto) 2.0 [place] # (Auto) 1.5 H Eos # (Auto) 0.3 Baso # (Auto) 0.1 Immature Gran # (Auto) 0.05 H Absolute Nucleated RBC 0.00 Immature Gran % 1 H Nucleated RBC % 0 Sodium 142 Potassium 4.2 D Chloride 102 Carbon Dioxide 30.0 Anion Gap 10 BUN 5 L Creatinine 0.6 Estim Creat Clear Calc 95.0 eGFR > 60 BUN/Creatinine Ratio 8 L Glucose 126 H Calculated Osmolality 282 Calcium 8.4 Corrected Calcium 9.4 Phosphorus 3.2 Magnesium 1.7 Total Bilirubin 4.9 H D AST 81 H ALT 20 Alkaline Phosphatase 133 H Total Protein 6.3 Albumin 2.8 L Globulin 3.5 Albumin/Globulin Ratio 0.8 L Misc Test Result See Sep Rpt Platelets confirmed ABG Interpretation ABG results: 06/30/25 18:31 VBG pH 7.50 VBG pCO2 26 L VBG pO2 47 VBG Base Excess -3 Quality Measures Quality Measures none Assessment & Plan Assessment Current Active Medications: Generic Name Dose Route Start Last Admin Trade Name Freq PRN Reason Stop Dose Admin Acetaminophen 650 mg 06/30/25 23:15 07/02/25 22:31 Acetaminophen 325 Mg Tablet PO 07/30/25 23:14 650 mg Q8H PRN Administration Fever >100.3 or pain 1-3 Al Hydrox/Mg Hydrox/Simethicone 30 ml 07/01/25 22:00 07/05/25 09:51 Mg Hyd/Al Hyd/Will (Maalox Reg) Susp 30 Ml Udc PO 07/31/25 21:59 30 ml Q4HR CRISTOPHER Administration Bumetanide 1 mg 07/05/25 09:00 07/05/25 09:50 Bumetanide Inj 0.25 Mg/Ml Vial 4 Ml IVP 08/04/25 08:59 1 mg On Hold: 07/05/25 09:53 QDAY CRISTOPHER Administration Heparin Sodium (Porcine) 5,000 unit 06/30/25 22:15 07/05/25 05:30 Heparin Sod Inj 5000 Unit/Ml Vial SC 07/14/25 22:14 5,000 unit Q8HR CRISTOPHER Administration Ceftriaxone Sodium/Dextrose 1 gm in 50 mls @ 100 mls/hr 07/01/25 09:00 07/05/25 09:51 Rocephin/D5w 1gm Iv Premix IV 07/08/25 08:59 100 mls/hr QDAY CRISTOPHER Administration Octreotide Acetate 1,000 mcg/ 102 mls @ 5.1 mls/hr 07/01/25 19:31 07/04/25 12:07 Sodium Chloride IV 07/06/25 19:31 50 mcg/hr .Q20H CRISTOPHER 5.1 mls/hr Protocol Administration 50 MCG/HR Lactulose 20 gm 07/05/25 09:00 07/05/25 09:52 Lactulose Syrup 20 Gm/30 Ml Udc PO 08/04/25 08:59 Not Given BID CRISTOPHER Protocol Ondansetron HCl 4 mg 06/30/25 21:59 Ondansetron Inj 2 Mg/Ml Inj 2 Ml IVP 07/30/25 21:58 Q6H PRN NAUSEA OR VOMITING Protocol Pantoprazole Sodium 40 mg 07/01/25 21:00 07/05/25 09:51 Pantoprazole 40 Mg Tablet PO 07/31/25 20:59 40 mg BID CRISTOPHER Administration Protocol Promethazine HCl/Dextromethorphan 10 ml 07/04/25 05:30 07/04/25 06:08 Promethazine/Dm Syrup 5 Ml Dose PO 08/03/25 05:29 10 ml Q4HR PRN Administration COUGH Protocol Spironolactone 100 mg 07/01/25 09:00 07/05/25 09:51 Spironolactone 25 Mg Tablet PO 07/31/25 08:59 100 mg DAILY CRISTOPHER Administration Sucralfate 1 gm 07/01/25 21:00 07/05/25 05:30 Sucralfate Susp 1 Gm/10 Ml Udc PO 07/31/25 20:59 1 gm QID CRISTOPHER Administration Plan Ms. Hand is a 40 y/o Portuguese-speaking female with no PMHx who presents with abdominal pain, LE edema b/l and distension x4 days. Admitted for acutely decompensated ESLD, c/f GI bleed. Continue octreotide until 07/06. #Acute anemia 2/2 #Upper GI bleed #Esophageal varices Grade I #Gastric ulcer, nonbleeding Ricardo Class III Hemoglobin of 5.1 on admission 9.2 after 2 units of RBCs transfused. FOBT+. EGD shows Grade I esophageal varices and nonbleeding cratered gastric ulcer (Class III). - Ceftriaxone 1 g IV daily for SBP prophylaxis - DC'd 07/05 - Pantoprazole 40 mg IV BID for GI bleed - Octreotide 50 mcg load + 50 mcg/hr gtt IV for suspected GI bleed given Hgb 5.1 - GI consulted completed EGD 07/01 - CTM for s/sx GI bleed, daily CBC #Acutely decompensated End-stage liver disease #Thrombocytopenia #Hyperbilirubinemia #Moderate ascites #Anasarca Initial presentation: Diffuse abdominal pain, abd distension x4 days, spider angiomata, telangiectasia, jaundice, scleral icterus, caput medusae, b/l LE edema 2+, ascites. AOx3, no asterixis. Chronic EtOH and Tylenol use. Ammonia: 50. Albumin: 2.7. Hepatitis panel: non-reactive. Kidney function: eGFR >60. Elevated AST, alk phos. ALT WNL. Synthetic liver dysfunction present (PT 15.6, INR 1.5). Abd US: Primary hepatocellular disease vs cirrhosis. CT a/p w/: cirrhosis, ascites, anasarca. Meds given in ED: Lasix 40 mg IV, Zofran 4 mg IV, KCl 40 mEq IV, Ceftriaxone 1g IV. Ordered 2U pRBC, pending transfusion. MELD-Na: 26 --> 19.6% est 3 month mortality. Child-Marshall: 11 --> class C, life expectancy 1-3 years. S/p paracentesis 3.6L of fluid removed. DDX cause: GI bleed, EtOH, supratherapeutic dosing of Tylenol Plan: - Diet added multivitamin, 1g folate, 100mg thiamine - Fluid restriction 1.5L - Lactulose 20 mg PO BID (Hold dose for >3BM in day) - Lasix 40 mg IV daily - DC'd - Bumex 1mg IVP QD - Spironolactone 100 mg PO daily - Rifaximin 550 mg PO BID - DC'd 07/05 - Bumex 1g IV QD - 2g Sodium diet - Hbg A1c: 4.4 - Large volume paracentesis yielded 3.6 L - Paracentesis fluid analysis: not viable for analysis - Daily weights - Transfuse pRBC if hgb <7 - Transfuse plt if plt <10 to prevent spontaneous hemorrhage - Limit Acetaminophen use <=2-3 g/day for mild 1-3 pain (650 mg PO q8h). Toradol 15 mg IV q6h PRN pain 4-7. Can do dilaudid 0.5 mg q6h if pain 8-10. Avoid NSAIDs 2/2 risk of hepatorenal syndrome. #Hypercholesterolemia #Hypertriglyceridemia T, cholesterol: 245 LDL: 196. Statin not used due to liver issues. Plan: -Consider fibrate outpatient #Normocytic normochromic anemia i/s/o acute decompensated ESLD, c/f GI bleed Pt denies melena, hematochezia, hematemesis In ED, pRBC transfusion, post-transfusion H&H Current: Hgb 9.5, HCT 28.3 Plan: - CTM for s/sx GI bleed, daily CBC #Small left pleural effusion i/s/o ESLD Seen on CXR 06/30 spO2 appropriate on RA, no respiratory distress Plan: - Diuretics management as above #Gallbladder sludge Seen on abd US No cholelithiasis, no cholecystitis Plan: - CTM for worsening abd pain #Hyponatremia, improved i/s/o ESLD Na 120 --> 134 Plan: - Diuretics management as above #EtOH use disorder Drinks 3 beers [place] Light (normal sized cans) per day, EtOH use exacerbated by recent of her baby Plan: - Will need social media analyst referral - Counseled patient on EtOH cessation extensively Checklist Dispo: Tele, pending discharge Diet: Clears Bowel Reg: lactulose 20 g PO TID VTE ppx: heparin subQ (plt 102) GI ppx: Pantoprazole 40 mg IV Pain mgmt: Limit Acetaminophen use <=2-3 g/day for mild 1-3 pain (650 mg PO q8h). Toradol 15 mg IV q6h PRN pain 4-7. Can do dilaudid 0.5 mg q6h if pain 8- 10. Code status: Full Case was discussed with Attending Dr. Andrews, and Senior Resident Dr. Ronda Murry MD PGY-1 Attending Provider Attestation/Addendum 30-year-old female with liver cirrhosis, ascites, blood loss anemia, thrombocytopenia. Patient was found to have gastric ulcer and esophageal varices. She is on a octreotide infusion. She has no bradycardia. Discussed with and supervised the resident physician who took care of this patient. I agree with the assessment and plan as above.
[2025-07-05] MEDS: OCTREOTIDE ACET INJ 1,000 MCG in SODIUM CHLORIDE 0.9% 100 ML 5.1 MCG IV (12:37)
--- NOTE | 2025-07-05 14:21 | PC.SS ---
Update: On Octriotide drip, patient will discharge home tomorrow.
--- NOTE | 2025-07-05 19:06 | PD.IMPROG ---
Documentation for date of: 07/05/25 Subjective Subjective Interval history: Patient evaluated Doing well on IV Bumex BUN/creatinine staying stable BUN 5 and creatinine 0.6 Hemoglobin hematocrit 8.4 and 26.1 Exam Vital Signs Temp Pulse Resp BP Pulse Ox O2 Del Method O2 Flow Rate 97.5 F 81 14 113/70 95 Room Air 1 07/05/25 16:00 07/05/25 16:00 07/05/25 16:00 07/05/25 16:00 07/05/25 16:00 07/05/25 16:00 07/01/25 20:10 Objective Labs 07/05/25 06:25 07/05/25 06:25 Labs: Laboratory Results - last 24 hr 06/30/25 07/05/25 18:31 06:25 WBC 9.9 RBC 2.98 L Hgb 8.4 L Hct 26.1 L MCV 88 MCH 28.2 MCHC 32.2 RDW Std Deviation 58.2 H Plt Count 75 L D Neut % (Auto) 60 Lymph % (Auto) 20 [place] % (Auto) 15 H Eos % (Auto) 3 Baso % (Auto) 1 Neut # (Auto) 5.9 Lymph # (Auto) 2.0 [place] # (Auto) 1.5 H Eos # (Auto) 0.3 Baso # (Auto) 0.1 Immature Gran # (Auto) 0.05 H Absolute Nucleated RBC 0.00 Immature Gran % 1 H Nucleated RBC % 0 Sodium 142 Potassium 4.2 D Chloride 102 Carbon Dioxide 30.0 Anion Gap 10 BUN 5 L Creatinine 0.6 Estim Creat Clear Calc 95.0 eGFR > 60 BUN/Creatinine Ratio 8 L Glucose 126 H Calculated Osmolality 282 Calcium 8.4 Corrected Calcium 9.4 Phosphorus 3.2 Magnesium 1.7 Total Bilirubin 4.9 H D AST 81 H ALT 20 Alkaline Phosphatase 133 H Total Protein 6.3 Albumin 2.8 L Globulin 3.5 Albumin/Globulin Ratio 0.8 L Misc Test Result See Sep Rpt Platelets confirmed Impressions Impression: Decompensated chronic liver disease Continue IV Bumex P.o. spironolactone 2 g sodium diet 1 L p.o. fluid restriction ABG Interpretation ABG results: 06/30/25 18:31 VBG pH 7.50 VBG pCO2 26 L VBG pO2 47 VBG Base Excess -3 Assessment & Plan A&P Narrative # End-stage liver disease in the setting of excessive alcohol abuse with advanced portal hypertension and intractable ascites anasarca and a GI bleed Plan Agree with the blood transfusion Would recommend IV Protonix and octreotide infusion Consent obtained for fiberoptic esophagogastroduodenoscopy with possible biopsy possible therapeutic intervention under intravenous moderate sedation Recommend therapeutic ultrasound-guided paracentesis and send the fluid for complete analysis Will follow the patient Advised complete abstinence from alcohol Thank you very much for the opportunity to participate in the care of this patient Time Spent With Patient Time: Total time spent is greater than 50% in coordination of care (as documented) at patient's floor/unit and/or counseling patient:
--- NOTE | 2025-07-05 22:00 | PC.NURSE ---
patients platelets dropped under 100, notified Dr. Mojica and he said to hold heparin
[2025-07-06] VITALS (10 sets, daily range): BP systolic 96–116; BP diastolic 59–76; PULSE 66–78; RESP 15–19; TEMP 36.2–36.7; O2SAT 91–97; BMI 19.7
[2025-07-06] MEDS: MG HYD/AL HYD/SIME (Maalox Reg) SUSP 30 ML UDC PO ×5 (01:02→21:24)
[2025-07-06 05:28] LABS: Basophils # (Auto) 0.1 Thou/mm3 (0.0-0.2); Basophils % (Auto) 1 % (0-2.5); Eosinophils # (Auto) 0.3 Thou/mm3 (0.0-0.5); Eosinophils % (Auto) 3 % (0-10); Hematocrit 25.3 % (36.0-46.0); Immature Granulocytes Auto 0.06 Thou/mm3 (0.00-0.00); Lymphocytes # (Auto) 2.1 Thou/mm3 (1.0-4.8); Lymphocytes % (Auto) 19 % (10-50); Mean Corpuscular HGB Conc 31.6 g/dl (31.0-37.0); Mean Corpuscular Hemoglobin 27.8 pg (25.0-35.0); Mean Corpuscular Volume 88 fL (80-100); Monocytes # (Auto) 1.7 Thou/mm3 (0.0-0.8); Monocytes % (Auto) 16 % (0-12); Neutrophils # (Auto) 6.5 Thou/mm3 (1.8-7.7); Neutrophils % (Auto) 61 % (37-80); Nucleated Red Blood Cell # 0.00 Thou/mm3 (0.00-0.00); Nucleated Red Blood Cell % 0 /100 WBC (0); Platelet Count 84 Thou/mm3 (140-440); RDW Standard Deviation 60.2 fL (36.4-46.3); Red Blood Count 2.88 Miln/mm3 (4.00-5.20); White Blood Count 10.7 Thou/mm3 (3.6-11.0)
[2025-07-06] MEDS: SUCRALFATE SUSP 1 GM/10 ML UDC PO ×4 (05:31→20:00)
[2025-07-06 05:41] LABS: Hemoglobin 8.0 g/dL (12.0-16.0)
[2025-07-06 05:52] LABS: Alanine Aminotransferase 17 U/L (10-49); Albumin, Serum 2.5 gm/dL (3.5-5.0); Albumin/Globulin Ratio 0.8 (1.2-2.2); Alkaline Phosphatase 131 U/L (46-116); Anion Gap 6 (7-16); Aspartate Amino Transferase 76 U/L (0-34); BUN/Creatinine Ratio 8 Ratio (12-20); Bilirubin,Total 4.7 mg/dL (0.3-1.2); Blood Urea Nitrogen 5 mg/dL (9-23); Calcium 7.8 mg/dL (8.3-10.6); Calcium (Corrected) 9.0 mg/dL (8.5-10.1); Carbon Dioxide 33.0 mMol/L (20.0-31.0); Chloride 100 mMol/L (98-107); Creatinine (Component) 0.6 mg/dL (0.6-1.3); Estimated Creatinine Clearance 95.0 mL/min (>60); Globulin 3.2 gm/dL (2.3-3.5); Glucose 117 mg/dL (74-106); Magnesium 1.9 mg/dL (1.6-2.6); Osmolality,Calculated 275 (275-295); Phosphorous 2.1 mg/dL (2.4-5.1); Potassium 3.9 mMol/L (3.4-5.1); Sodium 139 mMol/L (136-145); Total Protein 5.7 gm/dL (5.7-8.2); eGFR > 60 See Note
--- NOTE | 2025-07-06 06:05 | PC.NURSE ---
Dr. Mojica notified regarding platelets of 84 and this RN inquired whether to give 0600 dose of heparin or not and he said that it was okay to admin med.
[2025-07-06] MEDS: HEPARIN SOD INJ 5000 UNIT/ML VIAL SC ×2 (06:11→21:24)
[2025-07-06] MEDS: OCTREOTIDE ACET INJ 1,000 MCG in SODIUM CHLORIDE 0.9% 100 ML 5.1 MCG IV (07:55)
[2025-07-06] MEDS: LACTULOSE SYRUP 20 GM/30 ML UDC PO ×2 (08:19→20:40)
--- NOTE | 2025-07-06 08:20 | PD.RESDS ---
Planned Discharge Date 07/06/25 DS: Providers Provider Date of admission: 06/30/25 21:59 Primary care physician: Valerio Powell MD Admitting Provider: Shaheen Briseno MD Attending Provider on Admission: Yohan Andrews MD Consults: 06/30/25 20:45 Consult to Gastroenterology Stat Comment: Liver failure Consulting Provider: Juan Ramon Goncalves 07/01/25 01:44 Referral Physical Therapy Routine Comment: Physician Instructions: Attending Provider on DC: Bhargav Murry MD Discharging Provider: Bhargav Murry MD Hospital Course Hospital Course Hospital course: Patient evaluated Doing well on IV Bumex BUN/creatinine staying stable BUN 5 and creatinine 0.6 Hemoglobin hematocrit 8.4 and 26.1 Time Spent with Patient Time attestation: Total time spent providing and/or coordinating discharge services: Exam Vital Signs Temp Pulse Resp BP Pulse Ox O2 Del Method O2 Flow Rate 97.9 F 78 19 106/65 97 Room Air 1 07/06/25 04:00 07/06/25 08:00 07/06/25 04:00 07/06/25 04:00 07/06/25 04:00 07/06/25 04:00 07/06/25 04:00 Discharge Plan Plan Patient Disposition: HOME (Self Care) Patient condition on transfer: Stable Care Plan Goals: Instructions: -Please take Sprionolactone 50 mg once daily and Furosemide 20 mg once daily for your cirrhosis. -Lactulose 20 gm orally twice daily to prevent concussion given history of cirrhosis -Continue Sucralfate and for ulcers -Please follow up with your primary care provider to send out a gastroenterology referral -Please follow up with your primary care provider within one week of discharge -If your symptoms worsen,please seek immediate medical attention and return to your nearest emergency room -If you do not have a primary care provider, you may follow up at the [facility] at [address], [place] [address], Prescriptions/Referrals Prescriptions/Med Rec: New lactulose 10 gram/15 mL solution 20 g PO BID 30 Days Qty: 1800 0RF sucralfate 100 mg/mL Suspension 1 g PO QID 90 Days Qty: 3600 0RF thiamine mononitrate (vit B1) 100 mg Tablet 100 mg PO QDAY 14 Days Qty: 14 0RF multivitamin with folic acid [Tab-A-Carol] 400 mcg Tablet 1 tab PO QDAY 30 Days Qty: 30 0RF spironolactone 50 mg tablet 50 mg PO QAM 90 Days Qty: 90 0RF furosemide [Lasix] 20 mg tablet 20 mg PO QAM 90 Days Qty: 90 0RF Discontinued ibuprofen 600 mg tablet 600 mg PO Q8H PRN (Reason: fever or pain) Qty: 30 0RF Referrals: Valerio Powell MD [Primary Care Provider, Family Practice] Patient/Caregiver Discharge Instructions Education Materials: Esophageal Varices, Alcohol Addiction Print Language: Swedish Stand Alone Forms: Corrine Award Info., Patient Portal Info Letter
[2025-07-06] MEDS: THIAMINE 100 MG TABLET PO (08:22)
[2025-07-06] MEDS: PANTOPRAZOLE 40 MG TABLET PO ×2 (08:22→20:00)
[2025-07-06] MEDS: MULTIVITAMINS TABLET 1 TAB PO (08:22)
[2025-07-06] MEDS: FOLIC ACID 1 MG TABLET PO (08:23)
[2025-07-06] MEDS: MIDODRINE 5 MG TABLET 10 MG PO ×2 (09:02→21:22)
[2025-07-06] MEDS: NAPH,KPH MBDB 1 PACKET (1.5 GM) PO (09:03)
[2025-07-06] MEDS: ALBUMIN HUMAN-KJDA 25% IVPB 25 GM/100 ML BTL IV ×2 (09:03→09:05)
[2025-07-06 16:48] LABS: Albumin, Serum 3.0 gm/dL (3.5-5.0)
--- NOTE | 2025-07-06 16:50 | ESOP_ITS ---
<Statement entered by Yg Carmichael MD - 07/09/25 12:14> Attending Attestation: I was present for the entire procedure. No immediate complications. Patient tolerated procedure well. Minimal blood loss. PROCEDURES: Procedure Date / Time 07/06/25 1650 Procedure Narrative Procedure Narrative: INDICATION: Ascites PROCEDURE RESIDENT SERVICES DIRECTOR: Dr. Murry ATTENDING PHYSICIAN: Dr. Carmichael Ultrasound used to chucho location: Y CONSENT: During the informed consent discussion regarding the procedure, or treatment, I explained the following to the patient: a. Nature of the procedure or treatment and who will perform the procedure or treatment. b. Necessity for procedure and the possible benefits. c. Risks and complications (most common and serious). d. Alternative treatments and the risks, benefits and side effects of each (including no treatment). e. Likelihood of the patient achieving his/her goals without this procedure and surgery treatment. f. Problems that might occur during the recuperation. g. Conflicts of interest, if any PROCEDURE SUMMARY: A time-out was performed. My hands were washed immediately prior to the procedure. I wore a surgical cap, mask with protective eyewear, sterile gown and sterile gloves throughout the procedure. The area was cleansed and draped in usual sterile fashion using chlorhexidine scrub. Anesthesia was achieved with 1% lidocaine. The right lower quadrant of the abdomen was prepped and draped in a sterile fashion using chlorhexidine scrub. 1% lidocaine was used to numb the skin, soft tissue and peritoneum. The paracentesis catheter was inserted and advanced with negative pressure until straw colored fluid was aspirated. Approximately 50 mL of ascitic fluid was collected and sent for laboratory analysis. The catheter was then connected to the vaccutainer and 2.5 liters of additional ascitic fluid were drained. The catheter was removed and no leaking was noted. A bandaid was placed over the puncture wound. The patient tolerated the procedure well without any immediate complications. Estimated blood loss was 0. Procedure was supervised with attending Dr. Carmichael and supervising resident Dr. Bond. Note written by Bhargav Murry MD PGY-1
--- NOTE | 2025-07-06 16:54 | ESPR_ITS ---
<Statement entered by Adrián Bond MD - 07/06/25 19:28> I saw and examined patient personally and supervised PGY 1 resident, Dr. Murry with formulating a management plan. I agree with the documentation with the exceptions as listed below. Patient underwent paracentesis today with fluid analysis significant for SAAG of 1.8 and negative for SBP. Currently on octreotide infusion due to complete at 3:55 AM on 07/07. Once clinically stable, anticipate discharge within next 24 hours. Plan of care discussed with Attending Dr. Tremayne Bond MD PGY 2 Disclaimer: This note was dictated by speech recognition. Minor errors in electrical maintenance engineer may be present due to voice recognition software. Documentation for date of: 07/06/25 Subjective Subjective Interval history: Patient examined bedside, labs reviewed. Octreotide continuing until past midnight tonight plan to DC tomorrow morning. Today patient consented to a paracentesis where 2.5L of fluid were drained from the right side of the abdomen. Patient tolerated the procedure well. No complaints, new symptoms, feels as though she is much better and ready to go home tomorrow. Exam Vital Signs Temp Pulse Resp BP Pulse Ox O2 Del Method O2 Flow Rate 97.8 F 77 17 110/76 92 L Room Air 1 07/06/25 16:00 07/06/25 16:00 07/06/25 16:00 07/06/25 16:00 07/06/25 16:00 07/06/25 16:00 07/06/25 16:00 Narrative Exam General: Lying in bed comfortable NAD Eye: PERRL, EOMI, sleral icterus HENT: Normocephalic, atraumatic, normal hearing, moist oral mucosa Neck: Supple, non-tender, no JVD, no lymphadenopathy Lungs: Clear to auscultation bilaterally, non-labored respirations, symmetric chest rise, no use of accessory muscles Heart: Normal S1 and S2, no S3 or S4 appreciated. Normal rate and regular rhythm, no murmurs, rubs gallops. No pedal edema Abdomen: NBS, NTTP, soft, distended Musculoskeletal: Normal range of motion and strength Skin: No rashes or abrasions noted. Neurologic: Alert, awake and oriented x3. CN II-XII grossly intact. No focal neuro deficits. No asterixis Psychiatric: Appropriate mood and affect Objective Labs 07/07/25 05:11 07/07/25 05:11 Labs: Laboratory Results - last 24 hr 07/06/25 04:44 WBC 10.7 RBC 2.88 L Hgb 8.0 L Hct 25.3 L MCV 88 MCH 27.8 MCHC 31.6 RDW Std Deviation 60.2 H Plt Count 84 L Neut % (Auto) 61 Lymph % (Auto) 19 [place] % (Auto) 16 H Eos % (Auto) 3 Baso % (Auto) 1 Neut # (Auto) 6.5 Lymph # (Auto) 2.1 [place] # (Auto) 1.7 H Eos # (Auto) 0.3 Baso # (Auto) 0.1 Immature Gran # (Auto) 0.06 H Absolute Nucleated RBC 0.00 Immature Gran % 1 H Nucleated RBC % 0 Sodium 139 Potassium 3.9 Chloride 100 Carbon Dioxide 33.0 H Anion Gap 6 L BUN 5 L Creatinine 0.6 Estim Creat Clear Calc 95.0 eGFR > 60 BUN/Creatinine Ratio 8 L Glucose 117 H Calculated Osmolality 275 Calcium 7.8 L Corrected Calcium 9.0 Phosphorus 2.1 L Magnesium 1.9 Total Bilirubin 4.7 H AST 76 H ALT 17 Alkaline Phosphatase 131 H Total Protein 5.7 Albumin 2.5 L Globulin 3.2 Albumin/Globulin Ratio 0.8 L ABG Interpretation ABG results: 06/30/25 18:31 VBG pH 7.50 VBG pCO2 26 L VBG pO2 47 VBG Base Excess -3 Quality Measures Quality Measures none Assessment & Plan Assessment Current Active Medications: Generic Name Dose Route Start Last Admin Trade Name Myrna PRN Reason Stop Dose Admin Acetaminophen 650 mg 06/30/25 23:15 07/02/25 22:31 Acetaminophen 325 Mg Tablet PO 07/30/25 23:14 650 mg Q8H PRN Administration Fever >100.3 or pain 1-3 Al Hydrox/Mg Hydrox/Simethicone 30 ml 07/01/25 22:00 07/06/25 13:48 Mg Hyd/Al Hyd/Will (Maalox Reg) Susp 30 Ml Udc PO 07/31/25 21:59 30 ml Q4HR CRISTOPHER Administration Bumetanide 1 mg 07/05/25 09:00 07/05/25 09:50 Bumetanide Inj 0.25 Mg/Ml Vial 4 Ml IVP 08/04/25 08:59 1 mg On Hold: 07/05/25 09:53 QDAY CRISTOPHER Administration Folic Acid 1 mg 07/06/25 09:00 07/06/25 08:23 Folic Acid 1 Mg Tablet PO 08/05/25 08:59 1 mg QDAY CRISTOPHER Administration Heparin Sodium (Porcine) 5,000 unit 06/30/25 22:15 07/06/25 13:50 Heparin Sod Inj 5000 Unit/Ml Vial SC 07/14/25 22:14 Not Given Q8HR CRISTOPHER Octreotide Acetate 1,000 mcg/ 102 mls @ 5.1 mls/hr 07/01/25 19:31 07/06/25 07:55 Sodium Chloride IV 07/06/25 19:31 50 mcg/hr .Q20H CRISTOPHER 5.1 mls/hr Protocol Administration 50 MCG/HR Albumin Human 25 gm in 100 mls @ 100 mls/hr 07/06/25 08:22 07/06/25 09:05 Albuminex 25% Ivpb IV 08/05/25 08:21 100 mls/hr QDAY CRISTOPHER Administration Lactulose 20 gm 07/05/25 09:00 07/06/25 08:19 Lactulose Syrup 20 Gm/30 Ml Udc PO 08/04/25 08:59 20 gm BID CRISTOPHER Administration Protocol Midodrine 10 mg 07/06/25 14:00 07/06/25 13:50 Midodrine 5 Mg Tablet PO 08/05/25 13:59 Not Given TID CRISTOPHER Multivitamins 1 tab 07/06/25 09:00 07/06/25 08:22 Multivitamins Tablet PO 08/05/25 08:59 1 tab QDAY CRISTOPHER Administration Ondansetron HCl 4 mg 06/30/25 21:59 Ondansetron Inj 2 Mg/Ml Inj 2 Ml IVP 07/30/25 21:58 Q6H PRN NAUSEA OR VOMITING Protocol Pantoprazole Sodium 40 mg 07/01/25 21:00 07/06/25 08:22 Pantoprazole 40 Mg Tablet PO 07/31/25 20:59 40 mg BID CRISTOPHER Administration Protocol Promethazine HCl/Dextromethorphan 10 ml 07/04/25 05:30 07/04/25 06:08 Promethazine/Dm Syrup 5 Ml Dose PO 08/03/25 05:29 10 ml Q4HR PRN Administration COUGH Protocol Spironolactone 100 mg 07/01/25 09:00 07/06/25 08:22 Spironolactone 25 Mg Tablet PO 07/31/25 08:59 Not Given DAILY CRISTOPHER Sucralfate 1 gm 07/01/25 21:00 07/06/25 12:07 Sucralfate Susp 1 Gm/10 Ml Udc PO 07/31/25 20:59 1 gm QID CRISTOPHER Administration Thiamine HCl 100 mg 07/06/25 09:00 07/06/25 08:22 Thiamine 100 Mg Tablet PO 08/05/25 08:59 100 mg QDAY CRISTOPHER Administration Plan Ms. Hand is a 40 y/o Syriac-speaking female with no PMHx who presents with abdominal pain, LE edema b/l and distension x4 days. Admitted for acutely decompensated ESLD, c/f GI bleed. Continue octreotide until 07/06. 2.5 L of ascitic straw color fluid removed via paracentesis today. #Acute anemia 2/2 #Upper GI bleed #Esophageal varices Grade I #Gastric ulcer, nonbleeding Ricardo Class III Hemoglobin of 5.1 on admission 9.2 after 2 units of RBCs transfused. FOBT+. EGD shows Grade I esophageal varices and nonbleeding cratered gastric ulcer (Class III). - Ceftriaxone 1 g IV daily for SBP prophylaxis - DC'd 07/05 - Pantoprazole 40 mg IV BID for GI bleed - Octreotide 50 mcg load + 50 mcg/hr gtt IV for suspected GI bleed given Hgb 5.1 - GI consulted completed EGD 07/01 - CTM for s/sx GI bleed, daily CBC #Acutely decompensated End-stage liver disease #Thrombocytopenia #Hyperbilirubinemia #Moderate ascites #Anasarca Initial presentation: Diffuse abdominal pain, abd distension x4 days, spider angiomata, telangiectasia, jaundice, scleral icterus, caput medusae, b/l LE edema 2+, ascites. AOx3, no asterixis. Chronic EtOH and Tylenol use. Ammonia: 50. Albumin: 2.7. Hepatitis panel: non-reactive. Kidney function: eGFR >60. Elevated AST, alk phos. ALT WNL. Synthetic liver dysfunction present (PT 15.6, INR 1.5). Abd US: Primary hepatocellular disease vs cirrhosis. CT a/p w/: cirrhosis, ascites, anasarca. Meds given in ED: Lasix 40 mg IV, Zofran 4 mg IV, KCl 40 mEq IV, Ceftriaxone 1g IV. Ordered 2U pRBC, pending transfusion. MELD-Na: 26 --> 19.6% est 3 month mortality. Child-[place]: 11 --> class C, life expectancy 1-3 years. S/p paracentesis 3.6L of fluid removed. DDX cause: GI bleed, EtOH, supratherapeutic dosing of Tylenol Plan: - Diet added multivitamin, 1g folate, 100mg thiamine - Fluid restriction 1.5L - Lactulose 20 mg PO BID (Hold dose for >3BM in day) - Lasix 40 mg IV daily - DC'd - Bumex 1mg IVP QD - Spironolactone 100 mg PO daily - Rifaximin 550 mg PO BID - DC'd 07/05 - Bumex 1g IV QD - 2g Sodium diet - Hbg A1c: 4.4 - Large volume paracentesis yielded 3.6 L - Paracentesis fluid analysis: not viable for analysis, repeat 07/06. - Daily weights - Transfuse pRBC if hgb <7 - Transfuse plt if plt <10 to prevent spontaneous hemorrhage - Limit Acetaminophen use <=2-3 g/day for mild 1-3 pain (650 mg PO q8h). Toradol 15 mg IV q6h PRN pain 4-7. Can do dilaudid 0.5 mg q6h if pain 8-10. Avoid NSAIDs 2/2 risk of hepatorenal syndrome. #Hypercholesterolemia #Hypertriglyceridemia T, cholesterol: 245 LDL: 196. Statin not used due to liver issues. Plan: -Consider fibrate outpatient #Normocytic normochromic anemia i/s/o acute decompensated ESLD, c/f GI bleed Pt denies melena, hematochezia, hematemesis In ED, pRBC transfusion, post-transfusion H&H Current: Hgb 9.5, HCT 28.3 Plan: - CTM for s/sx GI bleed, daily CBC #Small left pleural effusion i/s/o ESLD Seen on CXR 06/30 spO2 appropriate on RA, no respiratory distress Plan: - Diuretics management as above #Gallbladder sludge Seen on abd US No cholelithiasis, no cholecystitis Plan: - CTM for worsening abd pain #Hyponatremia, improved i/s/o ESLD Na 120 --> 134 Plan: - Diuretics management as above #EtOH use disorder Drinks 3 beers [place] (normal sized cans) per day, EtOH use exacerbated by recent of her baby Plan: - Will need social services technician referral - Counseled patient on EtOH cessation extensively Checklist Dispo: Tele, pending discharge Diet: Clears Bowel Reg: lactulose 20 g PO BID VTE ppx: heparin subQ (plt 102) GI ppx: Pantoprazole 40 mg IV Pain mgmt: Limit Acetaminophen use <=2-3 g/day for mild 1-3 pain (650 mg PO q8h). Toradol 15 mg IV q6h PRN pain 4-7. Can do dilaudid 0.5 mg q6h if pain 8- 10. Code status: Full Case was discussed with Attending Dr. Casper, and Senior Resident Dr. Ronda Murry MD PGY-1 Attending Provider Attestation/Addendum I have examined the patient, reviewed labs and imaging findings, discussed the case with the resident(s), and reviewed entered orders. I agree with the plan of care as outlined in this note. Dr. Tremayne MD
[2025-07-06 17:06] LABS: Albumin, Peritoneal Fluid 1.2 gm/dL; Amylase,Peritoneal Fluid 75 IU/L; Glucose,Peritoneal Fluid 139 mg/dL; LDH,Peritoneal Fluid 77 IU/L; Protein Total,Peritoneal Fluid 2 g/dL
[2025-07-06 17:12] LABS: Peritoneal Fluid WBC 95 /cmm
[2025-07-06 17:24] LABS: Peritoneal Fluid Appearance Hazy; Peritoneal Fluid Color Yellow; Peritoneal Fluid Mononuclear 82 %; Peritoneal Fluid Polynuclear 18 %; RBC,Peritoneal Fluid 1000 /cmm
--- NOTE | 2025-07-06 20:35 | PD.IMPROG ---
Documentation for date of: 07/06/25 Subjective Subjective Interval history: Patient underwent a large-volume paracentesis 2.5 L removed patient will be ending her 5 days of octreotide tonight Patient should go home on the current regimen of Bumex and spironolactone and she will be closely followed in the [facility] clinic for renal function and LFTs Exam Vital Signs Temp Pulse Resp BP Pulse Ox O2 Del Method O2 Flow Rate 97.1 F 71 15 100/60 94 L Room Air 1 07/06/25 20:00 07/06/25 20:00 07/06/25 20:00 07/06/25 20:00 07/06/25 20:00 07/06/25 20:00 07/06/25 16:00 Objective Labs 07/06/25 04:44 07/06/25 04:44 Labs: Laboratory Results - last 24 hr 07/06/25 07/06/25 07/06/25 04:44 15:45 15:58 WBC 10.7 RBC 2.88 L Hgb 8.0 L Hct 25.3 L MCV 88 MCH 27.8 MCHC 31.6 RDW Std Deviation 60.2 H Plt Count 84 L Neut % (Auto) 61 Lymph % (Auto) 19 [place] % (Auto) 16 H Eos % (Auto) 3 Baso % (Auto) 1 Neut # (Auto) 6.5 Lymph # (Auto) 2.1 [place] # (Auto) 1.7 H Eos # (Auto) 0.3 Baso # (Auto) 0.1 Immature Gran # (Auto) 0.06 H Absolute Nucleated RBC 0.00 Immature Gran % 1 H Nucleated RBC % 0 Sodium 139 Potassium 3.9 Chloride 100 Carbon Dioxide 33.0 H Anion Gap 6 L BUN 5 L Creatinine 0.6 Estim Creat Clear Calc 95.0 eGFR > 60 BUN/Creatinine Ratio 8 L Glucose 117 H Calculated Osmolality 275 Calcium 7.8 L Corrected Calcium 9.0 Phosphorus 2.1 L Magnesium 1.9 Total Bilirubin 4.7 H AST 76 H ALT 17 Alkaline Phosphatase 131 H Total Protein 5.7 Albumin 2.5 L 3.0 L D Globulin 3.2 Albumin/Globulin Ratio 0.8 L Peritoneal Color Yellow Peritoneal Appearance Hazy Peritoneal WBC 95 Peritoneal RBC 1000 [place] Polynucl WBCs 18 [place] Mononucl WBCs 82 Peritoneal Tot Protein 2 Peritoneal Albumin 1.2 Peritoneal LDH 77 Peritoneal Glucose 139 Peritoneal Amylase 75 Impressions Impression: Decompensated liver disease mucosal oozing of blood due to advanced portal hypertension Intractable ascites requiring recurrent paracentesis Plan Please have the resident call me prior to discharge tomorrow to discuss discharge planning ABG Interpretation ABG results: 06/30/25 18:31 VBG pH 7.50 VBG pCO2 26 L VBG pO2 47 VBG Base Excess -3 Assessment & Plan A&P Narrative # End-stage liver disease in the setting of excessive alcohol abuse with advanced portal hypertension and intractable ascites anasarca and a GI bleed Plan Agree with the blood transfusion Would recommend IV Protonix and octreotide infusion Consent obtained for fiberoptic esophagogastroduodenoscopy with possible biopsy possible therapeutic intervention under intravenous moderate sedation Recommend therapeutic ultrasound-guided paracentesis and send the fluid for complete analysis Will follow the patient Advised complete abstinence from alcohol Thank you very much for the opportunity to participate in the care of this patient Time Spent With Patient Time: Total time spent is greater than 50% in coordination of care (as documented) at patient's floor/unit and/or counseling patient:
[2025-07-06] MEDS: ACETAMINOPHEN 325 MG TABLET 650 MG PO (20:41)
[2025-07-07] VITALS (9 sets, daily range): BP systolic 100–148; BP diastolic 55–73; PULSE 48–71; RESP 15–17; TEMP 36.2–36.8; O2SAT 93–95
[2025-07-07] MEDS: MG HYD/AL HYD/SIME (Maalox Reg) SUSP 30 ML UDC PO ×3 (01:53→10:48)
--- NOTE | 2025-07-07 04:10 | PC.NURSE ---
Dr. Mojica notified regarding patient heart rate dropping to 48 but not sustaining and going back in the 50s, patient asymptomatic. No new orders at this time.
[2025-07-07] MEDS: HEPARIN SOD INJ 5000 UNIT/ML VIAL SC (05:19)
[2025-07-07] MEDS: SUCRALFATE SUSP 1 GM/10 ML UDC PO (05:20)
[2025-07-07] MEDS: MIDODRINE 5 MG TABLET 10 MG PO (05:23)
[2025-07-07 05:55] LABS: Basophils # (Auto) 0.1 Thou/mm3 (0.0-0.2); Basophils % (Auto) 1 % (0-2.5); Eosinophils # (Auto) 0.2 Thou/mm3 (0.0-0.5); Eosinophils % (Auto) 2 % (0-10); Hematocrit 25.0 % (36.0-46.0); Immature Granulocytes Auto 0.05 Thou/mm3 (0.00-0.00); Lymphocytes # (Auto) 2.3 Thou/mm3 (1.0-4.8); Lymphocytes % (Auto) 23 % (10-50); Mean Corpuscular HGB Conc 31.2 g/dl (31.0-37.0); Mean Corpuscular Hemoglobin 28.0 pg (25.0-35.0); Mean Corpuscular Volume 90 fL (80-100); Monocytes # (Auto) 1.6 Thou/mm3 (0.0-0.8); Monocytes % (Auto) 16 % (0-12); Neutrophils # (Auto) 5.9 Thou/mm3 (1.8-7.7); Neutrophils % (Auto) 58 % (37-80); Nucleated Red Blood Cell # 0.00 Thou/mm3 (0.00-0.00); Nucleated Red Blood Cell % 0 /100 WBC (0); Platelet Count 89 Thou/mm3 (140-440); RDW Standard Deviation 64.2 fL (36.4-46.3); Red Blood Count 2.79 Miln/mm3 (4.00-5.20); White Blood Count 10.1 Thou/mm3 (3.6-11.0)
[2025-07-07 06:08] LABS: Hemoglobin 7.8 g/dL (12.0-16.0)
[2025-07-07 06:27] LABS: Alanine Aminotransferase 17 U/L (10-49); Albumin, Serum 2.5 gm/dL (3.5-5.0); Albumin/Globulin Ratio 0.8 (1.2-2.2); Alkaline Phosphatase 134 U/L (46-116); Anion Gap 8 (7-16); Aspartate Amino Transferase 75 U/L (0-34); BUN/Creatinine Ratio 10 Ratio (12-20); Bilirubin,Total 4.9 mg/dL (0.3-1.2); Blood Urea Nitrogen 6 mg/dL (9-23); Calcium 8.1 mg/dL (8.3-10.6); Calcium (Corrected) 9.3 mg/dL (8.5-10.1); Carbon Dioxide 31.5 mMol/L (20.0-31.0); Chloride 102 mMol/L (98-107); Creatinine (Component) 0.6 mg/dL (0.6-1.3); Estimated Creatinine Clearance 90.6 mL/min (>60); Globulin 3.0 gm/dL (2.3-3.5); Glucose 108 mg/dL (74-106); Magnesium 1.8 mg/dL (1.6-2.6); Osmolality,Calculated 279 (275-295); Phosphorous 2.4 mg/dL (2.4-5.1); Potassium 4.0 mMol/L (3.4-5.1); Sodium 141 mMol/L (136-145); Total Protein 5.5 gm/dL (5.7-8.2); eGFR > 60 See Note
[2025-07-07] MEDS: ALBUMIN HUMAN-KJDA 25% IVPB 25 GM/100 ML BTL IV (09:06)
[2025-07-07] MEDS: FOLIC ACID 1 MG TABLET PO (09:24)
[2025-07-07] MEDS: MULTIVITAMINS TABLET 1 TAB PO (09:24)
[2025-07-07] MEDS: THIAMINE 100 MG TABLET PO (09:24)
[2025-07-07] MEDS: PANTOPRAZOLE 40 MG TABLET PO (09:25)
[2025-07-07] MEDS: SPIRONOLACTONE 25 MG TABLET 50 MG PO (09:26)
[2025-07-07] MEDS: LACTULOSE SYRUP 20 GM/30 ML UDC PO (09:26)
--- NOTE | 2025-07-07 09:27 | ESDS_ITS ---
<Statement entered by Adrián Bond MD - 07/08/25 15:20> I saw and examined patient personally and supervised PGY 1 resident, Dr. Murry with formulating a management plan. I agree with the documentation with the exceptions as listed below. Patient was admitted for acute blood loss anemia secondary to esophageal varices. During hospitalization she received 2 units PRBC infusion, EGD. EGD showed grade 1 esophageal varices and gastric ulcer. She also underwent 2 paracentesis which drained 3.6 and 2.4 L respectively. Fluid analysis was negative for SBP and confirmed portal hypertension as the etiology. Patient was also treated with 5 days of octreotide infusion and had no further episodes of bleeding while in hospital. Patient was also extensively counseled on alcohol cessation and strongly recommended to follow-up with her primary care doctor for a referral to a aircraft cylinder mechanic for evaluation for liver transplant. At this point all patient's labs are returning to baseline and she is clinically stable and fit for discharge to home. Plan of care discussed with Attending Dr. Tremayne Bond MD PGY 2 Disclaimer: This note was dictated by speech recognition. Minor errors in material inspector may be present due to voice recognition software. Planned Discharge Date 07/07/25 DS: Providers Provider Date of admission: 06/30/25 21:59 Primary care physician: Valerio Powell MD Admitting Provider: Shaheen Briseno MD Attending Provider on Admission: Yohan Andrews MD Consults: 06/30/25 20:45 Consult to Gastroenterology Stat Comment: Liver failure Consulting Provider: Juan Ramon Goncalves 07/01/25 01:44 Referral Physical Therapy Routine Comment: Physician Instructions: Attending Provider on DC: Von Casper MD Discharging Provider: Von Casper MD DS: Diagnosis Problem List Completed Was Problem List Reviewed/Reconciled?: Yes Hospital Course Hospital Course Hospital course: Ms. Hand is a 40 y/o Macedonian-speaking female with no PMHx who presents with abdominal pain, LE edema b/l and distension x4 days. Admitted for acutely decompensated ESLD, c/f GI bleed. In the ED patient was afebrile, VSS. Labs significant for hgb 5.1, HCT 15.8, plt 102. Na 120, Cl 88, Ca 8.2, Albumin 2.7, AST 86, alk phos 200, ALT WNL, total bili 3.5. Ammonia 50. BNP 189. Lipase 60. UA 3+ blood, +LE, RBC 70, WBC 22. CXR showed early PNA left base, small L pleural effusion. Abd US showed gallbladder sludge, no cholelithiasis or cholecystitis; primary hepatocellular disease vs cirrhosis. Moderate ascites. CT a/p w/ showed cirrhosis, ascites, anasarca. No bowel obstruction or appendicitis. Meds given in ED: Lasix 40 mg IV, Zofran 4 mg IV, KCl 40 mEq IV, Ceftriaxone 1g IV. 2 units of pRBCs given for anemia. Paracentesis removed 3.6L of fluid. In the hospital her upper GI bleed was managed with ceftriaxone 1g IV for SBP prophylaxis, proton pump inhibitors. GI was consulted and EGD demonstrated Grade I esophageal varices and nonbleeding cratered gastric ulcer (Class III). Octreotide drip was initiated. Her end stage liver disease was managed with fluid restriction 1.5L, lactulose 20 mg PO BID, lasix 40 mg IV daily, bumex 1mg IVP QD, spironolactone 100 mg PO daily, Rifaximin 550 mg and 2g Sodium diet. 2.5 L of ascitic straw color fluid removed via paracentesis. Once her octreotide drip was completed on 07/07 patient was deemed safe to discharge home. Discharge Instructions: -Please take Sprionolactone 50 mg once daily and Furosemide 20 mg once daily for your cirrhosis. -Lactulose 20 gm orally twice daily to prevent concussion given history of cirrhosis -Midodrine 5 mg three times as day NEEDED, if blood pressure less than 110. Please check your blood pressure daily. -Continue Sucralfate and for ulcers -Please follow up with your primary care provider to send out a gastroenterology referral -Please follow up with your primary care provider within one week of discharge -If your symptoms worsen,please seek immediate medical attention and return to your nearest emergency room -If you do not have a primary care provider, you may follow up at the [facility] [address], [place] [address], #Acute anemia 2/2 #Upper GI bleed #Esophageal varices Grade I #Gastric ulcer, nonbleeding Ricardo Class III #Acutely decompensated End-stage liver disease #Thrombocytopenia #Hyperbilirubinemia #Moderate ascites #Anasarca #Hypercholesterolemia #Hypertriglyceridemia #Normocytic normochromic anemia #Small left pleural effusion #Gallbladder sludge #Hyponatremia #EtOH use disorder Patient's plan and care discussed with my attending, Dr. Casper, and supervising resident MD Bhargav Hou MD Internal Medicine PGY-1 Status at Discharge Overall status at discharge: patient is back to baseline Time Spent with Patient Time attestation: Total time spent providing and/or coordinating discharge services: Time spent: Greater than 30 minutes Exam Vital Signs Temp Pulse Resp BP Pulse Ox O2 Del Method O2 Flow Rate 98.2 F 55 L 15 148/73 H 94 L Room Air 1 07/07/25 07:55 07/07/25 07:55 07/07/25 07:55 07/07/25 07:55 07/07/25 07:55 07/07/25 07:55 07/06/25 16:00 Narrative Exam General: Lying in bed comfortable NAD Eye: PERRL, EOMI, sleral icterus HENT: Normocephalic, atraumatic, normal hearing, moist oral mucosa Neck: Supple, non-tender, no JVD, no lymphadenopathy Lungs: Clear to auscultation bilaterally, non-labored respirations, symmetric chest rise, no use of accessory muscles Heart: Normal S1 and S2, no S3 or S4 appreciated. Normal rate and regular rhythm, no murmurs, rubs gallops. No pedal edema Abdomen: NBS, NTTP, soft, nondistended Musculoskeletal: Normal range of motion and strength Skin: No rashes or abrasions noted. Neurologic: Alert, awake and oriented x3. CN II-XII grossly intact. No focal neuro deficits. No asterixis Psychiatric: Appropriate mood and affect Discharge Plan Plan Patient Disposition: HOME (Self Care) Patient condition on transfer: Stable Care Plan Goals: Instructions: -Please take Sprionolactone 50 mg once daily and Furosemide 20 mg once daily for your cirrhosis. -Lactulose 20 gm orally twice daily to prevent concussion given history of cirrhosis -Midodrine 5 mg three times as day NEEDED, if blood pressure less than 110. Please check your blood pressure daily. -Continue Sucralfate and for ulcers -Please follow up with your primary care provider to send out a gastroenterology referral -Please follow up with your primary care provider within one week of discharge -If your symptoms worsen,please seek immediate medical attention and return to your nearest emergency room -If you do not have a primary care provider, you may follow up at [facility] [address], [place] [address], Prescriptions/Referrals Prescriptions/Med Rec: New lactulose 10 gram/15 mL solution 20 g PO BID 30 Days Qty: 1800 0RF sucralfate 100 mg/mL Suspension 1 g PO QID 90 Days Qty: 3600 0RF thiamine mononitrate (vit B1) 100 mg Tablet 100 mg PO QDAY 14 Days Qty: 14 0RF multivitamin with folic acid [Tab-A-Carol] 400 mcg Tablet 1 tab PO QDAY 30 Days Qty: 30 0RF spironolactone 50 mg tablet 50 mg PO QAM 90 Days Qty: 90 0RF furosemide [Lasix] 20 mg tablet 20 mg PO QAM 90 Days Qty: 90 0RF midodrine 5 mg tablet 5 mg PO TID PRN (Reason: hypotension) 60 Days Qty: 180 0RF Rx Instructions: do not give last dose of day after 6PM or within 4 hrs of bedtime If systolic BP <110 Discontinued ibuprofen 600 mg tablet 600 mg PO Q8H PRN (Reason: fever or pain) Qty: 30 0RF Referrals: Valerio Powell MD [Primary Care Provider, Family Practice] Patient/Caregiver Discharge Instructions Education Materials: Esophageal Varices, Alcohol Addiction Print Language: Macedonian Stand Alone Forms: Corrine Award Info., Patient Portal Info Letter Discharge Order Discharge Orders: Discharge (Routine); Ordered 07/07/25 Ordered By: Doretha Carmona Quality Discharge Quality Measures VTE prophylaxis Attestestation MD Attestation I have examined the patient, reviewed labs and imaging findings, discussed the case with the resident(s), and reviewed entered orders. I agree with the plan of care as outlined in this note. Time Spent: [address] Tremayne MD
--- NOTE | 2025-07-07 09:49 | PC.SS ---
Update: Plan is to d/c patient home today.
[2025-07-09 06:20] LABS: Helicobacter pylori Ag, Stool* NOT DETECTED (NOT DETECTED)
== END 2025-07-07 12:01 | disposition home or self-care (01) | DRG 279 ==
LOC: SERX 20:58 → SERHOLD 22:43 → S2NX 07-01 00:04 → S3SX 07-05 22:17
PROVIDERS: Emergency Medicine; Physician Assistant; Specialist; Admitting Provider Internal Medicine; Emergency Provider Emergency Medicine; PCP Family Medicine; Visit Provider Internal Medicine
PROC: (CPT 43239; principal; 2025-07-01 19:30)
DX: K72.10 Chronic hepatic failure without coma (principal); E87.3 Alkalosis; K70.31 Alcoholic cirrhosis of liver with ascites; D69.59 Other secondary thrombocytopenia; J90 Pleural effusion, not elsewhere classified; I85.11 Secondary esophageal varices with bleeding; K82.8 Other specified diseases of gallbladder; E87.1 Hypo-osmolality and hyponatremia; Y90.0 Blood alcohol level of less than 20 mg/100 ml; F10.10 Alcohol abuse, uncomplicated; D62 Acute posthemorrhagic anemia; J18.9 Pneumonia, unspecified organism; K25.4 Chronic or unspecified gastric ulcer with hemorrhage; K76.6 Portal hypertension; K25.9 Gastric ulcer, unspecified as acute or chronic, without hemorrhage or perforation; E78.00 Pure hypercholesterolemia, unspecified; E78.1 Pure hyperglyceridemia
CPT/HCPCS: 36415; 36430; 71045; 74177; 76705; 80053; 80061; 80069; 80074; 80307; 80320; 81001; 81025; 82040; 82042; 82140; 82150; 82248; 82270; 82436; 82570; 82803; 82945; 83013; 83014; 83036; 83615; 83690; 83735; 83880; 84100; 84133; 84157; 84295; 84300; 84443; 84484; 85025; 85610; 85730; 86850; 86870; 86900; 86901; 86902; 86921; 86922; 87070; 87075; 87205; 87338; 87502; 87811; 89051; 93005; 93225; 96365; 96372; 96375; 97162; 99285; A4649; C1729; J0696; J1200; J1644; J1938; J2250; J2354; J2405; J2470; J3010; J3475; J3480; J3490; J7050; J7999; P9016; P9047; Q9967; A9270; G0480; P0947

== ENCOUNTER 2025-07-22 17:26 | Emergency (ER) | payer MEDICAID, SELFPAY ==
[2025-07-22 17:37] VITALS: BP 117/79; PULSE 84; RESP 17; TEMP 37.1; O2SAT 98
--- NOTE | 2025-07-22 17:52 | EDNOTE_ITS ---
ED Abdominal Pain RME/HPI General Chief Complaint: Abdominal Pain Stated complaint: ABD SWELLING AND PAIN Time seen by provider: 07/22/25 17:39 Arrival date/time: 07/22/25 17:26 40-year-old female patient with significant history of abdominal ascites secondary to liver cirrhosis secondary to alcoholism, was recently discharged in this hospital 2 weeks ago came in for evaluation regarding worsening abdominal distention. This been ongoing for the last few days, has severity mild. Patient denies any shortness of breath denies any vomiting denies any blood in the stool or dark-colored stool. Patient is ambulatory. Denies any fever. Denies any abdominal pain also. Related Data Previous Rx's ?Medication ?Instructions ?Recorded furosemide 20 mg tablet (Lasix) 20 mg PO QAM Cirrhosis 3 months 07/06/25 #90 tabs lactulose 10 gram/15 mL oral 20 g (30 mL) PO BID Cirrh osis 1 07/06/25 solution month #1,800 mL multivitamin with folic acid 400 1 tab PO QDAY 1 month #30 tabs 07/06/25 mcg tablet (Tab-A-Carol) spironolactone 50 mg tablet 50 mg PO QAM Cirrhosis 3 m onths 07/06/25 #90 tabs sucralfate 100 mg/mL oral 1 g (10 mL) PO QID Ulcers 3 months 07/06/25 suspension #3,600 mL midodrine 5 mg tablet 5 mg PO TID PRN hypotension 2 07/07/25 months #180 tabs Allergies Allergy/AdvReac Type Severity Reaction Status Date / Time No Known Drug Allergies Allergy Verified 07/22/25 17:30 Review of Systems Review of Systems Narrative Review of Systems: Review of system reviewed and within normal limits except mentioned in HPI ED Exam Narrative Physical exam: VITAL SIGNS: Reviewed. GENERAL APPEARANCE: Alert and interactive, follows commands, no acute distress, HEAD AND FACE: Non-traumatic. ENT: PERRL, icteric sclera, eyelid no trauma, Mucous membrane moist. NECK: Supple, nontender, no nuchal rigidity. CHEST: No tenderness, no crepitus, no paradoxical movement, no retractions. LUNGS: Clear, well ventilated, symmetric, no rales, no wheezing, no ronchi, no stridor, good breath sounds bilaterally. HEART: Regular rate, regular rhythm, no murmur, no gallops. ABDOMEN: Soft, positive bowel sounds, distended, positive fluid wave test, nontender,, no rebound, no masses, RECTAL: Deferred. GENITAL: Deferred. NEUROLOGICAL: Gross motor function intact sensory function intact, Appropriate for age. MUSCULOSKELETAL: low back nontender, full range of motion. EXTREMITIES: Nontender, full range of motion. SKIN: Color slightly jaundiced, dry, no rash, no lacerations, no abrasions, no contusions. LYMPHATICS: Deferred. Course Quality Measures none Vital Signs Vital signs: Vital Signs Temperature 98.7 F 07/22/25 17:37 Pulse Rate 84 07/22/25 17:37 Respiratory Rate 17 07/22/25 17:37 Blood Pressure 117/79 07/22/25 17:37 Pulse Oximetry (%) 98 07/22/25 17:37 Oxygen Delivery Method Room Air 07/22/25 17:37 Abdominal Pain MDM MDM Narrative MDM Narrative:: 40-year-old female patient with significant history of abdominal ascites secondary to liver cirrhosis secondary to alcoholism, was recently discharged in this hospital 2 weeks ago came in for evaluation regarding worsening abdominal distention. This been ongoing for the last few days, has severity mild. Patient denies any shortness of breath denies any vomiting denies any blood in the stool or dark-colored stool. Patient is ambulatory. Denies any fever. Denies any abdominal pain also. Plan of care discussed with the patient, advised him to come back in the morning for paracentesis. Tonight nobody is doing paracentesis. IR is already gone. She is stable to come back tomorrow. Patient data External records reviewed:: [facility] previous records Clinical information provided by:: patient Social determinants that could affect healthcare access:: none Patient has the following chronic illnesses:: Liver cirrhosis secondary to alcoholism How is presenting disease/condition affected by chronic disease/condition?: exacerbated by Evaluation data The following diagnostics were reviewed and interpreted by me:: other (specify) (None) Lab and/or radiology exams considered but not ordered:: None Interpretation Summary: None Medications / Prescriptions Medications or Prescriptions considered but not ordered:: None Medication administrations:: None Consultations Consultation(s) initiated? (list below): No Diagnosis Differential diagnosis abdominal pain: other (Abdominal ascites, liver c irrhosis) Most likely diagnosis given after review of the tests above:: Abdominal ascites Admission Indicated Admission indicated?: not indicated Admission Request Was there a request for admission?: No Disposition Plan Disposition Plan: Discharge Discharge Attestation Discharge Attestation: The patient was given an opportunity to ask questions and understood the discharge instructions. Discharge instructions specifically effects, indications for sooner follow up or return to the emergency department, and the expected course of current diagnosis. Patient condition: Stable Discharge Plan Plan Patient Disposition: HOME (Self Care) Discharge Disposition comment: Stable Prescriptions/Referrals Prescriptions/Med Rec: No Action lactulose 10 gram/15 mL solution 20 g PO BID 30 Days Qty: 1800 0RF sucralfate 100 mg/mL Suspension 1 g PO QID 90 Days Qty: 3600 0RF multivitamin with folic acid [Tab-A-Carol] 400 mcg Tablet 1 tab PO QDAY 30 Days Qty: 30 0RF spironolactone 50 mg tablet 50 mg PO QAM 90 Days Qty: 90 0RF furosemide [Lasix] 20 mg tablet 20 mg PO QAM 90 Days Qty: 90 0RF midodrine 5 mg tablet 5 mg PO TID PRN (Reason: hypotension) 60 Days Qty: 180 0RF Rx Instructions: do not give last dose of day after 6PM or within 4 hrs of bedtime If systolic BP <110 Problem List Clinical Impression: Liver cirrhosis, Abdominal ascites Patient/Caregiver Discharge Instructions Discharge Activity: activity as tolerated Education Materials: ED Ascites Additional Instructions: Please return to emergency room in the morning for paracentesis Come back anytime to the emergency room for worsening of symptoms. Print Language: [place] Stand Alone Forms: Corrine Award Info., Patient Portal Info Letter TURNER/KARLIE Supervising Physician JALEEL Supervising Physician: MD Evelin
== END 2025-07-22 19:08 | disposition home or self-care (01) ==
LOC: SERX 19:15
PROVIDERS: Emergency Provider Emergency Medicine
DX: K70.31 Alcoholic cirrhosis of liver with ascites (principal); F10.20 Alcohol dependence, uncomplicated
CPT/HCPCS: 99281

== ENCOUNTER 2025-07-23 09:00 | Emergency (ER) | payer MEDICAID, SELFPAY ==
--- NOTE | 2025-07-23 09:04 | XR_ITS ---
Examination: Ultrasound-guided paracentesis Abdominal sonogram limited Date and time of exam: July 23, 2025, 1253 hours INDICATIONS: Cirrhosis, increasing ascites abdominal distention history Informed consent provided. A timeout was completed verifying correct patient, procedure, site, positioning, and special adequate movement if applicable. Technique: Multiple sonographic images of the abdomen have been obtained. Appropriate area for paracentesis was marked. Local anesthesia is obtained with 1% lidocaine. Yueh catheter is successfully introduced. Findings: Abdominal sonographic images demonstrate sufficient ascitic fluid for paracentesis. After placing the Yueh catheter, 3900 cc of fluid were successfully removed. During and after completion of the procedure the patient appear in satisfactory and stable condition with no complications observed. Estimated blood loss 0 cc Impression: Abdominal ascites Successful ultrasound-guided paracentesis as described above
[2025-07-23 09:12] VITALS: BP 120/63; PULSE 82; RESP 18; TEMP 36.8; O2SAT 98; BMI 18.6
--- NOTE | 2025-07-23 13:45 | EDNOTE_ITS ---
ED Abdominal Pain RME/HPI General Chief Complaint: Recheck/Abnormal Lab/Rx Stated complaint: needs paracentesis, seen yesterday Time seen by provider: 07/23/25 09:04 Arrival date/time: 07/23/25 09:00 40-year-old female presents to the emergency department today requesting paracentesis patient reports history of cirrhosis and ascites requiring paracentesis in the past patient reports no chest pain or shortness of breath states she would just like to have her paracentesis and go home Limitations: no limitations Related Data Previous Rx's ?Medication ?Instructions ?Recorded furosemide 20 mg tablet (Lasix) 20 mg PO QAM Cirrhosis 3 months 07/06/25 #90 tabs lactulose 10 gram/15 mL oral 20 g (30 mL) PO BID Cirrh osis 1 07/06/25 solution month #1,800 mL multivitamin with folic acid 400 1 tab PO QDAY 1 month #30 tabs 07/06/25 mcg tablet (Tab-A-Carol) spironolactone 50 mg tablet 50 mg PO QAM Cirrhosis 3 m onths 07/06/25 #90 tabs sucralfate 100 mg/mL oral 1 g (10 mL) PO QID Ulcers 3 months 07/06/25 suspension #3,600 mL midodrine 5 mg tablet 5 mg PO TID PRN hypotension 2 07/07/25 months #180 tabs Allergies Allergy/AdvReac Type Severity Reaction Status Date / Time No Known Drug Allergies Allergy Verified 07/23/25 09:05 Review of Systems Review of Systems Systems Reviewed: All systems reviewed, normal except as documented Constitutional Constitutional: Reports system reviewed and no additional complaints, except as documented, Denies fever(s) and Denies headache(s) Eyes Eyes: Reports system reviewed and no additional complaints, except as documented and Denies blurry vision ENT Ears, Nose, Mouth, and Throat: Reports system reviewed and no additional complaints, except as documented, Denies headache(s), Denies nasal congestion and Denies nasal discharge Cardiovascular Cardiovascular: Reports system reviewed and no additional complaints, except as documented, Denies chest pain and Denies dyspnea Respiratory Respiratory: Reports system reviewed and no additional complaints, except as documented, Denies chest congestion, Denies cough and Denies dyspnea Gastrointestinal Gastrointestinal: Reports system reviewed and no additional complaints, except as documented, Denies abdominal pain, Denies melena, Denies nausea and Reports other (Abdominal distention, ascites) Integumentary/Breasts Skin/Breast: Reports system reviewed and no additional complaints, except as documented and Denies rash Neurologic Neurologic: Reports system reviewed and no additional complaints, except as documented, Reports as per HPI and Denies headache(s) Past Medical History Past Medical History NEUROLOGIC: Negative Neurological Disorders or Seizures CARDIAC: Negative Cardiac Disorders or Congestive Heart Failure RESPIRATORY: Positive Asthma; Negative Chronic Obstructive Pulmonary Disease (COPD) GASTROINTESTINAL: Negative Gastrointestinal Disorders or Hepatitis GENITOURINARY: Negative Genitourinary Disorders or Renal Disease REPRODUCTIVE: Negative Breast Cancer MUSCULOSKELETAL: Negative Musculoskeletal Disorders ENDOCRINE: Negative Endocrine Disorders, Diabetes Mellitus Type 1 or Diabetes Mellitus Type 2 HEMATOLOGIC: Negative Blood Disorders or Sickle Cell Disease OTHER HISTORY: Negative Hospitalization, Autoimmune Disease, Down Syndrome, Developmental Delay, Shingles, Falls, Blood Transfusions, Blood Transfusion Reaction, Anesthesia Reactions, MRSA, VRSA, Vancomycin-Resistant Enterococci, Human Immunodeficiency Virus (HIV), Chicken Pox, Measles, Mumps, Rubella ([place]amb[place] Measles), Pertussis, Clostridium Difficile or Breast Cancer Family History FAMILY HISTORY: Negative Family Psychiatric Problems, Family Respiratory Disorders, Family Cardiac Disorders, Family Gastrointestinal Problems, Family Cancer, Family Surgery or Family Anesthesia Reaction Surgical History SURGICAL: Positive Section; Negative Cardiac Surgery, Endocrine Surgery or Thyroidectomy Social History SMOKING STATUS: Former smoker SUBSTANCE USE: does not use ED Exam General Limitations: Present no limitations General appearance: Present alert and in no apparent distress Head Head exam: Present atraumatic, normocephalic and normal inspection Eye Eye exam: Present normal appearance, PERRL and EOMI; Absent conjunctival injection ENT ENT exam: Present normal exam, normal oropharynx and mucous membranes moist Neck Neck exam: Present normal inspection, full ROM and trachea midline Chest Chest inspection: Present normal inspection and symmetric chest wall rise Respiratory Respiratory exam: Present normal lung sounds bilaterally Cardiovascular Cardiovascular exam: Present regular rate, normal rhythm and normal heart sounds Abdominal Exam Abdominal exam: Present soft, distention, normal bowel sounds and ascites; Absent tenderness, guarding, rebound or rigidity Extremities Exam Extremities exam: Present normal inspection and full ROM Back Exam Back exam: Present normal inspection and full ROM Neurological Exam Neurological exam: Present alert, oriented X3 and CN II-XII intact Psychiatric Psychiatric exam: Present normal affect and normal mood Skin Skin exam: Present warm, dry, intact and normal color Course Quality Measures none Orders Category Date Time Status US paracentesis abd w/image Stat Exams 07/23/25 09:04 Ordered Vital Signs Vital signs: Vital Signs Temperature 98.2 F 07/23/25 09:12 Pulse Rate 82 07/23/25 09:12 Respiratory Rate 18 07/23/25 09:12 Blood Pressure 120/63 07/23/25 09:12 Pulse Oximetry (%) 98 07/23/25 09:12 Oxygen Delivery Method Room Air 07/23/25 09:12 O2 saturation 98% room air within normal limits Abdominal Pain MDM MDM Narrative MDM Narrative:: 40-year-old female presents to the emergency department today requesting p aracentesis patient reports history of cirrhosis and ascites requiring paracentesis in the past patient reports no chest pain or shortness of breath states she would just like to have her paracentesis and go home On exam patient well-appearing patient does not appear look toxic and in no acute distress Paracentesis completed patient discharged home Instructed the patient should her symptoms persist or worsen to return immediately for further evaluation Patient data External records reviewed:: [facility] previous records Clinical information provided by:: patient Social determinants that could affect healthcare access:: none Patient has the following chronic illnesses:: None How is presenting disease/condition affected by chronic disease/condition?: no chronic disease Evaluation data The following diagnostics were reviewed and interpreted by me:: radiology exam(s) Lab and/or radiology exams considered but not ordered:: Radiology obtained Interpretation Summary: Reviewed by me Medications / Prescriptions Medications or Prescriptions considered but not ordered:: Given Medication administrations:: Given Consultations Consultation(s) initiated? (list below): No Diagnosis Differential diagnosis abdominal pain: abdominal pain, acute appendicitis, pancreatitis, small bowel obstruction and other (Ascites, cirrhosis) Most likely diagnosis given after review of the tests above:: Ascites, cirrhosis Admission Indicated Admission indicated?: not indicated Admission Request Was there a request for admission?: No Disposition Plan Disposition Plan: Discharge Discharge Attestation Discharge Attestation: The patient and all family members were given an opportunity to ask questions and understood the discharge instructions. Discharge instructions specifically effects, indications for sooner follow up or return to the emergency department, and the expected course of current diagnosis. Patient condition: Stable Discharge Plan Plan Patient Disposition: HOME (Self Care) Discharge Disposition comment: Stable Prescriptions/Referrals Prescriptions/Med Rec: No Action lactulose 10 gram/15 mL solution 20 g PO BID 30 Days Qty: 1800 0RF sucralfate 100 mg/mL Suspension 1 g PO QID 90 Days Qty: 3600 0RF multivitamin with folic acid [Tab-A-Carol] 400 mcg Tablet 1 tab PO QDAY 30 Days Qty: 30 0RF spironolactone 50 mg tablet 50 mg PO QAM 90 Days Qty: 90 0RF furosemide [Lasix] 20 mg tablet 20 mg PO QAM 90 Days Qty: 90 0RF midodrine 5 mg tablet 5 mg PO TID PRN (Reason: hypotension) 60 Days Qty: 180 0RF Rx Instructions: do not give last dose of day after 6PM or within 4 hrs of bedtime If systolic BP <110 Referrals: Siddharth Tang MD [Primary Care Provider] - 07/26/25 Problem List Clinical Impression: Liver cirrhosis, Abdominal ascites Patient/Caregiver Discharge Instructions Education Materials: Paracentesis Additional Instructions: Please follow up with your primary care doctor in the next 24-48hrs for any worsening symptoms return here immediately Print Language: Lao Stand Alone Forms: Corrine Award Info., Patient Portal Info Letter PA/VENEER CLIPPER HELPER Supervising Physician PA/VENEER CLIPPER HELPER Supervising Physician: Dr. Waters
== END 2025-07-23 15:21 | disposition home or self-care (01) ==
PROVIDERS: Emergency Provider Emergency Medicine; PCP Family Medicine
DX: K74.60 Unspecified cirrhosis of liver (principal); R18.8 Other ascites
CPT/HCPCS: 49083; 99282; C1729

== ENCOUNTER 2025-08-01 14:58 | Emergency (ER) | payer MEDICAID, SELFPAY ==
[2025-08-01] VITALS (8 sets, daily range): BP systolic 131–149; BP diastolic 74–92; PULSE 81–97; RESP 16–18; TEMP 36.8–37.1; O2SAT 97–100; BMI 22.0
--- NOTE | 2025-08-01 16:36 | EDRME_ITS ---
Rapid Medical Screening Exam [facility] Arrival date/time: 08/01/25 14:58 This is a 40-year-old female who comes into the emergency room with complaints of abdominal pain and feels like abdomen needs to be drained. Patient has history of ascites. Patient states she has been drained in the past. Patient states she was taking her medication but she says that it was making her worse so she stopped taking her medication. Patient does not know if she has liver cirrhosis. Patient states that no one's ever told her that. Patient does report that she used to be an alcoholic but she states she does not drink anymore Patient denies fever, nausea, vomiting, diarrhea. I have greeted and performed a focused initial assessment of this patient. Initial appropriate labs ordered at this time. A comprehensive ED assessment and evaluation of the patient and analysis of all test and completion of medical decision making process will be conducted by additional ED provider. Chief Complaint: Abdominal Pain Time Seen by Provider: 08/01/25 15:39 Vital signs: Vital Signs Temperature 98.7 F 08/01/25 15:26 Pulse Rate 95 08/01/25 15:26 Respiratory Rate 16 08/01/25 15:26 Blood Pressure 133/78 H 08/01/25 15:26 Pulse Oximetry (%) 97 08/01/25 15:26 Oxygen Delivery Method Room Air 08/01/25 15:26 Exam: Abdomen distended, breathing even unlabored's patient alert and oriented Clinical Impression: Abdominal pain
--- NOTE | 2025-08-01 16:51 | EDRME_ITS ---
Rapid Medical Screening Exam [facility] Arrival date/time: 08/01/25 14:58 08/01/25 14:58 This is a 40-year-old female who comes into the emergency room with complaints of abdominal pain and feels like abdomen needs to be drained. Patient has history of ascites. Patient states she has been drained in the past. Patient states she was taking her medication but she says that it was making her worse so she stopped taking her medication. Patient does not know if she has liver cirrhosis. Patient states that no one's ever told her that. Patient does report that she used to be an alcoholic but she states she does not drink anymore Patient denies fever, nausea, vomiting, diarrhea. I have greeted and performed a focused initial assessment of this patient. Initial appropriate labs ordered at this time. A comprehensive ED assessment and evaluation of the patient and analysis of all test and completion of medical decision making process will be conducted by additional ED provider. Chief Complaint: Abdominal Pain Time Seen by Provider: 08/01/25 15:39 Vital signs: Vital Signs Temperature 98.7 F 08/01/25 15:26 Pulse Rate 95 08/01/25 15:26 Respiratory Rate 16 08/01/25 15:26 Blood Pressure 133/78 H 08/01/25 15:26 Pulse Oximetry (%) 97 08/01/25 15:26 Oxygen Delivery Method Room Air 08/01/25 15:26 [facility] Narrative: 08/01/25 14:58 This is a 40-year-old female who comes into the emergency room with complaints of abdominal pain and feels like abdomen needs to be drained. Patient has history of ascites. Patient states she has been drained in the past. Patient states she was taking her medication but she says that it was making her worse so she stopped taking her medication. Patient does not know if she has liver cirrhosis. Patient states that no one's ever told her that. Patient does report that she used to be an alcoholic but she states she does not drink anymore Patient denies fever, nausea, vomiting, diarrhea. I have greeted and performed a focused initial assessment of this patient. Initial appropriate labs ordered at this time. A comprehensive ED assessment and evaluation of the patient and analysis of all test and completion of medical decision making process will be conducted by additional ED provider. Exam: Abdomen distended, breathing even unlabored's patient alert and oriented Clinical Impression: Abdominal pain
[2025-08-01 18:03] LABS: Basophils # (Auto) 0.1 Thou/mm3 (0.0-0.2); Basophils % (Auto) 1 % (0-2.5); Eosinophils # (Auto) 0.1 Thou/mm3 (0.0-0.5); Eosinophils % (Auto) 1 % (0-10); Hematocrit 25.0 % (36.0-46.0); Immature Granulocytes Auto 0.10 Thou/mm3 (0.00-0.00); Lymphocytes # (Auto) 1.9 Thou/mm3 (1.0-4.8); Lymphocytes % (Auto) 19 % (10-50); Mean Corpuscular HGB Conc 32.8 g/dl (31.0-37.0); Mean Corpuscular Hemoglobin 30.4 pg (25.0-35.0); Mean Corpuscular Volume 93 fL (80-100); Monocytes # (Auto) 1.1 Thou/mm3 (0.0-0.8); Monocytes % (Auto) 11 % (0-12); Neutrophils # (Auto) 6.9 Thou/mm3 (1.8-7.7); Neutrophils % (Auto) 68 % (37-80); Nucleated Red Blood Cell # 0.00 Thou/mm3 (0.00-0.00); Nucleated Red Blood Cell % 0 /100 WBC (0); Platelet Count 102 Thou/mm3 (140-440); RDW Standard Deviation 80.4 fL (36.4-46.3); Red Blood Count 2.70 Miln/mm3 (4.00-5.20); White Blood Count 10.0 Thou/mm3 (3.6-11.0)
[2025-08-01 18:11] LABS: Hemoglobin 8.2 g/dL (12.0-16.0)
[2025-08-01 18:19] LABS: Collection Type, Urine Voided
[2025-08-01 18:22] LABS: INR 1.3 (0.9-1.3); Partial Thromboplastin Time 28.4 Seconds (22.0-36.0); Prothrombin Time 13.5 Seconds (9.0-12.2)
--- NOTE | 2025-08-01 18:23 | EDNOTE_ITS ---
ED Abdominal Pain RME/HPI General Chief Complaint: Abdominal Pain Stated complaint: ASCITES Time seen by provider: 08/01/25 15:39 Arrival date/time: 08/01/25 14:58 RME / HPI RME / HPI narrative: 08/01/25 14:58 This is a 40-year-old female who comes into the emergency room with complaints of abdominal pain and feels like abdomen needs to be drained. Patient has history of ascites. Patient states she has been drained in the past. Patient states she was taking her medication but she says that it was making her worse so she stopped taking her medication. Patient does not know if she has liver cirrhosis. Patient states that no one's ever told her that. Patient does report that she used to be an alcoholic but she states she does not drink anymore Patient denies fever, nausea, vomiting, diarrhea. I have greeted and performed a focused initial assessment of this patient. Initial appropriate labs ordered at this time. A comprehensive ED assessment and evaluation of the patient and analysis of all test and completion of medical decision making process will be conducted by additional ED provider. Dr. Naidu?s Main ED Evaluation: 40yo female with known history of cirrhotic liver disease, most recent paracentesis on 07/23/25 presenting with recurrent abdominal pain/distention. No fever or chills. No vomiting or diarrhea. No shortness of breath. PMH includes cirrhotic liver disease. PSH includes c- section. Related Data Previous Rx's ?Medication ?Instructions ?Recorded furosemide 20 mg tablet (Lasix) 20 mg PO QAM Cirrhosis 3 months 07/06/25 #90 tabs lactulose 10 gram/15 mL oral 20 g (30 mL) PO BID Cirrh osis 1 07/06/25 solution month #1,800 mL multivitamin with folic acid 400 1 tab PO QDAY 1 month #30 tabs 07/06/25 mcg tablet (Tab-A-Carol) spironolactone 50 mg tablet 50 mg PO QAM Cirrhosis 3 m onths 07/06/25 #90 tabs sucralfate 100 mg/mL oral 1 g (10 mL) PO QID Ulcers 3 months 07/06/25 suspension #3,600 mL midodrine 5 mg tablet 5 mg PO TID PRN hypotension 2 07/07/25 months #180 tabs cephalexin 500 mg capsule 500 mg PO TID #15 caps 08/01 spironolactone 25 mg tablet 25 mg PO .qhs #30 tabs 06/17 (Aldactone) Allergies Allergy/AdvReac Type Severity Reaction Status Date / Time No Known Drug Allergies Allergy Verified 08/01/25 15:01 Review of Systems Review of Systems Systems Reviewed: All systems reviewed, normal except as documented ED Exam Narrative Physical exam: GENERAL APPEARANCE: alert and oriented x 4, chronically-ill appearing, nontoxic, no acute distress VITALS: All vitals were reviewed and the pulse ox is 97% on room air, which is normal according to my interpretation. HEENT: Normocephalic, atraumatic; pupils equal, round, reactive to light; EOMI; mucous membranes pink, moist; oropharynx clear NECK: Supple LUNGS: CTABL; no wheezes, no rales, no rhonchi HEART: Regular rate, regular rhythm; normal S1, S2; no murmurs ABDOMEN: 4+ distention; soft, nontender, tense with fluid wave EXTREMITIES: atraumatic; no edema NEUROLOGIC: awake; alert and oriented x4; cranial nerves II-XII grossly intact; no focal sensory or motor deficits PSYCHIATRIC: appropriate mood and affect SKIN: warm, dry, normal color; no rashes Course Quality Measures none Orders Category Date Time Status EKG (ED ONLY) *Do not use* NOW Care 08/01/25 18:35 Completed EKG (ED Only) Stat Exams 08/01/25 18:35 Draft B-Type Natriuretic Peptide Stat Lab 08/01/25 17:31 Completed Body Fld Culture & Gram Stain Stat Lab 08/01/25 19:30 Results CBC Stat Lab 08/01/25 17:31 Completed Comprehensive Metabolic Panel Stat Lab 08/01/25 17:31 Completed Drug Screen,Urine Stat Lab 08/01/25 18:06 Completed HCG Qualitative,Urine Stat Lab 08/01/25 18:06 Completed Lipase Stat Lab 08/01/25 17:31 Completed Magnesium Stat Lab 08/01/25 17:31 Completed PT [Prothrombin Time with INR] Stat Lab 08/01/25 17:31 Completed PTT [Partial Thromboplastin Time] Stat Lab 08/01/25 17:31 Completed Peritoneal Cell Cnt/Diff Stat Lab 08/01/25 20:38 Completed Urinalysis, C/S if Indicated Stat Lab 08/01/25 18:06 Completed Urine Culture Stat Lab 08/01/25 18:06 Completed Vital Signs Vital signs: Vital Signs Temperature 98.7 F 08/01/25 15:26 Pulse Rate 95 08/01/25 15:26 Respiratory Rate 16 08/01/25 15:26 Blood Pressure 133/78 H 08/01/25 15:26 Pulse Oximetry (%) 97 08/01/25 15:26 Oxygen Delivery Method Room Air 08/01/25 15:26 PROCEDURES: Paracentesis Time Out Performed: Yes Local Anesthetic: lidocaine 1% Amount of anesthesia used (mL): 5 Fluid: other (5L of straw-appearing fluid) Post Procedure Exam: awake, alert, normal BP, normal HR and normal SpO2 Patient Tolerated Procedure: well and no complications Abdominal Pain MDM MDM Narrative MDM Narrative:: Scribe Attestation: 08/01/25 - Sidra Lund am scribing for and in the presence of Dr. Naidu. 40yo female with known history of cirrhotic liver disease, most recent paracentesis on 07/23/25 presenting with recurrent abdominal pain/distention. No fever or chills. Please see PE findings. CBC showed stable Hgb and Plt counts. Chemistries are at baseline. UA demonstrates positive nitrites. Patient underw ent paracentesis with aspiration of ~5L of straw-appearing fluid without complication. On serial re-evaluation, patient is resting comfortably and reports overall subjective improvement. Considered stable for discharge home. Will add antibiotics for UTI and instruct patient to increase Aldactone and add an additional 25mg tablet at night to patient's Lasix and AM Aldactone dosing. Patient data External records reviewed:: [facility] previous records (Per chart review, patient was seen here on 07/23/25 for abdominal ascites.) Clinical information provided by:: patient Social determinants that could affect healthcare access:: alcohol use Patient has the following chronic illnesses:: end-stage liver disease, anemia How is presenting disease/condition affected by chronic disease/condition?: exacerbated by Evaluation data The following diagnostics were reviewed and interpreted by me:: lab results and EKG tracing(s) Lab and/or radiology exams considered but not ordered:: none Interpretation Summary: EKG done at 2102, sinus rhythm, rate of 82, no acute ST segment elevations, nonspecific ST-T wave changes no ectopy, normal intervals, normal axis, according to my interpretation. Medications / Prescriptions Medications or Prescriptions considered but not ordered:: none Medication administrations:: lidocaine 1% - 5cc for paracentesis Consultations Consultation(s) initiated? (list below): No Diagnosis Differential diagnosis abdominal pain: abdominal pain, constipation and small bowel obstruction Most likely diagnosis given after review of the tests above:: recurrent ascites/ Hepatic insufficiency / cirrhosis Admission Indicated Admission indicated?: not indicated Admission Request Was there a request for admission?: No Disposition Plan Disposition Plan: Discharge Discharge Attestation Discharge Attestation: The patient and all family members were given an opportunity to ask questions and understood the discharge instructions. Discharge instructions specifically effects, indications for sooner follow up or return to the emergency department, and the expected course of current diagnosis. Patient condition: Stable Discharge Plan Plan Patient Disposition: HOME (Self Care) Discharge Disposition comment: Stable Prescriptions/Referrals Prescriptions/Med Rec: New spironolactone [Aldactone] 25 mg tablet 25 mg PO .qhs Qty: 30 1RF cephalexin 500 mg capsule 500 mg PO TID Qty: 15 0RF No Action lactulose 10 gram/15 mL solution 20 g PO BID 30 Days Qty: 1800 0RF sucralfate 100 mg/mL Suspension 1 g PO QID 90 Days Qty: 3600 0RF multivitamin with folic acid [Tab-A-Carol] 400 mcg Tablet 1 tab PO QDAY 30 Days Qty: 30 0RF spironolactone 50 mg tablet 50 mg PO QAM 90 Days Qty: 90 0RF furosemide [Lasix] 20 mg tablet 20 mg PO QAM 90 Days Qty: 90 0RF midodrine 5 mg tablet 5 mg PO TID PRN (Reason: hypotension) 60 Days Qty: 180 0RF Rx Instructions: do not give last dose of day after 6PM or within 4 hrs of bedtime If systolic BP <110 Referrals: Valerio Powell MD [Primary Care Provider, Family Practice] - In 1 week Problem List Clinical Impression: Liver cirrhosis, Ascites Patient/Caregiver Discharge Instructions Discharge Activity: activity as tolerated Diet Instructions: Low-salt Education Materials: ED Ascites Additional Instructions: Will increase Aldactone to 25 mg tablet at night. Continue all other medications as directed. Follow-up with primary care doctor/GI specialist within 1 to 2 weeks return if worsening Print Language: Italian Stand Alone Forms: [employer] Award Info., Patient Portal Info Letter
[2025-08-01 18:27] LABS: Alanine Aminotransferase 16 U/L (10-49); Albumin, Serum 2.7 gm/dL (3.5-5.0); Albumin/Globulin Ratio 0.6 (1.2-2.2); Alkaline Phosphatase 416 U/L (46-116); Anion Gap 10 (7-16); Aspartate Amino Transferase 91 U/L (0-34); BUN/Creatinine Ratio 18 Ratio (12-20); Bilirubin,Total 3.9 mg/dL (0.3-1.2); Blood Urea Nitrogen 7 mg/dL (9-23); Calcium 8.0 mg/dL (8.3-10.6); Calcium (Corrected) 9.0 mg/dL (8.5-10.1); Carbon Dioxide 23.4 mMol/L (20.0-31.0); Chloride 109 mMol/L (98-107); Creatinine (Component) 0.4 mg/dL (0.6-1.3); Estimated Creatinine Clearance 115.1 mL/min (>60); Globulin 4.4 gm/dL (2.3-3.5); Glucose 111 mg/dL (74-106); Lipase 64 U/L (12-53); Osmolality,Calculated 282 (275-295); Potassium 3.7 mMol/L (3.4-5.1); Sodium 142 mMol/L (136-145); Total Protein 7.1 gm/dL (5.7-8.2); eGFR > 60 See Note
[2025-08-01 18:34] LABS: Amphetamine/Methamp Scrn,U Negative (Negative); Barbiturate Screen,Urine Negative (Negative); Benzodiazepines Screen,Urine Negative (Negative); Benzoylecgonine Screen, Ur Negative (Negative); Fentanyl Screen,Urine Negative (Negative); Opiate Screen,Urine Negative (Negative); THC Screen,Urine Negative (Negative)
--- NOTE | 2025-08-01 18:35 | EKG_ITS ---
[facility] Test Date: 2025-08-01 Pat Name: JAMAR PEREZ Department: Room: - Gender: Female Supervisor Public Message Service: : 1985 Requested By: Gilberto Aponte Order Number: [id number] Reading MD: Gilberto Aponte Measurements Intervals [place] Rate: 82 P: 38 MI: 137 QRS: 61 QRSD: 84 T: -11 QT: 396 QTc: 465 Interpretive Statements SINUS RHYTHM NONSPECIFIC T-WAVE ABNORMALITY Compared to ECG 06/30/2025 14:57:53 T-wave abnormality now present Myocardial infarct finding no longer present /store/S0/[id number].pdf
[2025-08-01 18:36] LABS: Bilirubin,Urine 1+ (Negative); Blood,Urine Negative (Negative); Clarity,Urine Clear (Clear/Hazy); Color,Urine Drk Orange (Lt Yel-Yel); Glucose, Urine Trace (Negative); Ketones,Urine Negative (Negative); Leukocyte Esterase,Urine Trace (Negative); Nitrite,Urine Positive (Negative); PH,Urine 6.0 (5.0-7.0); Protein,Urine 1+ (Neg - Trace); Specific Gravity,Urine >= 1.030 (1.001-1.035); Urobilinogen,Urine 1.0 mg/dL (0.0-1.0)
[2025-08-01 18:39] LABS: Culture Indicated,Urine Yes
[2025-08-01 18:41] LABS: HCG Qualitative,Urine Negative
[2025-08-01 19:07] LABS: Magnesium 1.7 mg/dL (1.6-2.6)
[2025-08-01 19:30] LABS: B-Type Natriuretic Peptide 104 pg/mL (0-100)
--- NOTE | 2025-08-01 20:58 | PC.NURSE ---
PARACENTESIS DONE, 5100ML REMOVED. PT TOLERATED PROCEDURE WELL. PT DENIES ANY PAIN AND STATES SHE FEELS SO MUCH BETTER. MD AT BEDSIDE
[2025-08-01 22:57] LABS: Peritoneal Fluid Mononuclear 80.0 %; Peritoneal Fluid Polynuclear 20.0 %; Peritoneal Fluid WBC 105 /cmm
[2025-08-01 23:04] LABS: Peritoneal Fluid Appearance Clear; Peritoneal Fluid Color Yellow; RBC,Peritoneal Fluid 1000 /cmm
== END 2025-08-01 22:16 | disposition home or self-care (01) ==
PROVIDERS: Nurse Practitioner Family; Emergency Provider Emergency Medicine; PCP Family Medicine
DX: R18.8 Other ascites (principal); K72.90 Hepatic failure, unspecified without coma; K74.60 Unspecified cirrhosis of liver
CPT/HCPCS: 49082; 36415; 80053; 80307; 81001; 81025; 83690; 83735; 83880; 85025; 85610; 85730; 87070; 87086; 87205; 89051; 93005; 99283

== ENCOUNTER 2025-08-11 11:19 | Emergency (ER) | payer MEDICAID, SELFPAY ==
[2025-08-11 11:46] VITALS: BP 129/65; PULSE 95; RESP 16; TEMP 36.8; O2SAT 99; BMI 23.8
--- NOTE | 2025-08-11 11:51 | XR_ITS ---
Examination: Ultrasound-guided paracentesis Abdominal sonogram limited Date and time of exam: August 11, 2025, 1328 hours INDICATION: Cirrhosis increasing ascites abdominal distention this week Informed consent provided. A timeout was completed verifying correct patient, procedure, site, positioning, and special adequate movement if applicable. Technique: Multiple sonographic images of the abdomen have been obtained. Appropriate area for paracentesis was marked. Local anesthesia is obtained with 1% lidocaine. Yueh catheter is successfully introduced. Findings: Abdominal sonographic images demonstrate sufficient ascitic fluid for paracentesis. After placing the Yueh catheter, 300 cc of fluid were successfully removed. During and after completion of the procedure the patient appear in satisfactory and stable condition with no complications observed. Estimated blood loss 0 cc Impression: Abdominal ascites Successful ultrasound-guided paracentesis as described above
--- NOTE | 2025-08-11 14:57 | PC.NURSE ---
Pt did not answer when name was called and was not found outside.
--- NOTE | 2025-08-11 15:12 | PC.NURSE ---
Pt did not answer when name was called and was not found outside.
--- NOTE | 2025-08-11 15:25 | EDNOTE_ITS ---
ED General RME/HPI General Chief complaint: General Adult/Misc Complain Stated complaint: ASCITES Time Seen by Provider: 08/11/25 11:51 Arrival date/time: 08/11/25 11:19 40-year-old female with history of cirrhosis and ascites presents requesting paracentesis patient reports no chest pain no shortness of breath no abdominal pain Limitations: no limitations Related Data Previous Rx's ?Medication ?Instructions ?Recorded furosemide 20 mg tablet (Lasix) 20 mg PO QAM Cirrhosis 3 months 07/06/25 #90 tabs spironolactone 50 mg tablet 50 mg PO QAM Cirrhosis 3 m onths 07/06/25 #90 tabs sucralfate 100 mg/mL oral 1 g (10 mL) PO QID Ulcers 3 months 07/06/25 suspension #3,600 mL midodrine 5 mg tablet 5 mg PO TID PRN hypotension 2 07/07/25 months #180 tabs cephalexin 500 mg capsule 500 mg PO TID #15 caps 08/01 spironolactone 25 mg tablet 25 mg PO .qhs #30 tabs 06/17 (Aldactone) Allergies Allergy/AdvReac Type Severity Reaction Status Date / Time No Known Drug Allergies Allergy Verified 08/11/25 11:24 Review of Systems Review of Systems Systems Reviewed: All systems reviewed, normal except as documented Constitutional Constitutional: Reports system reviewed and no additional complaints, except as documented, Denies fever(s) and Denies headache(s) Eyes Eyes: Reports system reviewed and no additional complaints, except as documented and Denies blurry vision ENT Ears, Nose, Mouth, and Throat: Reports system reviewed and no additional complaints, except as documented, Denies headache(s), Denies nasal congestion and Denies nasal discharge Cardiovascular Cardiovascular: Reports system reviewed and no additional complaints, except as documented, Denies chest pain and Denies dyspnea Respiratory Respiratory: Reports system reviewed and no additional complaints, except as documented, Denies chest congestion, Denies cough and Denies dyspnea Gastrointestinal Gastrointestinal: Reports system reviewed and no additional complaints, except as documented and Denies abdominal pain Integumentary/Breasts Skin/Breast: Reports system reviewed and no additional complaints, except as documented and Denies rash Neurologic Neurologic: Reports system reviewed and no additional complaints, except as documented, Reports as per HPI and Denies headache(s) Past Medical History Past Medical History NEUROLOGIC: Negative Neurological Disorders or Seizures CARDIAC: Negative Cardiac Disorders or Congestive Heart Failure RESPIRATORY: Positive Asthma; Negative Chronic Obstructive Pulmonary Disease (COPD) GASTROINTESTINAL: Positive Cirrhosis (ASCITES); Negative Gastrointestinal Disorders or Hepatitis GENITOURINARY: Negative Genitourinary Disorders or Renal Disease REPRODUCTIVE: Negative Breast Cancer MUSCULOSKELETAL: Negative Musculoskeletal Disorders ENDOCRINE: Negative Endocrine Disorders, Diabetes Mellitus Type 1 or Diabetes Mellitus Type 2 HEMATOLOGIC: Negative Blood Disorders or Sickle Cell Disease OTHER HISTORY: Negative Hospitalization, Autoimmune Disease, Down Syndrome, Developmental Delay, Shingles, Falls, Blood Transfusions, Blood Transfusion Reaction, Anesthesia Reactions, MRSA, VRSA, Vancomycin-Resistant Enterococci, Human Immunodeficiency Virus (HIV), Chicken Pox, Measles, Mumps, Rubella (Irish Measles), Pertussis, Clostridium Difficile or Breast Cancer Family History FAMILY HISTORY: Negative Family Psychiatric Problems, Family Respiratory Disorders, Family Cardiac Disorders, Family Gastrointestinal Problems, Family Cancer, Family Surgery or Family Anesthesia Reaction Surgical History SURGICAL: Positive Section; Negative Cardiac Surgery, Endocrine Surgery or Thyroidectomy Social History SMOKING STATUS: Former smoker SUBSTANCE USE: does not use ED Exam General Limitations: Present no limitations General appearance: Present alert and in no apparent distress Head Head exam: Present atraumatic Eye Eye exam: Present normal appearance, PERRL and EOMI; Absent conjunctival injection ENT ENT exam: Present normal exam, normal oropharynx and mucous membranes moist Neck Neck exam: Present normal inspection, full ROM and trachea midline Chest Chest inspection: Present normal inspection and symmetric chest wall rise Respiratory Respiratory exam: Present normal lung sounds bilaterally; Absent respiratory distress Cardiovascular Cardiovascular exam: Present regular rate, normal rhythm and normal heart sounds Abdominal Exam Abdominal exam: Present soft, distention, normal bowel sounds and ascites; Absent tenderness, guarding, rebound or rigidity Extremities Exam Extremities exam: Present normal inspection and full ROM Back Exam Back exam: Present normal inspection and full ROM Neurological Exam Neurological exam: Present alert, oriented X3 and CN II-XII intact Psychiatric Psychiatric exam: Present normal affect and normal mood Skin Skin exam: Present warm, dry, intact and normal color Course Quality Measures none Orders Category Date Time Status US paracentesis abd w/image Stat Exams 08/11/25 11:51 Completed Vital Signs Vital signs: Vital Signs Temperature 98.2 F 08/11/25 11:46 Pulse Rate 95 08/11/25 11:46 Respiratory Rate 16 08/11/25 11:46 Blood Pressure 129/65 08/11/25 11:46 Pulse Oximetry (%) 99 08/11/25 11:46 Oxygen Delivery Method Room Air 08/11/25 11:46 O2 saturation 99% room air with normal limits Discharge Plan Plan Patient Disposition: Elopement Discharge Disposition comment: Stable Prescriptions/Referrals Prescriptions/Med Rec: No Action spironolactone [Aldactone] 25 mg tablet 25 mg PO .qhs Qty: 30 1RF cephalexin 500 mg capsule 500 mg PO TID Qty: 15 0RF sucralfate 100 mg/mL Suspension 1 g PO QID 90 Days Qty: 3600 0RF spironolactone 50 mg tablet 50 mg PO QAM 90 Days Qty: 90 0RF furosemide [Lasix] 20 mg tablet 20 mg PO QAM 90 Days Qty: 90 0RF midodrine 5 mg tablet 5 mg PO TID PRN (Reason: hypotension) 60 Days Qty: 180 0RF Rx Instructions: do not give last dose of day after 6PM or within 4 hrs of bedtime If systolic BP <110 Problem List Clinical Impression: Ascites, Cirrhosis Patient/Caregiver Discharge Instructions Education Materials: Paracentesis Dc Additional Instructions: Please follow up with your primary care doctor in the next 24-48hrs for any worsening symptoms return here immediately Print Language: Ej TOMPKINS/KARLIE Supervising Physician TURNER/KARLIE Supervising Physician: dr roth MDM Narrative MDM hospital course (for use when minimal MDM required): 40-year-old female with history of cirrhosis and ascites presents requesting paracentesis patient reports no chest pain no shortness of breath no abdominal pain On exam patient well-appearing does not appear ill or toxic no distress Reviewed patient's previous lab work and imaging and history Paracentesis completed Clinical Information Provided by: patient Medical Records reviewed [facility] Meds/Rx considered, not ordered None Labs/Rad/Tests considered, not ordered None Describe: Reviewed previous labs Chronic Illness/Social Conditions which may negatively complicate care or outcome(s)-explain: None or not applicable EKG EKG not done Labs Labs: none Imaging Imaging interpretation: none Medication Administration(s) none Diagnosis Differential Diagnosis ED Complaint MDM: Ascites, cirrhosis
--- NOTE | 2025-08-11 16:59 | PC.NURSE ---
Patient seen exiting ED lobby, this underwriter mortgage loan asked her if she was waiting outside, patient stated she was leaving, patient left ED walking at 1416.
== END 2025-08-11 17:04 | disposition left against medical advice (07) ==
PROVIDERS: Emergency Provider Family Medicine; PCP Family Medicine
DX: R18.8 Other ascites (principal); K74.60 Unspecified cirrhosis of liver
CPT/HCPCS: 49083; 99282; C1729